=== PATIENT | male | born 1955 | race Caucasian/White ===

== ENCOUNTER 2017-09-12 11:35 | Emergency (ER) | payer MEDICARE ==
[2017-09-12 12:10] LABS: #Eosinphils 1.6 thou/uL (0.0-0.7); #Lymphocytes 2.3 thou/uL (1.20-3.40); #Monocytes 0.8 thou/uL (0.11-0.59); #Neutrophils 5.2 thou/uL (1.40-6.50); %Basophils 0.4 % (0.0-1.0); %Eosinophils 16.4 % (0.0-10.0); %Lymphocytes 22.7 % (21.0-51.0); Mean Platelet Volume 8.9 fL (7.4-10.4); Red Blood Cell (RBC) Count 5.17 mill/uL (4.70-6.10)
[2017-09-12 12:26] LABS: ALT (SGPT) 185 U/L (8-55); AST (SGOT) 249 U/L (5-34); Alkaline Phosphatase 145 U/L (40-150); Anion Gap 12 mmol/L (10-20); BUN (Urea Nitrogen) 14 mg/dL (8.4-25.7); Bilirubin, Total 1.9 mg/dL (0.2-1.2); CK (CPK) 74 U/L (30-200); Calc. Creatinine Clearance 0 mL/min (70-130); Calcium 9.7 mg/dL (7.8-10.44); Carbon Dioxide 24 mmol/L (23-31); Chloride 100 mmol/L (98-107); Estimated GFR-MDRD Greater than 90; Globulin 4.5 g/dL (2.4-3.5)
[2017-09-12 12:37] LABS: Troponin I Less than 0.010 ng/mL (< 0.028)
--- NOTE | 2017-09-12 12:51 | RAD ---
PORTABLE CHEST: 09/12/2017 PROVIDED CLINICAL HISTORY: Loss of balance. FINDINGS: The cardiac and mediastinal silhouette is within normal limits. Vascular calcification involving th e aortic arch. Emphysematous changes are suspected. No focal consolidation, pleural fluid, or pneu mothorax apparent. IMPRESSION: No evidence for an acute cardiopulmonary process. POS: [facility]
--- NOTE | 2017-09-12 13:32 | CT ---
CT BRAIN WITHOUT CONTRAST: Date: 09/12/17 HISTORY: Left-sided ataxia. COMPARISON: None. FINDINGS: There is prominence of the cisterna magna. Mild periventricular white matter disease. No acute hemor rhage or infarct. Old lacunar infarcts bilaterally. Paranasal sinuses and mastoids are clear. IMPRESSION: 1. No acute intracranial abnormality. 2. Moderate microangiopathic changes. POS: [facility]
--- NOTE | 2017-09-21 16:40 | EKG ---
Test Reason : Blood Pressure : / mmHG Vent. Rate : 079 BPM Atrial Rate : 079 BPM P-R Int : 142 ms QRS Dur : 068 ms QT Int : 382 ms P-R-T Axes : 088 016 024 degrees QTc Int : 438 ms Normal sinus rhythm Minimal voltage criteria for LVH, may be normal variant Anterior infarct , age undetermined Abnormal ECG Confirmed by GAEL DAMON, FRANCESCA ([id number]), features editor ZAIDA PALM ([id number]) on 09/21/2017 4:40:28 PM Referred By: Confirmed By:FRANCESCA MAYO MD
== END 2017-09-12 14:39 | disposition home or self-care (01) ==
LOC: ERS 11:35
DX: R27.0 Ataxia, unspecified (principal); I10 Essential (primary) hypertension; F17.210 Nicotine dependence, cigarettes, uncomplicated
CPT/HCPCS: 70450; 71010; 80053; 82550; 82553; 84484; 85025; 93005; 96360

== ENCOUNTER 2017-10-18 09:52 | Day surgery (SDC) | payer MEDICARE ==
[2017-10-10 16:10] VITALS: BMI 19.6
--- NOTE | 2017-10-18 05:52 | HP ---
HISTORY OF PRESENT ILLNESS: Mr. Urban is a pleasant 62-year-old man who presented to our clinic refe rral from Dr. Phoenix for severe cervical spondylosis and myelopathy C3 through C5 and an MRI from [facility] reveals profound central canal and foraminal stenosis. He relates symptoms of bilatera l hand weakness since 07/2017. This is very distressing to him and he would like to have addressed a s soon as possible. PAST MEDICAL HISTORY: Ataxia, dizziness, , and hypertension. CURRENT MEDICATIONS: Lisinopril. ALLERGIES: No known drug allergies. PAST SURGICAL HISTORY: None. PHYSICAL EXAMINATION: NEUROLOGIC: The patient is alert and oriented x3. His gait is severely altered and ataxic using a w alker for balance. His upper extremity motor exam reveals 4/5 weakness and bilateral anesthetic assistant strength a s well as diffusely to the upper extremity motor exam. He has some contractures in the fingers that are chronic. ASSESSMENT: Cervical spondylosis with myelopathy. PLAN: Discussed the case with Dr. Sales, he met with the patient and ultimately advocated for a C3 t hrough C5 ACDF. He explained to the patient the risks, benefits, and alternatives to the procedure. The patient expressed understanding and would like to move forward with the surgery as discussed. I do believe the patient is mentally competent and capable of making medical decisions for himself. Ady baumann will move forward with surgery as planned. Marcos Herrera PA-C dictating for Prateek Sales M.D.
[2017-10-18] MEDS ORDERED: CEFAZOLIN/Water 2 GM/20 ML SYRINGE ONE ×2 (12:10→17:06)
[2017-10-18] MEDS ORDERED: Fentanyl 250 MCG/5 ML VIAL ONE (13:24)
[2017-10-18] MEDS ORDERED: Thrombin 5000 UNITS/5 ML VIAL ONE (13:40)
[2017-10-18] MEDS ORDERED: Tamsulosin HCl 0.4 MG CAP ONE (15:54)
[2017-10-18] MEDS ORDERED: Glycopyrrolate 0.2 MG/ML 5 ML SYRINGE ONE (16:05)
[2017-10-18] MEDS ORDERED: Dexamethasone 20 MG/5 ML VIAL ONE (16:05)
[2017-10-18] MEDS ORDERED: Lidocaine 1% PF 5 ML VIAL ONE (16:05)
[2017-10-18] MEDS ORDERED: Ketorolac Tromethamine 30 MG/ML VIAL ONE (16:05)
[2017-10-18] MEDS ORDERED: Propofol 200 MG/20 ML VIAL ONE (16:05)
[2017-10-18] MEDS ORDERED: Ondansetron HCl/PF 4 MG/2 ML Vial ONE (16:05)
[2017-10-18] MEDS ORDERED: PHENYLEPHRINE-NS 100 MCG/ML 10 ML SYRINGE ONE (16:05)
[2017-10-18] MEDS ORDERED: ePHEDrine/0.9% NaCl/PF SYRINGE 50 mg/10 ml ONE (16:05)
[2017-10-18] MEDS ORDERED: Fentanyl 100 MCG/2 ML VIAL ONE (16:18)
--- NOTE | 2017-10-21 14:12 | OP ---
DATE OF SERVICE: 10/18/2017 SURGEON: Prateek Sales M.D. INDUSTRIAL DESIGN INTERN: Vitaliy Herrera PA-C. INDICATION: Prevent neurologic decline. DIAGNOSIS: Cervical spondylitic myelopathy. PROCEDURE: Anterior cervical discectomy and fusion C3-C5. ANESTHESIA: General. PROCEDURE IN DETAIL: The patient was brought into the operating room and placed under general anesth esia. He was placed on the table in a supine position. A transverse incision was planned over the l ateral aspect of the neck on the right. After prepping and draping and after an appropriate operativ e pause, the incision was created. The underlying platysma muscles identified and incised. A blunt tissue plane anterior to the sternocleidomastoid muscle was used to gain access to the prevertebral s pace. After confirming the appropriate level with C-arm fluoroscopy, annulotomies were performed at C3-C4 and C4-C5 disk spaces. Disk material and anterior and posterior osteophytes were removed until there was decompression of the underlying spinal canal. A PEEK cage packed with allograft and autog raft material was placed within the interbody space. An anterior cervical plate was then fashioned t o the front of the spine and secured with a total of 6 screws. Midline and lateral structures were i nspected and found to be free from significant trauma. The wound was irrigated. Hemostasis was main tained throughout. The wound was then closed in anatomic layers and a pressure dressing was applied. There were no known procedural complications.
== END 2017-10-18 17:45 | disposition home or self-care (01) ==
LOC: SDC 09:52
PROVIDERS: ATTEND Neurological Surgery
PROC: 0RG20A0 Fusion of 2 or more Cervical Vertebral Joints with Interbody Fusion Device, Anterior Approach, Anterior Column, Open Approach (ICD-10-PCS; principal; 2017-10-18)
DX: M47.12 Other spondylosis with myelopathy, cervical region (principal); I10 Essential (primary) hypertension; Z79.899 Other long term (current) drug therapy
CPT/HCPCS: 20930; 20936; 22551; 22552; 22853 ×2; 76001; 96374; C1713; J0131; J1100; J1885; J2001; J2405; J2704; J3010

== ENCOUNTER 2018-06-01 11:09 | Inpatient (IN) | payer MEDICARE ==
[2018-06-01] MEDS ORDERED: Morphine 4 MG/ML VIAL ONE (11:29)
[2018-06-01 11:32] LABS: #Basophils 0.1 thou/uL (0.0-0.2); #Lymphocytes 1.9 thou/uL (1.20-3.40); #Neutrophils 13.1 thou/uL (1.40-6.50); %Basophils 0.5 % (0.0-1.0); %Eosinophils 0.1 % (0.0-10.0); %Lymphocytes 11.9 % (21.0-51.0); %Monocytes 6.5 % (0.0-10.0); %Neutrophils 81.2 % (42.0-75.0); Hemoglobin 15.5 g/dL (14.0-18.0); Mean Corpuscular HGB CONC 35.4 g/dL (32.0-36.0); Mean Corpuscular Hemoglobin 34.8 pg (27.0-31.0); Mean Corpuscular Volume 98.3 fL (78.0-98.0); Mean Platelet Volume 8.1 fL (7.4-10.4); Platelet Count 168 thou/uL (130-400); RBC Distribution Width 11.7 % (11.5-14.5); Red Blood Cell (RBC) Count 4.46 mill/uL (4.70-6.10); White Blood Cell (WBC) Count 16.1 thou/uL (4.8-10.8)
[2018-06-01] MEDS ORDERED: Piperacillin/Tazobactam 4.5 GM VIAL ONE (11:39)
[2018-06-01 11:51] LABS: ALT (SGPT) 127 U/L (8-55); AST (SGOT) 142 U/L (5-34); Albumin 3.4 g/dL (3.4-4.8); Alkaline Phosphatase 114 U/L (40-150); Anion Gap 17 mmol/L (10-20); BUN (Urea Nitrogen) 9 mg/dL (8.4-25.7); Bilirubin, Total 1.2 mg/dL (0.2-1.2); Calc. Creatinine Clearance 0 mL/min (70-130); Calcium 9.3 mg/dL (7.8-10.44); Carbon Dioxide 18 mmol/L (23-31); Chloride 102 mmol/L (98-107); Estimated GFR-MDRD Greater than 90; Globulin 4.2 g/dL (2.4-3.5); Glucose 141 mg/dL (80-115); Potassium 4.8 mmol/L (3.5-5.1); Protein, Total 7.6 g/dL (5.8-8.1); Sodium 132 mmol/L (136-145)
--- NOTE | 2018-06-01 11:53 | CT ---
CT OF HEAD NONCONTRAST: COMPARISON: 09/12/17. INDICATION: Fall with head injury and pain. FINDINGS: There is mild prominence of the ventricular system with mild chronic microvascular ischemic disease. Stable added CSF density of the posterior fossa is present that may relate to vivian cisterna magna. There is multifocal punctate hypoattenuation of the bilateral basal ganglia and thalami indicating la cunar infarctions, some of which are age-indeterminate. No hemorrhage, mass effect, or midline shift present. IMPRESSION: 1. No acute intracranial hemorrhage or mass effect. 2. Multifocal lacunar infarctions of the bilateral basal ganglia and thalami, some of which are age- indeterminate. Recommend clinical correlation and, as necessary, followup with noncontrast brain MRI may prove useful. POS: [facility]
--- NOTE | 2018-06-01 12:00 | CT ---
CT OF THE CERVICAL SPINE WITHOUT CONTRAST: INDICATION: History of fall with neck pain. COMPARISON: None. FINDINGS: There is an ACDF spanning C3 through C5. The instrumentation appears intact. There is moderate mult ilevel spondylosis of the cervical spine. There is diffuse osteopenia. Craniocervical junction is w ithin normal limits. The lung apices are clear. IMPRESSION: 1. No acute fracture or subluxation is evident. 2. Postoperative cervical spine. 3. Moderate spondylosis of the cervical spine. POS: [facility]
[2018-06-01] MEDS ORDERED: Adacel (T-DAP) 0.5 ML VIAL ONE (12:01)
--- NOTE | 2018-06-01 12:07 | RAD ---
AP VIEW OF THE PELVIS: INDICATION: Fall with pelvic pain. IMPRESSION: No acute fracture or subluxation is evident. There is mild degenerative arthrosis of both hips. The re are abnormal linear collections of gas seen along both hemipelvic sidewalls suspicious for extrape ritoneal soft tissue gas. This may reflect gluteal laceration or possible perirectal laceration give n the patient has a history of trauma to the rectal region. A CT of the abdomen and pelvis with IV c ontrast was recommended for additional characterization. POS: [facility]
--- NOTE | 2018-06-01 12:09 | RAD ---
FRONTAL VIEW CHEST: COMPARISON: 09/12/17. INDICATION: Fall with injury. FINDINGS: Lungs are clear. No free air beneath the hemidiaphragms. Cardiac silhouette is normal in size for t he portable technique. There is vascular calcification. Surgical change of the cervical spine is pr esent. There is a chronic posttraumatic deformity of the lateral left clavicle. IMPRESSION: No focal consolidation. POS: [facility]
--- NOTE | 2018-06-01 12:16 | CT ---
CT OF THE ABDOMEN AND PELVIS WITH IV CONTRAST: INDICATION: Penetrating injury from a bar in the ground through the rectum with bleeding from the rectum. COMPARISON: None. FINDINGS: There is bibasilar atelectasis. There is cirrhotic morphology of the liver. The pancreas and adrenal glands are normal appearing. T he kidneys are normal appearing. There are moderate calcifications noted involving the abdominopelvic vasculature. There is extensive extraperitoneal gas seen within the pelvis, left greater than right. There is gas extending along the left obturator externis and down the left sciatic nerve. There is extraperitone al gas extending up the anterior aspect of the lower abdominal wall. There is gas extending along th e psoas musculature of the retroperitoneum. No intraperitoneal free air is evident. There is a penetrating injury demonstrated involving the right gluteal fold, anus, and exiting out th e left aspect of the lower rectum on image 73 of series 3 at the level of the pelvic floor musculatur e. There is a presacral fluid and gas collection seen near the injury site on image 68 of series 3. The bladder is unremarkable appearing. The visualized colon appears within normal limits. The smal l bowel is of normal caliber. Small gallstones are seen within the gallbladder. There is diffuse os teopenia. No definite acute osseous abnormality is evident. IMPRESSION: 1. Penetrating traumatic injury seen involving the right gluteal fold entering into the anus and exi ting out the rectum at the level of the left pelvic floor with extensive presacral fluid and gas svitlana ection. There is scattered gas present within the extraperitoneal space of the pelvis, lower anterio r abdominal wall and along the posterior aspect of the left hip. General surgery consultation is rec ommended. 2. Cirrhotic morphology of the liver. 3. Cholelithiasis. 4. Moderate calcification involving the abdominopelvic vasculature. 5. Findings called to Dr. Ta at 11:45 a.m. on 06/01/18. CODE CR POS: [facility]
--- NOTE | 2018-06-01 12:36 | HP ---
DATE OF ADMISSION: 06/01/2018 HISTORY OF PRESENT ILLNESS: Mr. Urban is a 62-year-old man who was ethanol intoxicated last night. The patient reported accidentally falling on top of an exposed utility copper pipe, which is approximately 12 inches in length. He thinks he might have been impaled about 6 inches. The patient reported large amount of blood loss overnight. He thought the injury would get better overnight. This accident occurred approximately 22:00 hours. The patient presented to the emergency department now over 12 hours from injury complaining of severe anorectal pain. The patient reported having gross hematuria last night, but has not urinated since. He denies any abdominal pain at this time. He denies any nausea or vomiting. Denies any fevers or chills. 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 SURGICAL HISTORY: Pertinent for cervical spine fusion in 12/2017. SOCIAL HISTORY: The patient lives independently. He is a disabled wharf labourer. He smokes 1 pack of cigarette per day and has done so for over 50 years. He drinks 4-5 beers per day. He has smoked marijuana in the past. He denies any other illicit drug abuse. FAMILY HISTORY: Notable for father who from complications of head and neck carcinoma, which she thinks was from tobacco abuse. His mother had old age Parkinson's disease. He denies any family history of essential hypertension , heart disease or cancer. PREHOSPITAL MEDICATIONS: Includes lisinopril 20 mg p.o. daily, Tylenol with Codeine p.r.n. and Flexeril p.o. p.r.n. REVIEW OF SYSTEMS: Ten point review of systems essentially unremarkable except for as stated in past medical history and chief complaint. PHYSICAL EXAMINATION: GENERAL: This reveals a 62-year-old normally developed man who is otherwise coherent and interactive and appears stated age. The patient is alert and oriented x3, appears to be in no acute distress at the time of my evaluation. VITAL SIGNS: Includes blood pressure 152/106, pulse 97, respirations 20, temperature 99.1 degrees Fahrenheit and oxygen saturation 97% on room air. HEENT: Reveals normocephalic and atraumatic. Pupils are equal, round, reactive to light and accommodation. Extraocular muscles are intact bilaterally. No scleral icterus present. Oral mucosa is pink and moist. He is edentulous. HEART: Reveals regular rate with sinus tachycardia. No murmurs or gallops auscultated. LUNGS: Clear to auscultation bilaterally. Breathing is regular and unlabored. ABDOMEN: Soft, nontender and nondistended. EXTREMITIES: Reveals 2+ radial and pedal pulses bilaterally. No ankle edema is present. GENITOURINARY: Examination reveals no blood in the urethral meatus. There is no ecchymosis or hematoma of the scrotum or perineum. RECTAL: Examination could not be performed. The patient is exquisitely painful. On my examination, there is a significant amount of induration and old blood in the anosacral region. There is a 3 x 4 cm complex tissue disruption in the area. No gross purulence is present. NEUROLOGIC: Examination reveals no focal deficits present. LABORATORY DATA AND IMAGING DATA: Pertinent laboratory findings today includes CBC with 16,100 white blood cells, hemoglobin and hematocrit 15.5 and 43.9 respectively. Platelet count is 168,000. Metabolic profile: Sodium 132, potassium is 4.8, chloride is 102, bicarbonate is 18, BUN 9, creatinine 0.84, glucose 141, total bilirubin 1.2, AST and ALT both elevated at 142 and 127 respectively. I have personally reviewed the CT scan of the brain which is unremarkable. CT scan of the abdomen and pelvis reveals soft tissue extraperitoneal injury to the anorectal region extending to the sacrum and perineum. There is gas in the soft tissue. Cervical spine CT scan is unremarkable for any fractures or dislocation. IMPRESSION: 1. Traumatic rectal injury secondary to reportedly a 12-inch copper pipe. 2. History of chronic tobacco and alcoholism. 3. History of essential hypertension. PLAN: 1. Given the history of gross hematuria, we will obtain retrograde urethrogram as I am unable to perform adequate rectal examination to exclude prostatic injury. 2. We will also include cystogram to exclude any extraperitoneal bladder injury. 3. The patient will be taken to the operating room for rectal examination under anesthesia with debridement and washout of the involved injury. We will attempt a primary repair if this is obtainable. Otherwise we will consider diverting loop transverse colostomy which will be temporary for this patient. The above findings and plan have been discussed with the patient who indicates understanding of the information given. I have advised the patient the risks and benefits of the proposed surgery. Risks include, but not limited to bleeding, infection, injury to bowel or surrounding structures. The patient faces additional risk for anal stenosis in a delayed fashion. This information given to the patient in the presence of his nurse. He indicates understanding of information provided. I have answered his questions. The patient has given consent for this admission and surgical intervention. LIEN
--- NOTE | 2018-06-01 12:41 | RAD ---
RETROGRADE URETHROGRAM: INDICATION: Concern for urethral injury. TECHNIQUE: The penile urethral meatus was cannulated with a Adelaide tree device. 30 cc of Omnipaque 300 was a dministered in a retrograde fashion through the patient's urethra. FINDINGS: The penile, bulbous, membranous, and prostatic urethra have a normal appearance. There was retrograd e flow of contrast through the urethra into the bladder. There was contrast from the patient's recen t CT examination within the bladder on the slimer image. IMPRESSION: No evidence of urethral injury. POS: [facility]
[2018-06-01 13:14] LABS: Bilirubin Negative (Negative); Blood, Urine Moderate (Negative); Clarity CLEAR (Clear); Glucose, Urine (Dipstick) Negative (Negative); Leukocyte Negative (Negative); Nitrite Negative (Negative); Protein, Urine (Dipstick) Negative (Neg-Trace); Specific Gravity, Urine 1.043 (1.002-1.036); Urobilinogen 0.2 mg/dL (0.2-1.0)
[2018-06-01 13:17] LABS: Bacteria/HPF None Seen HPF (None Seen); Hyaline Casts/LPF 0-3 HYALINE CAST LPF (0-3 Hyaline); Pathc Cast-AUWi Flag 0.58 (0-2.49); RBC/HPF 0-3 HPF (0-3); Squamous Epithelial 0-3 HPF (0-3); WBC/HPF 0-3 HPF (0-3)
[2018-06-01 13:22] LABS: Renal Epithelial None Seen HPF (0-3); Transitional Epithelial NONE SEEN HPF (0-3)
[2018-06-01 13:23] LABS: Amphetamine Not Detected (NotDetected); Barbiturates Screen Not Detected (NotDetected); Benzodiazepine Screen Not Detected (NotDetected); Cocaine Metabolite Screen Detected (NotDetected); Medtox Control Line Valid? VALID (VALID); Medtox Reader # READER 4; Methadone Not Detected (NotDetected); Methamphetamine Not Detected (NotDetected); Opiate Screen Detected (NotDetected); Oxycodone Screen Not Detected (NotDetected); Phencyclidine (PCP) Not Detected (NotDetected); THC/Cannabinoid Screen Not Detected (NotDetected); Tricyclic Screen Not Detected (NotDetected)
[2018-06-01] MEDS ORDERED: Fentanyl 100 MCG/2 ML VIAL ONE ×3 (13:52→18:44)
[2018-06-01] MEDS ORDERED: Ketamine 50 MG/ML VIAL ONE (13:52)
[2018-06-01] MEDS ORDERED: Albuterol Sulfate HFA (OR ONLY) ONE (13:57)
[2018-06-01] MEDS ORDERED: ISOVUE-370 76%-LOCM 1 ML ONE (14:55)
[2018-06-01] MEDS ORDERED: Iopamidol 300 61% 100 ML VIAL FS ONE (15:00)
[2018-06-01] MEDS ORDERED: PHENYLEPHRINE-NS 100 MCG/ML 10 ML SYRINGE ONE (15:56)
[2018-06-01] MEDS ORDERED: Dexamethasone 20 MG/5 ML VIAL ONE (15:56)
[2018-06-01] MEDS ORDERED: Glycopyrrolate 0.2 MG/ML 5 ML SYRINGE ONE (15:56)
[2018-06-01] MEDS ORDERED: Lidocaine 1% PF 5 ML VIAL ONE (15:56)
[2018-06-01] MEDS ORDERED: PROPOFOL 200 MG/20 ML VIAL ONE (15:56)
[2018-06-01] MEDS ORDERED: Phenylephrine HCL 10 MG/ML VIAL ONE (16:07)
[2018-06-01] MEDS ORDERED: Piperacillin/Tazobactam 3.375 GM VIAL ONE (16:32)
[2018-06-01] MEDS ORDERED: Promethazine HCl 25 MG/ML VIAL IM PRN (18:22)
[2018-06-01] MEDS ORDERED: Ondansetron HCl/PF 4 MG/2 ML Vial IVP PRN ×2 (18:22→19:38)
[2018-06-01] MEDS ORDERED: Ondansetron ODT 4 MG TAB PO PRN ×2 (18:22→19:38)
[2018-06-01] MEDS ORDERED: Dextrose 5% in Water 1,000 ML IV PRN ×2 (18:22→19:38)
[2018-06-01] MEDS ORDERED: Dextrose 50% Abboject 50 ML SYRINGE SLOW IVP PRN ×2 (18:22→19:38)
[2018-06-01] MEDS ORDERED: traMADol HCl 50 MG TAB PO PRN (18:26)
[2018-06-01] MEDS ORDERED: Ketorolac Tromethamine 30 MG/ML VIAL IVP PRN (18:26)
[2018-06-01] MEDS ORDERED: Acetaminophen 500 MG TAB PO SCH (18:30)
[2018-06-01] MEDS ORDERED: Fentanyl 100 MCG/2 ML VIAL SLOW IVP PRN (19:13)
[2018-06-01 19:31] VITALS: BMI 20.2
[2018-06-01] MEDS ORDERED: hydrALAZINE 20 MG/ML VIAL SLOW IVP PRN (19:38)
[2018-06-01] MEDS ORDERED: Oxazepam 10 MG CAP PO SCH ×2 (20:00→21:00)
[2018-06-01] MEDS ORDERED: Famotidine/PF 20 mg/2ml Vial SLOW IVP SCH (21:00)
[2018-06-01] MEDS: Sodium Chloride 0.9% 1,000 ML IV SCH (21:12)
[2018-06-01] MEDS: Acetaminophen 1,000 MG in Premix Bag 1 BAG IVPB SCH (21:26)
[2018-06-01] MEDS: Famotidine 20 MG TAB PO SCH (21:27)
[2018-06-01] MEDS: Enoxaparin Sodium 40 MG/0.4 ML SYRINGE SC SCH (21:27)
[2018-06-01] MEDS: Famotidine/PF 20 mg/2ml Vial SLOW IVP SCH (21:54)
--- NOTE | 2018-06-01 22:53 | OP ---
DATE OF OPERATION: 06/01/2018 PREOPERATIVE DIAGNOSIS: Impalement injury to the anorectal region by a 12-inch copper pipe. POSTOPERATIVE DIAGNOSES: 1. Impalement injury to the anorectal region by a 12-inch copper pipe. 2. 4-cm distal rectal injury proximal and including the external sphincter. 3. Complex soft tissue injury in the anosacral region with extensive amount of soft tissue destructi on. PROCEDURES PERFORMED: 1. Rectal examination under anesthesia. 2. Debridement and washout of anosacral injury. 3. Primary repair of a 4-cm rectal laceration. 4. Proctoscopy. 5. Loop transverse colostomy. ESTIMATED BLOOD LOSS: 20 mL. FLUIDS GIVEN: 1500 mL of crystalloids. COUNTS: Sponge and instrument counts certified as correct x2. COMPLICATIONS: None apparent at the time of operation. INDICATIONS FOR PROCEDURE: This is a 62-year-old man who was impaled in the anorectal region by a 12 -inch copper pipe approximately 13 hours prior to presentation. Examination in the Emergency Departm ent was suboptimal due to severe pain. The patient was brought to the operating room for rectal exam ination under anesthesia. Findings are consistent with extensive destruction of soft tissue in the a nosacral region as well as a 4-cm full-thickness distal rectal laceration including the external sphi ncter. DESCRIPTION OF PROCEDURE: Informed consent obtained from the patient, who was brought to the operati ng room and placed in supine position. Following general anesthesia, the patient was placed in the p lavinia position, jackknife. The anorectal and gluteal region were widely prepped and draped in the usual fashion. Digital rectal examination revealed a rectal injury, which extends into the presacral space. I then introduced a proctoscope visualizing the entire length of the injury and no proximal involveme nt. A portion of the external sphincter has been damaged. Necrotic and nonviable tissues were sharp ly debrided using Metzenbaum scissors. The rectal injury was then repaired using a running stitch of 3-0 Vicryl. I then proceeded to inspec t the anosacral region. This created a large defect. Readily available nonviable tissues were sharp ly debrided again using Metzenbaum scissors. The wound cavity was copiously irrigated with saline an d then packed with 1-inch iodoform gauze. Due to the proximity to the anus and the extent of soft tissue destruction, decision was made therefo re to divert fecal stream. To this end, the patient was replaced in a supine position. Under new set of gown and gloves, the abdomen was sterilely prepped and draped in usual fashion. A s upraumbilical midline incision was made using a 15 scalpel. Incision was carried through subcutaneou s tissues maintaining hemostasis using thermocautery. Fascia was incised in midline exposing the per itoneum beneath, which was grasped x2 with hemostats. Peritoneal cavity was then sharply entered usi ng Metzenbaum scissors. I then put a medium-sized Lockwood retractor to gain exposure. Omentum wa s pulled through and then under the omentum, the transverse colon was identified. The loop of the tr ansverse colon was pulled through the wound using a Perkins forceps. I applied Sarika clamps to hold fascial edges apart. I then placed a colostomy bridge through a defect that I created in the transv erse colon mesentery. The remainder of the omentum was then replaced into the peritoneal cavity. Fascia was approximated i n the midline distal and proximal to the loop of transverse colon. This was achieved using interrupt ed sutures of 0 Vicryl. The skin, superior and inferior apices were approximated using interrupted s utures of 4-0 Monocryl. Dermabond was applied there. We then decided to mature the colostomy. To a chieve this, incision was made along the tenia using cautery and extended using Metzenbaum scissors. A functional Gloria colostomy was perfected using interrupted sutures of 2-0 chromic. Ostomy applia nce was then put in place. The patient tolerated these procedures without any apparent complication and he was returned to the recovery room in satisfactory condition.
[2018-06-01] MEDS: Piperacillin/Tazobactam 3.375 GM in Sodium Chloride 0.9% 100 ML IVPB SCH (23:27)
[2018-06-01] MEDS ORDERED: Piperacillin/Tazobactam 3.375 GM in Sodium Chloride 0.9% 100 ML IVPB SCH (23:59)
[2018-06-02] MEDS: Acetaminophen 1,000 MG in Premix Bag 1 BAG IVPB SCH ×3 (01:47→15:10)
[2018-06-02] MEDS: Sodium Chloride 0.9% 1,000 ML IV SCH ×3 (04:28→21:19)
[2018-06-02] MEDS: Piperacillin/Tazobactam 3.375 GM in Sodium Chloride 0.9% 100 ML IVPB SCH ×4 (05:07→23:08)
[2018-06-02] MEDS: Oxazepam 10 MG CAP PO SCH ×3 (05:07→21:18)
[2018-06-02 06:25] LABS: Band 15 % (5-11); Hemoglobin 12.6 g/dL (14.0-18.0); Lymphocytes 6 % (21-51); MDiff Complete? YES; Mean Corpuscular HGB CONC 35.3 g/dL (32.0-36.0); Mean Corpuscular Volume 99.2 fL (78.0-98.0); Mean Platelet Volume 8.9 fL (7.4-10.4); Monocytes 6 % (0-10); Neutrophil 73 % (42-75); PLT Morphology Comment Appears Decreased; Platelet Count 109 thou/uL (130-400); RBC Distribution Width 11.7 % (11.5-14.5); White Blood Cell (WBC) Count 16.1 thou/uL (4.8-10.8)
[2018-06-02 06:38] LABS: ALT (SGPT) 71 U/L (8-55); AST (SGOT) 65 U/L (5-34); Albumin 2.6 g/dL (3.4-4.8); Alkaline Phosphatase 72 U/L (40-150); Anion Gap 10 mmol/L (10-20); BUN (Urea Nitrogen) 14 mg/dL (8.4-25.7); Bilirubin, Total 1.7 mg/dL (0.2-1.2); Calc. Creatinine Clearance 93 mL/min (70-130); Calcium 7.6 mg/dL (7.8-10.44); Carbon Dioxide 21 mmol/L (23-31); Chloride 107 mmol/L (98-107); Estimated GFR-MDRD Greater than 90; Globulin 3.2 g/dL (2.4-3.5); Glucose 153 mg/dL (80-115); Potassium 4.1 mmol/L (3.5-5.1); Protein, Total 5.8 g/dL (5.8-8.1); Sodium 134 mmol/L (136-145)
[2018-06-02] MEDS ORDERED: Folic Acid 1 MG TAB PO SCH (09:00)
[2018-06-02] MEDS: Famotidine/PF 20 mg/2ml Vial SLOW IVP SCH ×2 (09:05→21:19)
[2018-06-02] MEDS: Folic Acid 1 MG TAB PO SCH (09:10)
[2018-06-02] MEDS: Famotidine 20 MG TAB PO SCH ×2 (09:10→21:18)
[2018-06-02] MEDS: Enoxaparin Sodium 40 MG/0.4 ML SYRINGE SC SCH (21:19)
--- NOTE | 2018-06-03 03:48 | PRG ---
DATE OF SERVICE: 06/02/2018 The patient is currently on the surgical floor. He is postop day #1, status post falling and impalin g himself on a post, which penetrated his rectal area. The patient underwent emergent irrigation, de bridement, and had a colostomy placed. He tolerated his procedures well. Overnight, his pain was co ntrolled. He was tolerating clear liquid diet. PHYSICAL EXAMINATION: VITAL SIGNS: Temperature is 97.9, heart rate 70, blood pressure 126/68, respirations 18, oxygen satu ration 95%. GENERAL: The patient is resting comfortably in bed. He is awake, alert, and oriented x3. HEENT: Unremarkable. LUNGS: Clear to auscultation with good inspiratory and expiratory effort. HEART: Regular rate and rhythm. ABDOMEN: Soft, minimally tender, nondistended. His ostomy bag has small amount of liquid stool and a large volume of gas in it. His postop dressing posteriorly is clean, dry, and intact. EXTREMITIES: Neurovascularly intact. LABORATORY DATA: White blood cell count 16.1, hemoglobin 12.6, hematocrit 35.7, platelets 109. Sodi um 134, potassium 4.1, chloride 107, CO2 21, BUN 14, creatinine 0.76, glucose 153, total bilirubin 1. 7, AST 65, ALT 71, alkaline phosphatase 72. ASSESSMENT AND PLAN: 1. Status post fall with impairment and gluteal region. 2. Status post colostomy placement. PLAN: Plan will be to take the patient to the operating room tomorrow for repeat washout and most li siddharth wound VAC placement. The evaluation and examination were done with Dr. Skinner during rounds this morning.
[2018-06-03] MEDS: Oxazepam 10 MG CAP PO SCH ×3 (05:15→21:20)
[2018-06-03] MEDS: traMADol HCl 50 MG TAB PO PRN ×2 (05:15→21:22)
[2018-06-03] MEDS: Piperacillin/Tazobactam 3.375 GM in Sodium Chloride 0.9% 100 ML IVPB SCH ×4 (05:15→23:54)
[2018-06-03] MEDS: Sodium Chloride 0.9% 1,000 ML IV SCH (05:16)
[2018-06-03 05:22] LABS: #Lymphocytes 2.8 thou/uL (1.20-3.40); #Monocytes 0.6 thou/uL (0.11-0.59); #Neutrophils 6.9 thou/uL (1.40-6.50); %Basophils 0.4 % (0.0-1.0); %Eosinophils 0.4 % (0.0-10.0); %Lymphocytes 27.2 % (21.0-51.0); %Monocytes 5.3 % (0.0-10.0); %Neutrophils 66.7 % (42.0-75.0); Hemoglobin 11.4 g/dL (14.0-18.0); Mean Corpuscular HGB CONC 33.9 g/dL (32.0-36.0); Mean Corpuscular Hemoglobin 34.2 pg (27.0-31.0); Platelet Count 93 thou/uL (130-400); RBC Distribution Width 11.8 % (11.5-14.5); Red Blood Cell (RBC) Count 3.32 mill/uL (4.70-6.10); White Blood Cell (WBC) Count 10.4 thou/uL (4.8-10.8)
[2018-06-03 05:41] LABS: Anion Gap 9 mmol/L (10-20); BUN (Urea Nitrogen) 14 mg/dL (8.4-25.7); Calc. Creatinine Clearance 99 mL/min (70-130); Calcium 7.5 mg/dL (7.8-10.44); Carbon Dioxide 20 mmol/L (23-31); Chloride 110 mmol/L (98-107); Estimated GFR-MDRD Greater than 90; Glucose 114 mg/dL (80-115); Magnesium 1.7 mg/dL (1.6-2.6); Potassium 3.5 mmol/L (3.5-5.1); Sodium 135 mmol/L (136-145)
[2018-06-03 05:44] LABS: Phosphorus 1.5 mg/dL (2.3-4.7)
[2018-06-03] MEDS ORDERED: Potassium Phosphate 30 MMOL in Sodium Chloride 0.9% 500 ML IVPB SCH (06:15)
[2018-06-03] MEDS: Famotidine/PF 20 mg/2ml Vial SLOW IVP SCH (08:46)
[2018-06-03] MEDS: Famotidine 20 MG TAB PO SCH ×2 (08:47→21:21)
[2018-06-03] MEDS: Folic Acid 1 MG TAB PO SCH (08:48)
[2018-06-03] MEDS ORDERED: Fentanyl 100 MCG/2 ML VIAL ONE ×2 (10:16→12:10)
[2018-06-03] MEDS: Acetaminophen 500 MG TAB PO SCH ×3 (12:00→23:54)
[2018-06-03] MEDS ORDERED: Ibuprofen 600 MG TAB PO PRN (12:10)
[2018-06-03] MEDS ORDERED: Ondansetron HCl/PF 4 MG/2 ML Vial IVP PRN (12:10)
[2018-06-03] MEDS ORDERED: Promethazine HCl 25 MG/ML VIAL IM PRN (12:10)
[2018-06-03] MEDS ORDERED: Promethazine HCl 25 MG/ML VIAL SLOW IVP PRN (12:10)
[2018-06-03] MEDS ORDERED: Lidocaine 1% PF 5 ML VIAL ONE (13:30)
[2018-06-03] MEDS ORDERED: Glycopyrrolate 0.2 MG/ML 5 ML SYRINGE ONE (13:30)
[2018-06-03] MEDS ORDERED: PROPOFOL 200 MG/20 ML VIAL ONE (13:30)
[2018-06-03] MEDS ORDERED: PHENYLEPHRINE-NS 100 MCG/ML 10 ML SYRINGE ONE (13:30)
[2018-06-03] MEDS ORDERED: Ondansetron HCl/PF 4 MG/2 ML Vial ONE (13:30)
--- NOTE | 2018-06-03 17:24 | OP ---
DATE OF PROCEDURE: 06/03/2018 PREOPERATIVE DIAGNOSIS: Complex rectal and perirectal injury secondary to impalement with 12-inch co pper pipe. POSTOPERATIVE DIAGNOSIS: Complex rectal and perirectal injury secondary to impalement with 12-inch c opper pipe. OPERATIONS PERFORMED: 1. Washout of perirectal wound. 2. Speculum examination of the rectal wound under anesthesia. 3. Wound application to the perirectal wound following washout. DESCRIPTION OF OPERATION: Informed consent obtained from the patient who was brought to the operatin g room and placed in supine position. Following general anesthesia, the patient was placed in a pron e jackknife position. The previous dressings and packings were removed. The wound was explored and necrotic wound edges were sharply debrided using a scalpel. Hemostasis achieved using cautery. The wound bed was then copiously irrigated with saline solution until it was clear. Speculum examination of the rectum revealed intact rectal repair. We then decided to temporarily close the wound with wo und VAC. To achieve this, white wound VAC foam was inserted into the wound bed and then connected to external oblique foam. The wound VAC dressing was then drawn over the whole wound and connected to vacuum assistive device with good suction. The anal meatus was isolated from the wound using a Colop last. The patient tolerated this operation without any apparent complication and was returned to the recovery room in satisfactory condition.
[2018-06-03] MEDS: Enoxaparin Sodium 40 MG/0.4 ML SYRINGE SC SCH (21:21)
[2018-06-04] MEDS: Oxazepam 10 MG CAP PO SCH ×3 (05:36→22:05)
[2018-06-04] MEDS: Piperacillin/Tazobactam 3.375 GM in Sodium Chloride 0.9% 100 ML IVPB SCH ×3 (05:36→18:24)
[2018-06-04] MEDS: Acetaminophen 500 MG TAB PO SCH ×3 (05:36→18:24)
[2018-06-04] MEDS: Folic Acid 1 MG TAB PO SCH (08:29)
[2018-06-04] MEDS: Famotidine 20 MG TAB PO SCH ×2 (08:29→22:05)
[2018-06-04] MEDS: traMADol HCl 50 MG TAB PO PRN (08:31)
[2018-06-04] MEDS ORDERED: Lisinopril 20 MG TAB PO SCH (13:00)
--- NOTE | 2018-06-04 16:41 | PRG ---
DATE OF SERVICE: 06/04/2018 This is a nurse practitioner student, Lela Burden, dictating progress note for Dr. Nash Skinner. SUBJECTIVE: The patient remains on the surgical floor, he is postop day #3 status post fall and impe lling himself on a post which penetrated his rectal area. The patient underwent emergent irrigation, debridement, and had a colostomy placed at that time. He is also postop day #1 for washout and woun d VAC placement at the rectal injury. His pain was well controlled overnight and he is tolerating a regular diet, although he did not eat much breakfast this morning. The patient is passing gas and has a small amount of stool in his colostomy. PHYSICAL EXAMINATION: VITAL SIGNS: Temperature 98.0, pulse 68, respirations 18, SpO2 91% on room air, blood pressure 152/8 0. GENERAL: The patient is resting comfortably in bed. He is awake, alert, and oriented x3. HEENT: Unremarkable. LUNGS: Clear to auscultation with good inspiratory and expiratory effort. CARDIOVASCULAR: Regular rate and rhythm. ABDOMEN: Soft, minimally tender, nondistended. His ostomy bag has a small amount of liquid stool an d a large volume of gas in it. His postop dressing is clean, dry, and intact. EXTREMITIES: Neurovascularly intact. LABORATORY DATA: There is no laboratory data to review this morning. ASSESSMENT AND PLAN: 1. Status post fall with impairment of gluteal region. 2. Status post colostomy placement. 3. Status post wound application to the perirectal wound following washout. PLAN: Plan will be to continue supportive care. We will restart his blood pressure medications, con tinue a regular diet and continue to monitor his colostomy output.
[2018-06-04] MEDS: Enoxaparin Sodium 40 MG/0.4 ML SYRINGE SC SCH (22:05)
[2018-06-05] MEDS: Acetaminophen 500 MG TAB PO SCH ×4 (00:53→17:49)
[2018-06-05] MEDS: Piperacillin/Tazobactam 3.375 GM in Sodium Chloride 0.9% 100 ML IVPB SCH ×3 (00:53→15:04)
[2018-06-05] MEDS: Oxazepam 10 MG CAP PO SCH ×3 (06:02→21:55)
[2018-06-05] MEDS: Folic Acid 1 MG TAB PO SCH (10:06)
[2018-06-05] MEDS: Lisinopril 20 MG TAB PO SCH (10:06)
[2018-06-05] MEDS: Famotidine 20 MG TAB PO SCH ×2 (10:07→21:55)
[2018-06-05] MEDS ORDERED: Morphine 4 MG/ML VIAL ONE (11:36)
[2018-06-05] MEDS ORDERED: Morphine 4 MG/ML VIAL SLOW IVP SCH (11:45)
[2018-06-05] MEDS ORDERED: Ketorolac Tromethamine 30 MG/ML VIAL ONE (12:16)
[2018-06-05] MEDS ORDERED: Ketorolac Tromethamine 30 MG/ML VIAL IVP SCH (12:30)
--- NOTE | 2018-06-05 17:03 | PRG ---
DATE OF SERVICE: 06/05/2018 SUBJECTIVE: Mr. Urban is a 62-year-old man admitted 4 days ago following a penetrating trauma to his rectum. The patient reports inadequate pain control this morning. He rates his pain at 8/10. Otherwise, he is tolerating diet. He denies any dyspnea or syncope. OBJECTIVE: VITAL SIGNS: This morning includes blood pressure 157/75, pulse 101, respiratory rate is 17, tempera ture 98.8 degrees Fahrenheit, oxygen saturation 94% on room air. HEENT: Reveals normocephalic and atraumatic. HEART: Reveals regular rate with sinus tachycardia. No murmurs or gallops auscultated. CHEST: Clear to auscultation bilaterally. Breathing is regular and unlabored. ABDOMEN: Soft, nontender, nondistended. Transverse colostomy is viable and functional with stool an d gas. EXTREMITIES: With 2+ radial and pedal pulses bilaterally. No ankle edema is present. The anorectal wound is evaluated during wound VAC dressing changes. The wound VAC sponge was removed from the wound bed which is clean, no gross purulence noted. Wound VAC will be replaced. Antibiotic therapy will be discontinued at this time. I will continue with pain management and hopefully discharge the patient home within the few days onc e the perirectal wound is judged to be stable. No active infection at present.
[2018-06-05] MEDS: traMADol HCl 50 MG TAB PO SCH (17:49)
[2018-06-05] MEDS: Enoxaparin Sodium 40 MG/0.4 ML SYRINGE SC SCH (21:54)
[2018-06-06] MEDS: Acetaminophen 500 MG TAB PO SCH ×3 (00:40→12:09)
[2018-06-06] MEDS: traMADol HCl 50 MG TAB PO SCH ×3 (00:41→12:09)
[2018-06-06] MEDS: Oxazepam 10 MG CAP PO SCH ×2 (05:13→14:43)
[2018-06-06 06:21] LABS: Anion Gap 8 mmol/L (10-20); BUN (Urea Nitrogen) 15 mg/dL (8.4-25.7); Band 5 % (5-11); Calc. Creatinine Clearance 98 mL/min (70-130); Calcium 8.3 mg/dL (7.8-10.44); Carbon Dioxide 25 mmol/L (23-31); Chloride 108 mmol/L (98-107); Eosinophils 3 % (0-10); Estimated GFR-MDRD Greater than 90; Glucose 95 mg/dL (80-115); Hemoglobin 11.3 g/dL (14.0-18.0); Lymphocytes 33 % (21-51); MDiff Complete? YES; Magnesium 1.6 mg/dL (1.6-2.6); Mean Corpuscular HGB CONC 34.8 g/dL (32.0-36.0); Mean Corpuscular Hemoglobin 34.9 pg (27.0-31.0); Mean Platelet Volume 7.9 fL (7.4-10.4); Monocytes 12 % (0-10); Neutrophil 47 % (42-75); PLT Morphology Comment Appears Decreased; Phosphorus 3.3 mg/dL (2.3-4.7); Platelet Count 125 thou/uL (130-400); Potassium 3.8 mmol/L (3.5-5.1); RBC Distribution Width 11.8 % (11.5-14.5); Red Blood Cell (RBC) Count 3.24 mill/uL (4.70-6.10); Sodium 137 mmol/L (136-145); White Blood Cell (WBC) Count 6.2 thou/uL (4.8-10.8)
[2018-06-06] MEDS: Famotidine 20 MG TAB PO SCH (08:44)
[2018-06-06] MEDS: Lisinopril 20 MG TAB PO SCH (08:45)
[2018-06-06] MEDS: Folic Acid 1 MG TAB PO SCH (08:45)
[2018-06-06] MEDS ORDERED: Amlodipine 10 MG TAB PO SCH ×2 (11:12→11:30)
[2018-06-06] MEDS ORDERED: cloNIDine 0.1 MG TAB PO SCH (14:30)
--- NOTE | 2018-06-06 14:51 | PRG ---
DATE OF SERVICE: 06/06/2018 SUBJECTIVE: Ms. Urban is a 62-year-old man who was impaled by a copper pipe, sustaining a complex re ctal injury. He is post-injury day #5 today. Wound VAC has been in place, was changed yesterday and noting good wound bed. The patient reports adequate pain control today. OBJECTIVE: VITAL SIGNS: Reveals persistent hypertension. His vital signs included blood pressure 162/85, pulse 78, respiratory rate is 16, temperature 97.6 degrees Fahrenheit, oxygen saturation 93% on room air. HEART: Reveals regular rate and rhythm. No murmurs or gallops auscultated. CHEST: Clear to auscultation bilaterally. Breathing is regular and unlabored. ABDOMEN: Soft, nontender, nondistended. Colostomy is viable and functional with stool and gas. NEUROLOGIC: Reveals no focal deficits present. LABORATORY FINDINGS: Includes CBC with 6200 white blood cells, hemoglobin and hematocrit 11.3 and 32 .5 respectively. Platelet count is 125,000. Metabolic profile, sodium 137, potassium 3.8, chloride is 108, bicarbonate 25, BUN 15, creatinine 0.7 2, glucose is 95, magnesium 1.6, phosphorus 3.3. IMPRESSION: 1. Post-injury day #5, status post complex rectal injury by impaling copper pipe. 2. Acute hypomagnesemia. 3. Acute hyperkalemia. 4. Essential hypertension. PLAN: 1. Correct abnormal electrolytes. 2. Start patient on antihypertensives. 3. Analysis Specialist is working on placement of this patient to a [facility]dc facility where we will co ntinue with his outpatient wound care using wound VAC.
[2018-06-06 15:29] VITALS: BP 190/90; TEMP 97.8
[2018-06-06] MEDS ORDERED: Amoxicillin/Potassium Clav 875 MG TAB PO SCH (21:00)
[2018-06-07] MEDS ORDERED: Amlodipine 10 MG TAB PO SCH (09:00)
--- NOTE | 2018-06-07 11:06 | EKG ---
Test Reason : Blood Pressure : / mmHG Vent. Rate : 088 BPM Atrial Rate : 088 BPM P-R Int : 136 ms QRS Dur : 068 ms QT Int : 348 ms P-R-T Axes : -12 044 057 degrees QTc Int : 421 ms Normal sinus rhythm Minimal voltage criteria for LVH, may be normal variant Anteroseptal infarct , age undetermined Abnormal ECG Confirmed by SUKI LOPEZ M.D. ([id number]), online content editor [employer]STAN ([id number]) on 06/07/2018 11:06:10 AM Referred By: Confirmed By:SUKI LOPEZ M.D.
== END 2018-06-06 17:39 | DRG 331 ==
LOC: ERS 11:09 → SDC 13:38 → SURG B 18:28
PROVIDERS: ADMIT Surgery; ATTEND Surgery
PROC: 0D1L0Z4 Bypass Transverse Colon to Cutaneous, Open Approach (ICD-10-PCS; principal; 2018-06-01)
PROC: 0DQP8ZZ Repair Rectum, Via Natural or Artificial Opening Endoscopic (ICD-10-PCS; 2018-06-01)
PROC: 0DBP7ZZ Excision of Rectum, Via Natural or Artificial Opening (ICD-10-PCS; 2018-06-03)
DX: S36.63XA Laceration of rectum, initial encounter (principal); R31.0 Gross hematuria; I10 Essential (primary) hypertension; E83.42 Hypomagnesemia; E87.5 Hyperkalemia; F10.20 Alcohol dependence, uncomplicated; F17.200 Nicotine dependence, unspecified, uncomplicated; Y90.5 Blood alcohol level of 100-119 mg/100 ml; Z98.1 Arthrodesis status; Z86.19 Personal history of other infectious and parasitic diseases; W22.09XA Striking against other stationary object, initial encounter; W18.39XA Other fall on same level, initial encounter
CPT/HCPCS: 36415; 51610; 70450; 71045; 72125; 72170; 74177; 74450; 80048; 80053; 80306; 80307; 81003; 81015; 83735; 84100; 85007; 85025; 85027; 86850; 86900; 86901; 87040; 87149; 90471; 90715; 90732; 93005; 94640; 96365; 96375; G0009; G0390; G8978-GP-CL; G8979-GP-CJ; J0131; J1100; J1650; J1885; J2001; J2270; J2370; J2405; J2543; J2704; J3010; J7050; J7620

== ENCOUNTER 2019-03-05 08:48 | Outpatient (CLI) | payer MEDICARE ==
[2019-03-05 10:30] LABS: #Basophils 0.1 thou/uL (0.0-0.2); #Eosinphils 0.3 thou/uL (0.0-0.7); #Lymphocytes 2.4 thou/uL (1.20-3.40); #Monocytes 0.8 thou/uL (0.11-0.59); #Neutrophils 5.5 thou/uL (1.40-6.50); %Eosinophils 3.3 % (0.0-10.0); %Lymphocytes 26.4 % (21.0-51.0); %Monocytes 8.6 % (0.0-10.0); %Neutrophils 60.7 % (42.0-75.0); Hemoglobin 13.3 g/dL (14.0-18.0); Mean Corpuscular HGB CONC 34.2 g/dL (32.0-36.0); Mean Corpuscular Hemoglobin 33.1 pg (27.0-31.0); Mean Corpuscular Volume 96.7 fL (78.0-98.0); Mean Platelet Volume 9.3 fL (7.4-10.4); Platelet Count 180 thou/uL (130-400); RBC Distribution Width 12.2 % (11.5-14.5); Red Blood Cell (RBC) Count 4.01 mill/uL (4.70-6.10); White Blood Cell (WBC) Count 9.1 thou/uL (4.8-10.8)
[2019-03-05 10:51] LABS: Anion Gap 13 mmol/L (10-20); BUN (Urea Nitrogen) 27 mg/dL (8.4-25.7); Calc. Creatinine Clearance 0 mL/min (70-130); Calcium 9.2 mg/dL (7.8-10.44); Carbon Dioxide 27 mmol/L (23-31); Chloride 98 mmol/L (98-107); Estimated GFR-MDRD 44; Glucose 131 mg/dL (80-115); Sodium 135 mmol/L (136-145)
[2019-03-05 10:56] LABS: Potassium 2.9 mmol/L (3.5-5.1)
[2019-03-05 11:17] LABS: Hemoglobin A1c 4.7 % (4.0-6.0)
--- NOTE | 2019-03-06 07:21 | EKG ---
Test Reason : Blood Pressure : / mmHG Vent. Rate : 051 BPM Atrial Rate : 051 BPM P-R Int : 198 ms QRS Dur : 068 ms QT Int : 462 ms P-R-T Axes : 000 056 039 degrees QTc Int : 425 ms Poor data quality, interpretation may be adversely affected Sinus bradycardia Voltage criteria for left ventricular hypertrophy Anteroseptal infarct (cited on or before 12-SEP-2017) Abnormal ECG When compared with ECG of 01-JUN-2018 11:55, Vent. rate has decreased BY 37 BPM Non-specific change in ST segment in Inferior leads Confirmed by IRAIS CARO ([id number]) on 03/06/2019 7:20:51 AM Referred By: YAMILA Confirmed By:IRAIS CARO
== END 2019-03-05 08:49 | disposition home or self-care (01) ==
LOC: LABBT 08:48
PROVIDERS: ATTEND Surgery
DX: Z01.818 Encounter for other preprocedural examination (principal); Z87.828 Personal history of other (healed) physical injury and trauma
CPT/HCPCS: 80048; 83036; 85025; 93005; 93010

== ENCOUNTER 2019-03-12 05:59 | Inpatient (IN) | payer MEDICARE ==
[2019-03-05 10:14] VITALS: BMI 19.3
[2019-03-12] MEDS ORDERED: Sodium Chloride 0.9% 100 ML ONE (06:25)
[2019-03-12] MEDS ORDERED: cefOXitin 2 GM VIAL ONE (06:25)
[2019-03-12] MEDS ORDERED: Midazolam HCl 2 mg/2 ml Vial ONE (06:44)
[2019-03-12] MEDS ORDERED: Fentanyl 100 MCG/2 ML VIAL ONE ×5 (06:44→12:57)
[2019-03-12 06:58] LABS: Anion Gap 15 mmol/L (10-20); BUN (Urea Nitrogen) 24 mg/dL (8.4-25.7); Calc. Creatinine Clearance 43 mL/min (70-130); Calcium 9.4 mg/dL (7.8-10.44); Carbon Dioxide 24 mmol/L (23-31); Chloride 101 mmol/L (98-107); Estimated GFR-MDRD 47; Glucose 98 mg/dL (80-115); Potassium 3.5 mmol/L (3.5-5.1); Sodium 136 mmol/L (136-145)
[2019-03-12] MEDS ORDERED: Dexamethasone 4 mg/ml Vial ONE (07:23)
[2019-03-12] MEDS ORDERED: Ketorolac Tromethamine 30 MG/ML VIAL ONE ×2 (07:37→12:57)
[2019-03-12] MEDS ORDERED: Ondansetron HCl/PF 4 MG/2 ML Vial IVP PRN (10:37)
[2019-03-12] MEDS ORDERED: HYDROmorphone 2 MG/ML VIAL SLOW IVP PRN (10:37)
[2019-03-12] MEDS ORDERED: Promethazine HCl 25 MG/ML VIAL SLOW IVP PRN (10:37)
[2019-03-12] MEDS ORDERED: Promethazine HCl 25 MG/ML VIAL IM PRN ×2 (10:37→10:47)
[2019-03-12] MEDS ORDERED: PACU-Morphine 4MG/ML VIAL SLOW IVP PRN (10:37)
[2019-03-12] MEDS ORDERED: Dextrose 50% Abboject 50 ML SYRINGE SLOW IVP PRN (10:47)
[2019-03-12] MEDS ORDERED: Ondansetron PF 4 MG/2 ML Vial IVP PRN (10:47)
[2019-03-12] MEDS ORDERED: Dextrose 5% in Water 1,000 ML IV PRN (10:47)
--- NOTE | 2019-03-12 11:32 | OP ---
DATE OF PROCEDURE: 03/12/2019 PREOPERATIVE DIAGNOSIS: Status post colostomy. POSTOPERATIVE DIAGNOSIS: Status post colostomy. OPERATIONS PERFORMED: 1. Exploratory laparotomy. 2. Colostomy takedown with colocolostomy. ANESTHESIA: General endotracheal. ESTIMATED BLOOD LOSS: 30 mL. FLUIDS GIVEN: 1200 mL crystalloids. COUNTS: Sponge and instrument counts were verified as correct x2. COMPLICATIONS: None apparent to operation. INDICATIONS FOR OPERATION: A 63-year-old man previously sustained a complex rectal injury, which was traumatic. Following rectal repair, a loop transverse colostomy was established. The patient underwent an uneventful colonoscopy yesterday. He was brought to the operating room today for colostomy closure. DESCRIPTION OF PROCEDURE: Informed consent was obtained from the patient, he was brought to the operating room and placed in supine position. Following general anesthesia, the colostomy was temporary closed using 0 silk suture. The abdomen was then sterilely prepped and draped in usual fashion. A midline incision was made using #10 scalpel. The incision was carried through subcutaneous tissues maintaining hemostasis using cautery. The previous colostomy was dissected off the lummi fascia circumferentially. The transverse colon was mobilized off the stomach. I created a rent through the transverse mesocolon proximal and distal through the colostomy. A RANDALL stapler was introduced and bowel was divided in these areas. Mesentery of the colostomy specimen was serially divided between clamps and suture ligated with 2-0 silk. Colostomy was passed off the operative field followed by transmission to pathology. The staple ends of the transverse colon were approximated in a [id number] fashion, antimesenteric border using interrupted sutures of 3-0 silk. Enterotomies were made at both apices, through which free ends of RANDALL stapler was introduced, and functional end-to-end and anatomic [id number] colocolostomy was established. Common enterotomies were closed using a reload of RANDALL stapler. Resultant mesenteric defect was closed using a running stitch of 2-0 Vicryl. Abdominal cavity was irrigated with saline. A sheet of Seprafilm was placed in the deep pelvis prior to returning small bowel to normal anatomic location. A second sheet of Seprafilm was placed over the remainder of the small bowel. Omentum was drawn over the remainder of the viscera. The parastomal hernia sac was excised circumferentially out of lummi fascia down to viable tissues. Fascia was then closed in midline using a running stitch of #1 single stranded PDS. Subcutaneous tissue was irrigated clear with saline, perfected hemostasis using cautery. Nonviable skin edges were sharply excised circumferentially using a fresh scalpel. Hemostasis was achieved using cautery. Skin incision was then closed using lacey. Sterile dressings was applied. The patient tolerated the operation without any apparent complication and was returned to recovery room in satisfactory condition. Job ID: [id number]
--- NOTE | 2019-03-12 11:48 | HP ---
HISTORY: This is a 63-year-old man, who is approximately 1 year status post repair of complex rectal injury following trauma. Loop transverse colostomy was established at that time to divert fecal stream. The patient underwent an uneventful colonoscopy yesterday and presented today for colostomy takedown. PAST MEDICAL HISTORY: Significant for essential hypertension, traumatic rectal injury, chronic liver disease, degenerative arthritic disease. PAST SURGICAL HISTORY: Significant for repair of a complex traumatic rectal injury and a loop transverse colostomy in May of 2018. Other pertinent surgical history includes surgery to the left ring finger following an infection. SOCIAL HISTORY: He is . He has greater than 50 pack-year cigarette smoking history. He drinks 4-5 beers per day. He smokes marijuana occasionally, and denies any other illicit drug abuse. FAMILY HISTORY: Notable for father, who from complications of head and neck carcinoma, mother with Parkinson disease. He denies any family history of diabetes mellitus or essential hypertension. PREHOSPITALIZATION MEDICATIONS: Includes, 1. Amlodipine 10 mg p.o. daily. 2. Aspirin 325 mg p.o. daily. 3. Clonidine 0.1 mg p.o. at bedtime. 4. Pepcid 20 mg p.o. at bedtime. 5. Folic acid 1 mg p.o. daily. 6. Lisinopril 20 mg p.o. daily. 7. Tylenol and ibuprofen p.r.n. pain. ALLERGIES: THE PATIENT DENIES ANY KNOWN DRUG ALLERGIES. REVIEW OF SYSTEMS: Ten-point review of systems essentially unremarkable, except as stated in past medical history and chief complaint. PHYSICAL EXAMINATION: GENERAL: Reveals a 63-year-old cachectic-appearing man, who is otherwise coherent and interactive, appears stated age. The patient in no acute distress at the time of my evaluation. HEART: Reveals regular rate and rhythm. No murmurs or gallops auscultated. LUNGS: Clear to auscultation bilaterally. Breathing, regular and nonlabored. ABDOMEN: Soft and scaphoid. He has no tenderness to palpation. Liver and spleen nonpalpable below costal margin. A viable loop transverse colostomy is in place and functional. EXTREMITIES: Reveal 2+ radial and pedal pulses bilaterally. No ankle edema is present. NEUROLOGIC: Reveals no focal deficits present. LABORATORY DATA: The findings include metabolic profile today, sodium is 136, potassium is 3.5, chloride is 101, bicarb is 24, BUN is 24, creatinine is 1.50, glucose is 98. CBC from 03/05/2019 with 9100 white blood cells, hemoglobin and hematocrit 13.3 and 38.8 respectively. Platelet count 180,000. IMPRESSIONS: Almost 1 year status post repair of complex traumatic rectal injury with a loop transverse colostomy. PLAN: The patient will undergo laparotomy today with takedown of the colostomy with colocolostomy. Postoperatively, we will place him on chemical VTE prophylaxis as well as prophylaxis against DTs given his chronic ethanol abuse history. The above findings and plan discussed with the patient, who indicates understanding of information given. I have answered his questions. Job ID: [id number]
[2019-03-12] MEDS: Ketorolac Tromethamine 30 MG/ML VIAL IVP SCH ×3 (12:59→23:08)
[2019-03-12] MEDS: Acetaminophen 1,000 MG in Premix Bag 1 BAG IVPB SCH ×2 (13:00→18:17)
[2019-03-12] MEDS: Potassium Chloride 20 MEQ in Lactated Ringer's 1,000 ML IV SCH ×2 (13:01→20:25)
[2019-03-12] MEDS ORDERED: Bupivacaine HCl 0.5%/Epinephrine 1:200,000/PF 30 ml Vial ONE (13:59)
[2019-03-12] MEDS ORDERED: Glycopyrrolate 0.2 MG/ML 5 ML SYRINGE ONE (14:52)
[2019-03-12] MEDS ORDERED: Lidocaine 1% PF 5 ML VIAL ONE (14:52)
[2019-03-12] MEDS ORDERED: Dexamethasone 20 MG/5 ML VIAL ONE (14:52)
[2019-03-12] MEDS ORDERED: Rocuronium Bromide 10 MG/ML (10ML VIAL) ONE (14:52)
[2019-03-12] MEDS ORDERED: Ondansetron PF 4 MG/2 ML Vial ONE (14:52)
[2019-03-12] MEDS ORDERED: ePHEDrine 50 MG/ML VIAL ONE (14:52)
[2019-03-12] MEDS ORDERED: PHENYLEPHRINE-NS 100 MCG/ML 10 ML SYRINGE ONE (14:52)
[2019-03-12] MEDS ORDERED: PROPOFOL 200 MG/20 ML VIAL ONE (14:52)
[2019-03-12] MEDS: Oxazepam 10 MG CAP PO SCH ×2 (15:16→20:25)
[2019-03-12] MEDS: Famotidine/PF 20 mg/2ml Vial SLOW IVP SCH (20:25)
[2019-03-12] MEDS ORDERED: Enoxaparin Sodium 40 MG/0.4 ML SYRINGE SC SCH (21:00)
[2019-03-13] MEDS: Acetaminophen 1,000 MG in Premix Bag 1 BAG IVPB SCH (01:48)
[2019-03-13] MEDS: Morphine 4 MG/ML VIAL SLOW IVP PRN ×2 (01:49→19:52)
[2019-03-13] MEDS: Ketorolac Tromethamine 30 MG/ML VIAL IVP SCH (05:32)
[2019-03-13] MEDS: Potassium Chloride 20 MEQ in Lactated Ringer's 1,000 ML IV SCH (05:33)
[2019-03-13 06:18] LABS: Band 10 % (5-11); Hemoglobin 12.7 g/dL (14.0-18.0); Lymphocytes 5 % (21-51); MDiff Complete? YES; Mean Corpuscular HGB CONC 33.9 g/dL (32.0-36.0); Mean Corpuscular Hemoglobin 32.7 pg (27.0-31.0); Mean Corpuscular Volume 96.5 fL (78.0-98.0); Mean Platelet Volume 8.8 fL (7.4-10.4); Monocytes 8 % (0-10); Neutrophil 77 % (42-75); Platelet Count 180 thou/uL (130-400); Platelet Morphology Comment Appears Adequate; RBC Distribution Width 12.3 % (11.5-14.5); Red Blood Cell (RBC) Count 3.89 mill/uL (4.70-6.10)
[2019-03-13 06:28] LABS: Anion Gap 17 mmol/L (10-20); BUN (Urea Nitrogen) 25 mg/dL (8.4-25.7); Calc. Creatinine Clearance 39 mL/min (70-130); Calcium 8.9 mg/dL (7.8-10.44); Carbon Dioxide 22 mmol/L (23-31); Chloride 98 mmol/L (98-107); Estimated GFR-MDRD 42; Glucose 110 mg/dL (80-115); Potassium 3.5 mmol/L (3.5-5.1); Sodium 133 mmol/L (136-145)
[2019-03-13 08:31] LABS: Magnesium 1.4 mg/dL (1.6-2.6); Phosphorus 3.3 mg/dL (2.3-4.7)
[2019-03-13] MEDS: Amlodipine 10 MG TAB PO SCH (08:48)
[2019-03-13] MEDS: Oxazepam 10 MG CAP PO SCH ×3 (08:48→19:45)
[2019-03-13] MEDS: Famotidine/PF 20 mg/2ml Vial SLOW IVP SCH (08:48)
[2019-03-13] MEDS ORDERED: Magnesium Sulfate 4 GM in Sodium Chloride 0.9% 250 ML 250 ML IVPB SCH (09:00)
[2019-03-13] MEDS ORDERED: Potassium Phosphate 15 MMOL in Sodium Chloride 0.9% 250 ML 250 ML IVPB SCH (09:00)
[2019-03-13] MEDS ORDERED: Sodium Bicarbonate 150 MEQ in Dextrose 5% in Water 850 ML IV SCH (09:00)
[2019-03-13] MEDS: Famotidine 20 MG TAB PO SCH (09:02)
[2019-03-13] MEDS: hydrALAZINE 20 MG/ML VIAL SLOW IVP PRN (14:03)
[2019-03-13] MEDS: Acetaminophen 500 MG TAB PO SCH ×2 (14:03→19:44)
--- NOTE | 2019-03-13 14:46 | PRG ---
DATE OF SERVICE: 03/13/2019 SUBJECTIVE: Mr. Urban is a 63-year-old man who is postoperative day #1, status post exploratory laparotomy, takedown of transverse colostomy with primary colocolostomy. He reports adequate pain control. He is tolerating clear liquid diet and having adequate urinary function. OBJECTIVE: VITAL SIGNS: This morning include blood pressure 175/75, pulse 63, respiratory rate is 16, temperature is 98.6 degrees Fahrenheit, oxygen saturation 98% on room air. HEART: Reveals regular rate and rhythm. No murmurs or gallops auscultated. LUNGS: Clear to auscultation bilaterally. Breathing, regular and nonlabored. ABDOMEN: Soft and nondistended. Incision is intact, clean, and dry. He has no peritoneal signs on examination. He has adequate bowel sounds in all 4 quadrants. NEUROLOGIC: Reveals no focal deficits present. LABORATORY DATA: Laboratory findings today reveal a CBC with 21,000 white blood cells, hemoglobin and hematocrit 12.7 and 37.5 respectively. Platelet count is 180,000. Differential counts as follows; 77 segmented neutrophils, 10 bands, 5 lymphocytes, and 8 monocytes. Metabolic profile: Sodium 133, potassium 3.5, chloride is 98, bicarb 22, BUN 25, creatinine is 1.67, glucose 110, magnesium 1.4, phosphorus is 3.3. IMPRESSION: 1. Postoperative day #1 status post exploratory laparotomy with colostomy takedown. 2. Acute hypomagnesemia. 3. Acute on chronic renal insufficiency. Note that the patient's creatinine was 2.53 on 02/06/2019, although in May of 2018, he had a normal kidney function. 4. Uncontrolled hypertension. PLAN: 1. Correct abnormal electrolytes. 2. Continue with fluid resuscitation using urinary output and renal function as endpoint of resuscitation. 3. We will resume oral antihypertensives and monitor the patient for adequate blood pressure control. Above findings and plan discussed with the patient who indicates understanding of information given. I have answered his questions. Job ID: [id number]
[2019-03-13] MEDS: Enoxaparin Sodium 40 MG/0.4 ML SYRINGE SC SCH (19:44)
[2019-03-13] MEDS: cloNIDine 0.1 MG TAB PO SCH (19:44)
[2019-03-13] MEDS: Lactated Ringer's 1,000 ML IV SCH (19:45)
[2019-03-14] MEDS: Acetaminophen 500 MG TAB PO SCH ×3 (04:45→21:51)
[2019-03-14] MEDS: traMADol HCl 50 MG TAB PO PRN ×2 (04:45→20:18)
[2019-03-14] MEDS: Lactated Ringer's 1,000 ML IV SCH (04:45)
[2019-03-14 06:09] LABS: Band 2 % (5-11); Elliptocytes SLIGHT = 2-5 cells (100X) (0-1/hpf); Hemoglobin 11.9 g/dL (14.0-18.0); Lymphocytes 18 % (21-51); MDiff Complete? YES; Mean Corpuscular HGB CONC 35.3 g/dL (32.0-36.0); Mean Corpuscular Hemoglobin 33.9 pg (27.0-31.0); Mean Corpuscular Volume 96.2 fL (78.0-98.0); Monocytes 3 % (0-10); Neutrophil 75 % (42-75); Platelet Count 123 thou/uL (130-400); Platelet Morphology Comment Appears Adequate; RBC Distribution Width 12.3 % (11.5-14.5); Reactive Lymphocytes 1 % (0-10); Red Blood Cell (RBC) Count 3.51 mill/uL (4.70-6.10); White Blood Cell (WBC) Count 13.3 thou/uL (4.8-10.8)
[2019-03-14 06:15] LABS: Anion Gap 12 mmol/L (10-20); BUN (Urea Nitrogen) 21 mg/dL (8.4-25.7); Calc. Creatinine Clearance 49 mL/min (70-130); Calcium 8.5 mg/dL (7.8-10.44); Carbon Dioxide 26 mmol/L (23-31); Chloride 99 mmol/L (98-107); Estimated GFR-MDRD 55; Glucose 104 mg/dL (80-115); Magnesium 1.9 mg/dL (1.6-2.6); Phosphorus 2.9 mg/dL (2.3-4.7); Potassium 3.7 mmol/L (3.5-5.1); Sodium 133 mmol/L (136-145)
[2019-03-14] MEDS ORDERED: Potassium Phosphate 15 MMOL in Sodium Chloride 0.9% 250 ML 250 ML IVPB SCH (08:00)
[2019-03-14] MEDS: Folic Acid 1 MG TAB PO SCH (09:36)
[2019-03-14] MEDS: Escitalopram Oxalate 10 mg Tablet PO SCH (09:36)
[2019-03-14] MEDS: Amlodipine 10 MG TAB PO SCH (09:36)
[2019-03-14] MEDS: Tamsulosin HCl 0.4 MG CAP PO SCH (09:36)
[2019-03-14] MEDS: Oxazepam 10 MG CAP PO SCH ×3 (09:36→20:18)
[2019-03-14] MEDS: Famotidine 20 MG TAB PO SCH (09:36)
--- NOTE | 2019-03-14 15:52 | PRG ---
DATE OF SERVICE: 03/14/2019 SUBJECTIVE: The patient was seen this morning, lying in bed. Reported no acute events overnight; however, he did have hiccuping this morning with some pain near his midline abdominal incision. He has been tolerating his clear liquid diet and ambulating significantly. He is passing gas but has not had a bowel movement yet. He says that he feels more bloated today than previously, but denies nausea, vomiting, or diarrhea. OBJECTIVE: VITAL SIGNS: Temperature 98.6, pulse 75, respirations 16, oxygen saturation 96% on room air, blood pressure 156/88. GENERAL: Frail elderly male, lying in bed with no signs of acute distress. PULMONARY: Equal chest rise and fall. Clear breath sounds bilaterally. No signs of acute respiratory distress. CARDIAC: Regular rate and rhythm. No murmurs, gallops, or rubs. GI: Abdomen is soft, mildly tender to palpation and nondistended. Midline abdominal wound with lacey in place. Wound is clean, dry, and intact with no signs of discharge or purulence or infection. EXTREMITIES: 2+ pulses in all extremities. No significant swelling noted. Gross motor and sensation are intact in all 4 extremities. NEURO: GCS is 15. Pupils are equal, round, reactive to light bilaterally. LABORATORY FINDINGS: White count 13.3, hemoglobin 11.9, hematocrit 33.8, and platelets 123. Sodium 133, potassium 3.7, chloride 99, carbon dioxide 26, BUN 21, creatinine 1.31, glucose 104, phosphorus 2.9, magnesium 1.9. DIAGNOSTIC FINDINGS: There are no new diagnostic findings to report. ASSESSMENT: 1. On postop day #2, status post exploratory laparotomy with colostomy takedown. 2. Hypokalemia and hypophosphatemia. 3. Xttca-jy-yaloqwo renal insufficiency, improving. 4. Uncontrolled hypertension, improving. PLAN: Correct electrolytes today. Continue to monitor kidney function as it is improving now. Continue clear liquid diet, but we will start Ensure Envil today and discontinue Ensure Clear, discontinue LR 100 an hour. The patient encouraged to continue walking as much as possible and sitting up in a chair to precipitate return of bowel function. We will not start any other p.o. antihypertensives at this time due to his decreased kidney function. He is on his home Flomax, Lexapro, clonidine, and Norvasc at this time. He is also on Serax and is not showing any signs of alcohol withdrawal. The patient was discussed with Dr. Skinner, this morning after rounds. Job ID: [id number] [facility]
[2019-03-14] MEDS: cloNIDine 0.1 MG TAB PO SCH (20:18)
[2019-03-14] MEDS: Enoxaparin Sodium 40 MG/0.4 ML SYRINGE SC SCH (20:19)
[2019-03-14] MEDS ORDERED: Metoprolol Tartrate 5 MG/5 ML VIAL IVP PRN (20:48)
[2019-03-14 22:09] LABS: #Basophils 0.1 thou/uL (0.0-0.2); #Lymphocytes 1.8 thou/uL (1.20-3.40); #Monocytes 0.7 thou/uL (0.11-0.59); #Neutrophils 12.6 thou/uL (1.40-6.50); %Basophils 0.4 % (0.0-1.0); %Eosinophils 0.1 % (0.0-10.0); %Monocytes 4.8 % (0.0-10.0); %Neutrophils 82.8 % (42.0-75.0); Hemoglobin 14.3 g/dL (14.0-18.0); Mean Corpuscular HGB CONC 34.1 g/dL (32.0-36.0); Mean Corpuscular Hemoglobin 33.1 pg (27.0-31.0); Mean Corpuscular Volume 97.2 fL (78.0-98.0); Platelet Count 163 thou/uL (130-400); RBC Distribution Width 12.5 % (11.5-14.5); Red Blood Cell (RBC) Count 4.33 mill/uL (4.70-6.10); White Blood Cell (WBC) Count 15.2 thou/uL (4.8-10.8)
[2019-03-14 22:32] LABS: Anion Gap 15 mmol/L (10-20); BUN (Urea Nitrogen) 18 mg/dL (8.4-25.7); Calc. Creatinine Clearance 45 mL/min (70-130); Calcium 9.1 mg/dL (7.8-10.44); Carbon Dioxide 27 mmol/L (23-31); Chloride 99 mmol/L (98-107); Estimated GFR-MDRD 49; Glucose 131 mg/dL (80-115); Magnesium 1.6 mg/dL (1.6-2.6); Phosphorus 3.8 mg/dL (2.3-4.7); Potassium 3.9 mmol/L (3.5-5.1); Sodium 137 mmol/L (136-145)
[2019-03-14 22:37] LABS: Troponin I 0.011 ng/mL (< 0.028)
[2019-03-14] MEDS ORDERED: Magnesium 2 GM/50 ML 2 GM in Premix Bag 1 BAG IVPB SCH (23:30)
[2019-03-15 05:24] LABS: #Basophils 0.1 thou/uL (0.0-0.2); #Eosinphils 0.1 thou/uL (0.0-0.7); #Lymphocytes 2.7 thou/uL (1.20-3.40); #Monocytes 0.9 thou/uL (0.11-0.59); #Neutrophils 10.8 thou/uL (1.40-6.50); %Basophils 0.4 % (0.0-1.0); %Eosinophils 0.5 % (0.0-10.0); %Lymphocytes 18.7 % (21.0-51.0); %Monocytes 6.2 % (0.0-10.0); %Neutrophils 74.3 % (42.0-75.0); Hemoglobin 12.1 g/dL (14.0-18.0); Mean Corpuscular HGB CONC 34.7 g/dL (32.0-36.0); Mean Corpuscular Hemoglobin 33.6 pg (27.0-31.0); Mean Corpuscular Volume 96.8 fL (78.0-98.0); Mean Platelet Volume 8.8 fL (7.4-10.4); Platelet Count 154 thou/uL (130-400); RBC Distribution Width 12.5 % (11.5-14.5); Red Blood Cell (RBC) Count 3.61 mill/uL (4.70-6.10); White Blood Cell (WBC) Count 14.6 thou/uL (4.8-10.8)
[2019-03-15] MEDS: Acetaminophen 500 MG TAB PO SCH ×3 (05:26→20:27)
[2019-03-15 05:36] LABS: Anion Gap 9 mmol/L (10-20); BUN (Urea Nitrogen) 20 mg/dL (8.4-25.7); Calc. Creatinine Clearance 44 mL/min (70-130); Calcium 8.5 mg/dL (7.8-10.44); Carbon Dioxide 29 mmol/L (23-31); Chloride 100 mmol/L (98-107); Estimated GFR-MDRD 48; Glucose 111 mg/dL (80-115); Magnesium 2.1 mg/dL (1.6-2.6); Phosphorus 3.8 mg/dL (2.3-4.7); Potassium 3.6 mmol/L (3.5-5.1); Sodium 134 mmol/L (136-145)
[2019-03-15] MEDS: Escitalopram Oxalate 10 mg Tablet PO SCH (09:34)
[2019-03-15] MEDS: Amlodipine 10 MG TAB PO SCH (09:34)
[2019-03-15] MEDS: Tamsulosin HCl 0.4 MG CAP PO SCH (09:34)
[2019-03-15] MEDS: Famotidine 20 MG TAB PO SCH (09:34)
[2019-03-15] MEDS: Folic Acid 1 MG TAB PO SCH (09:34)
[2019-03-15] MEDS: Oxazepam 10 MG CAP PO SCH ×3 (09:35→20:27)
[2019-03-15] MEDS ORDERED: Potassium Chloride 20 MEQ TAB PO SCH (12:00)
[2019-03-15] MEDS ORDERED: Potassium Phosphate 15 MMOL in Sodium Chloride 0.9% 100 ML IVPB SCH (12:30)
--- NOTE | 2019-03-15 13:17 | PRG ---
DATE OF SERVICE: 03/15/2019 This is Kirstie Reagan PA-C dictating a report for Nash Skinner DO. SUBJECTIVE: The patient developed acute AFib with RVR overnight at a rate of 135. I was contacted by the nighttime nurse. AFib was confirmed with an EKG. He was given 5 mg of IV metoprolol x1 and transferred to the telemetry unit. Since that time, the patient has been in AFib and has been rate controlled. Occasionally, rate goes into the 110s; however, he has been consistently in the 70s and 80s. At that time, the patient's nurse also reported that the patient had developed some hematuria during the day yesterday. On my evaluation this morning, the patient reports that he does not have a history of AFib and he is not symptomatic, denying chest pain, palpitations, shortness of breath, and fatigue. He does state that occasionally when he exerts himself he does have a sensation of his heartbeat in his chest and his head, but that resolves on its own. He has not been seen by physician for those sensations. The patient also reports that hematuria has been off and on for the past couple of months and his primary care physician has referred him to a urologist or quality control tester. The patient is not sure which type of doctor, but he should be seeing him within the next month. He does report that hematuria is intermittent and resolves on its own. It is not painful and he does not have difficulty voiding. This morning, the patient reports continued flatus, but no bowel movement. He has been ambulating regularly. Denies nausea, vomiting, or diarrhea. Reports some tenderness to his abdomen whenever he twists his body when the lacey in his midline incision pull a little bit. Otherwise, he does not have any other significant pain. OBJECTIVE: VITAL SIGNS: Temperature 97.3, pulse 60, respirations 18, oxygen saturation 95% on room air, blood pressure 124/80. GENERAL: Frail, elderly male, lying in bed, with no signs of acute distress. PULMONARY: Equal chest rise and fall. Clear breath sounds bilaterally. No signs of acute respiratory distress. CARDIAC: Irregularly irregular rhythm with normal rate. No murmurs, gallops, or rubs. GI: Abdomen is soft, mildly tender to palpation, and nondistended. Midline abdominal wound with lacey in place. Wound is clean, dry, and intact with no signs of discharge or purulence or infection. EXTREMITIES: 2+ pulses in all extremities. No significant swelling noted. Gross motor and sensation are intact in all 4 extremities. NEUROLOGIC: GCS is 15. Pupils equal, round, and reactive to light bilaterally. LABORATORY FINDINGS: White count 14.6, hemoglobin 12.1, hematocrit 34.9, and platelets 154. Sodium 134, potassium 3.6, chloride 100, carbon dioxide 29, BUN 20, creatinine 1.48, glucose 111. Phos 3.8 and magnesium 2.1. Troponin 0.011. BNP 653.3. DIAGNOSTIC FINDINGS: There are no new diagnostic findings to report. ASSESSMENT: 1. Postoperative day #3 status post exploratory laparotomy with colostomy takedown. 2. Hypokalemia and hypophosphatemia. 3. Xcpvf-[id number] renal insufficiency, stable. 4. Uncontrolled hypertension, improved. 5. Acute onset of atrial fibrillation, now rate controlled. Likely due to acute congestive heart failure exacerbation. PLAN: The patient will be started on metoprolol tartrate 25 mg b.i.d. We will continue 5 mg IV metoprolol p.r.n. as well. Echo is pending, has been completed, and we will follow up the final results. We will give the patient's Lasix 20 mg IV b.i.d. x1 day and follow up urinary output. We will replace potassium and phosphorus today. Continue to encourage the patient to ambulate as much as possible and waiting for return of bowel function. Discontinue clear liquid diet and we will start a soft diet with stool softener, such as Colace, today. This patient was discussed with Dr. Skinner this morning after rounds. Job ID: [id number]
[2019-03-15] MEDS: Docusate 100 MG CAP PO SCH (20:26)
[2019-03-15] MEDS: cloNIDine 0.1 MG TAB PO SCH (20:26)
[2019-03-15] MEDS: Metoprolol Tartrate 25 MG TAB PO SCH (20:27)
[2019-03-15] MEDS: Enoxaparin Sodium 40 MG/0.4 ML SYRINGE SC SCH (20:27)
[2019-03-15] MEDS ORDERED: Furosemide 20 MG/2 ML VIAL SLOW IVP SCH (21:00)
[2019-03-16] MEDS: Acetaminophen 500 MG TAB PO SCH ×3 (05:20→21:23)
[2019-03-16 07:17] LABS: Hemoglobin 12.1 g/dL (14.0-18.0); Mean Corpuscular HGB CONC 34.4 g/dL (32.0-36.0); Mean Corpuscular Hemoglobin 33.3 pg (27.0-31.0); Mean Platelet Volume 8.6 fL (7.4-10.4); Platelet Count 168 thou/uL (130-400); RBC Distribution Width 12.2 % (11.5-14.5); Red Blood Cell (RBC) Count 3.62 mill/uL (4.70-6.10); White Blood Cell (WBC) Count 12.9 thou/uL (4.8-10.8)
[2019-03-16 07:23] LABS: Anion Gap 13 mmol/L (10-20); BUN (Urea Nitrogen) 26 mg/dL (8.4-25.7); Calc. Creatinine Clearance 28 mL/min (70-130); Calcium 8.8 mg/dL (7.8-10.44); Carbon Dioxide 24 mmol/L (23-31); Chloride 100 mmol/L (98-107); Estimated GFR-MDRD 31; Glucose 126 mg/dL (80-115); Magnesium 1.7 mg/dL (1.6-2.6); Phosphorus 4.2 mg/dL (2.3-4.7); Potassium 3.7 mmol/L (3.5-5.1); Sodium 133 mmol/L (136-145)
[2019-03-16] MEDS ORDERED: Furosemide 20 MG/2 ML VIAL SLOW IVP SCH (07:30)
[2019-03-16] MEDS ORDERED: Magnesium 2 GM/50 ML 2 GM in Premix Bag 1 BAG IVPB SCH (07:30)
[2019-03-16] MEDS ORDERED: Potassium Chloride 40 MEQ in Sodium Chloride 0.9% 250 ML 250 ML IVPB SCH (08:00)
[2019-03-16 08:24] LABS: Band 3 % (5-11); Eosinophils 3 % (0-10); Lymphocytes 13 % (21-51); MDiff Complete? YES; Monocytes 5 % (0-10); Neutrophil 76 % (42-75); RBC Morphology Normal
[2019-03-16] MEDS: Escitalopram Oxalate 10 mg Tablet PO SCH (08:47)
[2019-03-16] MEDS: Famotidine 20 MG TAB PO SCH (08:48)
[2019-03-16] MEDS: Tamsulosin HCl 0.4 MG CAP PO SCH (08:48)
[2019-03-16] MEDS: Folic Acid 1 MG TAB PO SCH (08:48)
[2019-03-16] MEDS: Amlodipine 10 MG TAB PO SCH (08:48)
[2019-03-16] MEDS: Docusate 100 MG CAP PO SCH ×2 (08:48→21:22)
[2019-03-16] MEDS: Metoprolol Tartrate 25 MG TAB PO SCH ×2 (08:48→21:23)
[2019-03-16] MEDS: Oxazepam 10 MG CAP PO SCH ×3 (11:12→21:23)
--- NOTE | 2019-03-16 11:22 | PRG ---
DATE OF SERVICE: 03/16/2019 SUBJECTIVE: Mr. Urban is a 63-year-old man postop day #4 status post exploratory laparotomy, colostomy takedown with colocolostomy. He is passing flatus. He reports adequate pain control. The patient developed acute onset atrial fibrillation over the weekend requiring transfer to the telemetry. He was treated for acute congestive heart failure. He has been in normal sinus rhythm since yesterday. This morning, he denies any chest pain, syncope, or abdominal pain. He has had no bowel movements. He is tolerating soft diet. OBJECTIVE: VITAL SIGNS: This morning includes blood pressure 142/78, pulse 81 and regular, respiratory rate is 20, temperature 98.6 degrees Fahrenheit, and oxygen saturations 94% on room air. HEART: Reveals regular rate and rhythm. No murmurs or gallops auscultated. LUNGS: Clear to auscultation bilaterally. Breathing, regular and nonlabored. ABDOMEN: Soft and nondistended. Incision is intact, clean, and dry. Bowel sounds in all 4 quadrants are normoactive. EXTREMITIES: Reveal 2+ radial and pedal pulses bilaterally. No ankle edema is present. NEUROLOGIC: Reveals no focal deficits present. LABORATORY FINDINGS: Today includes a CBC with 12,900 white blood cells and hemoglobin and hematocrit 12.1 and 35.1 respectively. Platelet count is 168,000. Differential count as follows 76% segmented neutrophils, 3 bands, 13 lymphocytes, and 5 monocytes. Metabolic profile; sodium 133, potassium 3.7, chloride is 100, bicarb 24, BUN 26, creatinine is 2.16, glucose is 126, magnesium 1.7, and phosphorus is 4.2. BNP is improved at 232. This is in contrast to 653 yesterday. IMPRESSION: 1. Postop day #4 status post exploratory laparotomy with colostomy takedown. 2. Resolved acute congestive heart failure. 3. Resolved acute onset of atrial fibrillation. 4. Acute hypokalemia. 5. Acute hypomagnesemia. PLAN: 1. Correct abnormal electrolytes. 2. The patient is hemodynamically stable for transfer to general surgical floor. We will increase activity as tolerated. 3. We will anticipate discharge within next 24 to 48 hours once bowel movement has been recorded. Job ID: [id number]
--- NOTE | 2019-03-16 12:35 | PQF ---
CLINICAL DOCUMENTATION IMPROVEMENT CLARIFICATION FORM: ICD-10 Updated PLEASE DO AN ADDENDUM TO THE PROGRESS NOTE WITH ANY DOCUMENTATION UPDATES OR ADDITIONS AND CARRY THROUGH TO DC SUMMARY. THANK YOU. DATE: 03/16/2019 ATTN: Dr. Skinner Please exercise your independent, professional judgment in responding to the clarification form. Clinical indicators are provided on the bottom of this form for your review Please check appropriate box(s): [ ] Acute Renal Failure (ARF) / Acute Kidney Injury (BARBARA) [ x ] Acute on Chronic Renal Failure please specify Stage of CKD (see below) [ ] CKD without ARF/BARBARA please specify Stage of CKD [ ] Other diagnosis [ ] Unable to determine In addition, please specify: Present on Admission (POA): [x ] Yes [ ] No [ ] Unable to determine For continuity of documentation, please document condition throughout progress notes and discharge summary. Thank You. CLINICAL INDICATORS - SIGNS / SYMPTOMS / LABS 03/12 03/13 03/14 03/15 03/16 LABS: Creatinine 1.50 1.67 1.31 1.48 2.16 Estimated GFR 47 42 55 48 31 PN 03/13: Acute on chronic renal insufficiency. Note that the patient's creatinine was 2.53 on 02/06/2019, although in May of 2018 he had a normal kidney function. RISKS: PN 03/13: POD #1 s/p exploratory laparotomy with colostomy takedown. Acute on Chronic renal insufficiency. Uncontrolled hypertension. TREATMENT: MAR: 03/12-03/13 Lactated Ringer's 1.000 ml Potassium Chloride 20 mEq IV 100mls/hr PN 03/13: Continue with fluid resuscitation using urinary output and renal function as endpoint of resuscitation. National Kidney [employer] Guidelines for CKD Staging Stage I Kidney damage with normal or increased GFR GFR > 90 Stage II Kidney damage with mildly decreased GFR GFR 60-89 Stage III Kidney damage with moderately decreased GFR GFR 30-59 Stage IV Kidney damage with severely decreased GFR GFR 16-29 Stage V Kidney failure GFR<15 ESRD End Stage Renal Disease On dialysis Acute Renal Failure/Acute Kidney Failure defined as: Increases in SCr by (>) 0.3 mg/dl within 48 hours OR- Increases in SCr by (>) 1.5 times baseline, known or presumed to have occurred within the prior 7 days OR- Urine volume < 0.5 ml/kg/hour for 6 hours (KDIGO supplement 2012 for RIFLE/MIKA criteria) Thank you, Cristy (This form is maintained as a part of the permanent medical record) 2014 [employer] All Rights Reserved Cristy Teixeira RN, BSN [email or web address] Office: [phone] [facility]
[2019-03-16] MEDS: cloNIDine 0.1 MG TAB PO SCH (21:22)
[2019-03-16] MEDS ORDERED: Enoxaparin Sodium 30 MG/0.3 ML SYRINGE SC SCH (21:45)
[2019-03-16] MEDS: Enoxaparin Sodium 40 MG/0.4 ML SYRINGE SC SCH (22:08)
[2019-03-17] MEDS: Acetaminophen 500 MG TAB PO SCH ×3 (05:35→20:50)
[2019-03-17 06:20] LABS: Anion Gap 13 mmol/L (10-20); BUN (Urea Nitrogen) 30 mg/dL (8.4-25.7); Calc. Creatinine Clearance 27 mL/min (70-130); Calcium 8.7 mg/dL (7.8-10.44); Carbon Dioxide 25 mmol/L (23-31); Chloride 101 mmol/L (98-107); Estimated GFR-MDRD 30; Glucose 100 mg/dL (80-115); Magnesium 1.8 mg/dL (1.6-2.6); Phosphorus 4.3 mg/dL (2.3-4.7); Potassium 3.7 mmol/L (3.5-5.1); Sodium 135 mmol/L (136-145)
[2019-03-17] MEDS: Tamsulosin HCl 0.4 MG CAP PO SCH (08:54)
[2019-03-17] MEDS: Famotidine 20 MG TAB PO SCH (08:54)
[2019-03-17] MEDS: Escitalopram Oxalate 10 mg Tablet PO SCH (08:55)
[2019-03-17] MEDS: Docusate 100 MG CAP PO SCH ×2 (08:55→20:50)
[2019-03-17] MEDS: Enoxaparin Sodium 30 MG/0.3 ML SYRINGE SC SCH (08:56)
[2019-03-17] MEDS: Metoprolol Tartrate 25 MG TAB PO SCH (08:56)
[2019-03-17] MEDS: Folic Acid 1 MG TAB PO SCH (08:56)
[2019-03-17] MEDS: Polyethylene Glycol 3350 17 GM Packet PO SCH (08:57)
[2019-03-17] MEDS: Oxazepam 10 MG CAP PO SCH ×3 (08:57→20:49)
[2019-03-17] MEDS ORDERED: Polyethylene Glycol 3350 17 GM Packet PO SCH (09:00)
[2019-03-17 09:36] LABS: INR-International Normal Ratio 1.1; Prothrombin Time 14.3 SEC (12.0-14.7)
[2019-03-17] MEDS: Metoprolol Tartrate 50 MG TAB PO SCH ×2 (09:40→20:49)
--- NOTE | 2019-03-17 09:50 | RAD ---
UPRIGHT AND SUPINE FRONTAL IMAGING OF THE ABDOMEN AND PELVIS: Date: 03-17-19 Comparison: None. History: Evaluate abdomen following surgery. FINDINGS: Small volume free intraperitoneal air noted in the right upper and left upper quadrant, consistent wi th the provided history of recent abdominal surgery. Cutaneous lacey are also noted anteriorly. The re is a suture line involving the bowel within the left upper quadrant. There is gas within large and small bowel within the abdomen/pelvis. No convincing evidence for small bowel obstruction is seen. IMPRESSION: Small volume free intraperitoneal air, consistent with history of recent surgery. Gas within nondilat ed large and small bowel with no convincing evidence for bowel obstruction. POS: TPC
[2019-03-17] MEDS: Lactated Ringer's 500 ML IV SCH ×3 (09:57→17:11)
--- NOTE | 2019-03-17 10:24 | ULT ---
Bilateral renal ultrasound CLINICAL INDICATION: Renal Insufficiency COMPARISON: None FINDINGS: Right kidney: No solid mass, or hydronephrosis. Left kidney: No solid mass, or hydronephrosis. Urinary bladder: Normal IMPRESSION: Unremarkable exam.
[2019-03-17] MEDS: Lactated Ringer's 1,000 ML IV SCH (14:10)
[2019-03-17 14:32] LABS: Creatinine, Urine 62.67 mg/dL (63-166)
[2019-03-17] MEDS ORDERED: Lactated Ringer's 500 ML IV SCH (15:45)
--- NOTE | 2019-03-17 16:12 | PRG ---
DATE OF SERVICE: 03/17/2019 SUBJECTIVE: The patient is postop day 5 status post exploratory laparotomy with colostomy takedown with colocolostomy. The patient has had a bowel movement. He continues to pass flatus and he is tolerating a diet. OBJECTIVE: VITAL SIGNS: Temperature 98.4, heart rate 71, blood pressure 152/75, respirations 14, oxygen saturation 93% on room air. GENERAL: The patient is resting comfortably in bed. He is awake, alert, oriented, and appropriate. HEENT: Unremarkable. LUNGS: Clear to auscultation with good inspiratory and expiratory effort. HEART: Regular rate and rhythm. ABDOMEN: Soft, flat, nontender with active bowel sounds. Postop dressing is clean, dry, and intact. EXTREMITIES: Neurovascularly intact x4. LABORATORY FINDINGS: Sodium 135, potassium 3.7, chloride 101, CO2 of 25, BUN 30, creatinine is 2.24, glucose 100, magnesium 1.8, phosphorus 4.3. ASSESSMENT: 1. Postop day 5, status post exploratory laparotomy with colostomy takedown. 2. Resolved acute congestive heart failure. 3. Resolved acute onset of atrial fibrillation. 4. Acute kidney injury. PLAN: Plan will be to do gentle hydration with lactated Ringer's. Recheck his labs in the morning. Continue to encourage physical and occupational therapy, diet, and likely be able to be discharged home once his renal function is corrected. The evaluation was done this morning with Dr. Skinner during rounds. Job ID: [id number]
[2019-03-17] MEDS: cloNIDine 0.1 MG TAB PO SCH (20:49)
[2019-03-18] MEDS: Lactated Ringer's 1,000 ML IV SCH ×3 (00:35→21:56)
[2019-03-18 05:32] LABS: ALT (SGPT) 13 U/L (8-55); AST (SGOT) 22 U/L (5-34); Albumin 2.6 g/dL (3.4-4.8); Alkaline Phosphatase 139 U/L (40-150); Anion Gap 13 mmol/L (10-20); BUN (Urea Nitrogen) 35 mg/dL (8.4-25.7); Bilirubin, Total 0.6 mg/dL (0.2-1.2); Calc. Creatinine Clearance 31 mL/min (70-130); Calcium 8.8 mg/dL (7.8-10.44); Carbon Dioxide 25 mmol/L (23-31); Chloride 102 mmol/L (98-107); Estimated GFR-MDRD 35; Globulin 3.9 g/dL (2.4-3.5); Glucose 113 mg/dL (80-115); Potassium 3.6 mmol/L (3.5-5.1); Protein, Total 6.5 g/dL (5.8-8.1); Sodium 136 mmol/L (136-145)
[2019-03-18] MEDS: Acetaminophen 500 MG TAB PO SCH ×3 (06:24→21:55)
[2019-03-18] MEDS: Escitalopram Oxalate 10 mg Tablet PO SCH (08:51)
[2019-03-18] MEDS: Docusate 100 MG CAP PO SCH ×2 (08:52→21:55)
[2019-03-18] MEDS: Famotidine 20 MG TAB PO SCH (08:52)
[2019-03-18] MEDS: Polyethylene Glycol 3350 17 GM Packet PO SCH (08:52)
[2019-03-18] MEDS: Oxazepam 10 MG CAP PO SCH ×3 (08:52→22:00)
[2019-03-18] MEDS: Folic Acid 1 MG TAB PO SCH (08:52)
[2019-03-18] MEDS: Metoprolol Tartrate 50 MG TAB PO SCH ×2 (08:52→21:55)
[2019-03-18] MEDS: Tamsulosin HCl 0.4 MG CAP PO SCH (08:53)
[2019-03-18] MEDS: Enoxaparin Sodium 30 MG/0.3 ML SYRINGE SC SCH (08:53)
[2019-03-18] MEDS ORDERED: Magnesium Citrate 300 ML BOT PO SCH (10:15)
--- NOTE | 2019-03-18 14:40 | PQF ---
CLINICAL DOCUMENTATION IMPROVEMENT CLARIFICATION FORM: ICD-10 Updated PLEASE DO AN ADDENDUM TO THE PROGRESS NOTE WITH ANY DOCUMENTATION UPDATES OR ADDITIONS AND CARRY THROUGH TO DC SUMMARY. THANK YOU. DATE: 03/18/2019; 03/19/2019 ATTN: Dr. Skinner Please exercise your independent, professional judgment in responding to the clarification form. Clinical indicators are provided on the bottom of this form for your review Please check appropriate box(s): HEART FAILURE: A. TYPE: [ x ] Systolic / HFrEF [ ] Diastolic / HFpEF [ ] Combined Systolic / Diastolic [ ] Other diagnosis [ ] Unable to determine In addition, please specify: Present on Admission (POA): [x ] Yes [ ] No [ ] Unable to determine For continuity of documentation, please document condition throughout progress notes and discharge summary. Thank You. CLINICAL INDICATORS - SIGNS / SYMPTOMS / LABS PN 03/15: BNP 653.3 Acute onset of atrial fibrillation, now rate controlled. Likely due to acute congestive heart failure exacerbation. PN 03/16: Resolved acute congestive heart failure. RISKS: H&P 03/12: PMH significant for essential hypertension, chronic liver disease. TREATMENT: Transfer to Telemetry 03/14 PN 03/15: Echo pending, has been completed. We will give the pt Lasix 20 mg IV bid x 1 day and follow up urinary output. Thank you, Cristy (This form is maintained as a part of the permanent medical record) 2014 [employer]. All Rights Reserved Cristy Teixeira RN, BSN [email or web address] Office: [phone] [facility]
[2019-03-18] MEDS: hydrALAZINE 20 MG/ML VIAL SLOW IVP PRN (16:22)
--- NOTE | 2019-03-18 20:02 | PRG ---
DATE OF SERVICE: 03/18/2019 SUBJECTIVE: The patient is postop day 6, status post exploratory laparotomy with colostomy takedown and colocolostomy. The patient reportedly had a bowel movement the day before yesterday, but has not had one since. He is passing gas and tolerating a diet. His pain is controlled. OBJECTIVE: VITAL SIGNS: Temperature is 98.4, heart rate 71, blood pressure 167/81, respirations 18, oxygen saturation 94% on room air. GENERAL: The patient is resting comfortably in bed. He is awake, alert, and appropriate. HEENT: Unremarkable. LUNGS: Clear to auscultation with good inspiratory and expiratory effort. HEART: Regular rate and rhythm. ABDOMEN: Soft, flat, nontender with active bowel sounds. EXTREMITIES: Neurovascularly intact x4. LABORATORY FINDINGS: Sodium 136, potassium 3.6, chloride 102, CO2 of 25, BUN 35, creatinine 1.94, glucose 113. LFTs are unremarkable. There are no radiographs reviewed this morning. ASSESSMENT AND PLAN: 1. Status post exploratory laparotomy with colostomy takedown and colocolostomy. 2. Resolved acute congestive heart failure. 3. Resolved acute onset of atrial fibrillation. 4. Acute kidney injury, improved. PLAN: Plan will be to continue his gentle IV hydration with Ringer lactate. We will recheck his labs in the morning. Encourage ambulation. The patient will also be given a bottle of magnesium citrate today. The evaluation and examination were done with Dr. Skinner, this morning during rounds. Job ID: [id number]
[2019-03-18] MEDS: cloNIDine 0.1 MG TAB PO SCH (21:55)
[2019-03-19 05:43] LABS: Anion Gap 12 mmol/L (10-20); BUN (Urea Nitrogen) 33 mg/dL (8.4-25.7); Calc. Creatinine Clearance 30 mL/min (70-130); Calcium 8.8 mg/dL (7.8-10.44); Carbon Dioxide 28 mmol/L (23-31); Chloride 99 mmol/L (98-107); Estimated GFR-MDRD 33; Glucose 135 mg/dL (80-115); Potassium 3.9 mmol/L (3.5-5.1); Sodium 135 mmol/L (136-145)
[2019-03-19] MEDS: Acetaminophen 500 MG TAB PO SCH ×2 (06:14→16:17)
[2019-03-19] MEDS: Famotidine 20 MG TAB PO SCH (09:15)
[2019-03-19] MEDS: Folic Acid 1 MG TAB PO SCH (09:15)
[2019-03-19] MEDS: Enoxaparin Sodium 30 MG/0.3 ML SYRINGE SC SCH (09:15)
[2019-03-19] MEDS: Docusate 100 MG CAP PO SCH (09:15)
[2019-03-19] MEDS: Escitalopram Oxalate 10 mg Tablet PO SCH (09:16)
[2019-03-19] MEDS: Metoprolol Tartrate 50 MG TAB PO SCH (09:16)
[2019-03-19] MEDS: Polyethylene Glycol 3350 17 GM Packet PO SCH (09:18)
[2019-03-19] MEDS: Tamsulosin HCl 0.4 MG CAP PO SCH (09:18)
[2019-03-19] MEDS: Oxazepam 10 MG CAP PO SCH ×2 (09:22→16:17)
[2019-03-19] MEDS: Lactated Ringer's 1,000 ML IV SCH (09:25)
[2019-03-19 15:53] VITALS: BP 158/73; TEMP 99
--- NOTE | 2019-03-20 04:45 | DIS ---
DATE OF ADMISSION: 03/12/2019 DATE OF DISCHARGE: 03/19/2019 ADMISSION DIAGNOSIS: One year status post complex traumatic rectal injury with loop transverse colostomy. CONSULTATIONS: None. PROCEDURES: Colostomy takedown with colocolostomy. SUMMARY: The patient is a 63-year-old man who is approximately one year status post a fall, in which he landed in the pelvic area, sustaining a complex rectal injury requiring a loop transverse colostomy. The patient has returned for reversal in which he underwent the above procedure. He tolerated this procedure well. The patient at the time of discharge was ambulatory. He was tolerating a diet. His bowel function had returned. His bowel function had returned. The patient will follow up with Dr. Skinner in 7 to 10 days or sooner as needed. The patient was also instructed to follow up with his primary care provider regarding his renal function and blood pressure medicines. The patient was also given strict return precautions regarding his abdominal surgery. Job ID: [id number]
== END 2019-03-19 16:53 | disposition home or self-care (01) | DRG 329 ==
LOC: SURG A 05:59 → 2NO 03-14 22:26 → SJJU 03-16 14:29
PROVIDERS: ADMIT Surgery; ATTEND Surgery
PROC: 0DBL0ZZ Excision of Transverse Colon, Open Approach (ICD-10-PCS; principal; 2019-03-12)
DX: Z43.3 Encounter for attention to colostomy (principal); I50.23 Acute on chronic systolic (congestive) heart failure; N17.9 Acute kidney failure, unspecified; I13.0 Hypertensive heart and chronic kidney disease with heart failure and stage 1 through stage 4 chronic kidney disease, or unspecified chronic kidney disease; M19.90 Unspecified osteoarthritis, unspecified site; K76.9 Liver disease, unspecified; E83.42 Hypomagnesemia; N18.9 Chronic kidney disease, unspecified; R31.9 Hematuria, unspecified; E87.6 Hypokalemia; I48.91 Unspecified atrial fibrillation; Z87.19 Personal history of other diseases of the digestive system; Z87.891 Personal history of nicotine dependence; Z79.82 Long term (current) use of aspirin; Z79.899 Other long term (current) drug therapy; K43.5 Parastomal hernia without obstruction or gangrene
CPT/HCPCS: 36415; 36416; 74019; 76770; 80048; 80053; 82570; 83735; 83880; 84100; 84300; 84484; 85007; 85025; 85027; 85610; 85730; 88304; 93005; 93010; 93306; 94640; J0131; J0360; J0670; J0694; J1100; J1650; J1885; J1940; J2001; J2250; J2270; J2405; J2704; J3010; J3475; J3480; J3490; J7050; J7070; J7120; J7620; S0028

== ENCOUNTER 2019-03-24 15:18 | Inpatient (IN) | payer MEDICARE ==
[2019-03-24 17:56] LABS: #Basophils 0.1 thou/uL (0.0-0.2); #Eosinphils 0.1 thou/uL (0.0-0.7); #Monocytes 1.2 thou/uL (0.11-0.59); #Neutrophils 12.4 thou/uL (1.40-6.50); %Basophils 0.5 % (0.0-1.0); %Eosinophils 0.8 % (0.0-10.0); %Lymphocytes 12.9 % (21.0-51.0); %Monocytes 7.6 % (0.0-10.0); %Neutrophils 78.3 % (42.0-75.0); Hemoglobin 13.4 g/dL (14.0-18.0); Mean Corpuscular HGB CONC 33.8 g/dL (32.0-36.0); Mean Corpuscular Volume 97.5 fL (78.0-98.0); Mean Platelet Volume 6.9 fL (7.4-10.4); Platelet Count 360 thou/uL (130-400); RBC Distribution Width 12.1 % (11.5-14.5); Red Blood Cell (RBC) Count 4.07 mill/uL (4.70-6.10); White Blood Cell (WBC) Count 15.9 thou/uL (4.8-10.8)
[2019-03-24 18:19] LABS: ALT (SGPT) 30 U/L (8-55); AST (SGOT) 46 U/L (5-34); Albumin 3.2 g/dL (3.4-4.8); Alkaline Phosphatase 165 U/L (40-150); Anion Gap 14 mmol/L (10-20); BUN (Urea Nitrogen) 31 mg/dL (8.4-25.7); Bilirubin, Total 0.7 mg/dL (0.2-1.2); Calc. Creatinine Clearance 0 mL/min (70-130); Calcium 9.3 mg/dL (7.8-10.44); Carbon Dioxide 27 mmol/L (23-31); Chloride 98 mmol/L (98-107); Estimated GFR-MDRD 24; Globulin 4.9 g/dL (2.4-3.5); Glucose 128 mg/dL (80-115); Potassium 3.4 mmol/L (3.5-5.1); Protein, Total 8.1 g/dL (5.8-8.1); Sodium 136 mmol/L (136-145)
--- NOTE | 2019-03-24 20:35 | CT ---
CT of abdomen and pelvis: 03/24/2019 COMPARISON: 06/01/2018 HISTORY: Abdominal pain, history of colon surgery 03/12/2019 TECHNIQUE: Axial CT imaging at 5 mm intervals from lung bases through pubic symphysis without contras t. Coronal reformatted imaging obtained. FINDINGS: Lack of contrast media limits assessment of the viscera, bowel, vascular structures, and fo r lymphadenopathy. Mild linear density in the right middle lobe suggests scarring and/or volume loss. Visualized lung ba ses grossly unremarkable otherwise. No free intraperitoneal air noted. Ventral midline cutaneous lacey are noted within the upper abdomen. There is new small volume free fluid adjacent to the right lobe of the liver anteriorly. Limited asse ssment of the liver demonstrates peripheral contour irregularity consistent with cirrhosis. Stable mild distention of the gallbladder area mobile calcified gallstone measuring 8 mm noted on image 31. The spleen, pancreas, and adrenal glands demonstrate no acute findings. Neither kidney appears obstructed. There is mild stranding of the presacral fat, improved when compared to the prior exam. There is new small volume free fluid within the pelvis. Small volume new free fluid noted in the right paracolic gutter. There is diverticulosis of the sigmoid colon with no evidence for diverticulitis. There is a colonic suture line in the anterior aspect of the mid left abdomen. There is mesenteric fa t stranding in this region. On image 35 of the axial images there are foci of gas lateral to the suture line which are not definitely confined by colonic wall and are thus suspicious for extralumina l gas. There is focal stranding of the mesenteric fat in this region and just inferior to this. No evidence for bowel obstruction is seen. There is extensive atherosclerotic calcification of the abdominal aorta and its branches, not well ch aracterized on this exam. Within the subcutaneous adipose tissue anteriorly, deep to the cutaneous lacey there is a lobulated nonspecific fluid collection, in total measuring approximately 7.8 cm in craniocaudal dimension, 5.6 cm in transverse dimension, and 1.8 cm in AP dimension. This could represent abscess, hematoma, o r seroma formation. Review of the osseous structures demonstrates no worrisome lytic or blastic bone lesion. There is deg enerative change involving the lumbar spine with multilevel disc space narrowing, vacuum disc formation, and facet hypertrophic change. IMPRESSION: Focal clustered foci of gas lateral to the colonic suture line within the mid left abdome n suspicious for extraluminal gas on the basis of anastomotic breakdown. Clinical correlation with postsurgical anatomy and timing of recent surgery required. Recommend surgical consultation. There is adjacent fat stranding within the mesentery. There is small volume free fluid within the abdomen/pelvis, which could be related to cirrhotic change of the liver and/or abnormality at the philly stomosis as detailed above. Lobulated fluid collection deep to the cutaneous lacey within the ventral subcutaneous adipose mandie hale Results called to Dr. Robins 8:30 PM 03/24/2019
[2019-03-24] MEDS ORDERED: Piperacillin/Tazobactam 3.375 GM VIAL ONE (21:08)
[2019-03-24] MEDS ORDERED: Ondansetron ODT 4 MG TAB PO PRN (22:18)
[2019-03-24] MEDS ORDERED: Ondansetron PF 4 MG/2 ML Vial IVP PRN (22:18)
[2019-03-24 23:11] VITALS: BMI 17.6
[2019-03-24] MEDS: Sodium Chloride 0.9% 1,000 ML IV SCH (23:28)
[2019-03-24] MEDS: Vancomycin HCl 500 MG in Sodium Chloride 0.9% 100 ML IVPB SCH (23:29)
--- NOTE | 2019-03-25 00:03 | HP ---
PRIMARY CARE PHYSICIAN: Dr. Ibarra. CODE STATUS: Full code. TIME OF EVALUATION: 9:30 p.m. CHIEF COMPLAINT: Drainage from surgical site. HISTORY OF PRESENT ILLNESS: A 63-year-old male patient with past medical history of hep C, hypertension, status post colostomy and colostomy reversal on March 12. The patient came to the hospital after having some redness surrounding the surgical skin especially in the upper part and also having some purulent drainage. The symptoms started over the past few days. No clear triggers. No alleviating factors. Dr. Skinner was called and he has recommended to place the patient on antibiotics and he will see the patient. Symptoms were reported as [id number]. REVIEW OF SYSTEMS: CONSTITUTIONAL: No fever, chills, or generalized weakness. RESPIRATORY: No cough, sputum production, or shortness of breath. CARDIOVASCULAR: No chest pain or palpitation. GASTROINTESTINAL: No nausea. No vomiting. No diarrhea. Some abdominal tenderness surrounding the surgical wound with some redness and some purulent drainage. MIXER OPERATOR RAW SALT: No dizziness, headache, or feeling lightheaded. GENITOURINARY: No burning on urination. EXTREMITIES: No leg swelling. All other systems were reviewed and negative except for the findings mentioned above. PAST MEDICAL HISTORY: As mentioned in the HPI. FAMILY HISTORY:Reviewed and non contributory to current presentation. PAST SURGICAL HISTORY: Colostomy, colostomy reversal. PSYCHIATRIC HISTORY: No previous psych history. SOCIAL HISTORY: The patient drinks socially. The patient uses marijuana, tobacco. Smokes cigarettes one-third packs per day since age 15. Lives with ex-. KNOWN ALLERGIES: No known drug allergies. REPORTED MEDICATIONS: Amlodipine. PHYSICAL EXAMINATION: VITAL SIGNS: On presentation; blood pressure 152/82 with heart rate 77, respiratory rate was 18, temperature 97.9, pain 6/10, oxygen saturation was 98% on room air. GENERAL APPEARANCE: The patient is alert, oriented, not in acute distress. HEENT: Eyes, normal conjunctivae. Moist oral mucosa. Anicteric. No JVD. RESPIRATORY: Bilateral air entry. No rales. No wheezes. Symmetric expansion. CARDIOVASCULAR: Normal rate, regular rhythm. No murmurs. No gallop. No edema. ABDOMEN: Soft. Normal bowel sounds. MUSCULOSKELETAL: Baseline range of motion and strength. No tenderness. SKIN: Warm, intact. No pallor. No rash. No redness except for the surrounding area of the surgical wound has some redness and has gotten worse over the past few days and some drainage discharged with some mild tenderness. Peripheral pulses are present. Capillary refill seems to be intact. NEURO: No evidence of any new focal weakness. Baseline speech. Cranial nerves seems to be intact. PSYCH: The patient is in good mood. No anxiety. Optimal judgment. IMAGING STUDIES: Abdomen and pelvis CT was done. The patient has focal cluster foci of gas lateral to the colonic sutured line within the mid left abdomen suspicious for extraluminal gas on the basis of anastomotic breakdown. Clinical correlation with postsurgical anatomy and timing of recent surgery required. Recommend Surgical consultation. There is adjacent fat stranding within the mesentery. There is small volume of free fluid within the abdomen and pelvis, which could be related to cirrhotic change of the liver and abnormality of the anastomosis as detailed above. Lobulated fluid collection deep to the cutaneous lacey with the ventral subcutaneous adipose layer. LABORATORY DATA: Labs were reviewed. The patient has a white count 15.9, hemoglobin 13.4, MCV 97.5, platelet count 360. Chemistry: Sodium 136; potassium 3.4; chloride 98; carbon dioxide 27; anion gap 14; BUN 31 with creatinine 2.7, previous creatinine was 2.0 and 1.9, so this is a chronic problem; GFR 24; glucose 128; calcium 9.3. Total bilirubin 0.7, AST 46, ALT 30, alkaline phosphatase 165. ASSESSMENT AND PLAN: The patient will be placed in the hospital with the following medical problems. 1. Leukocytosis 15.9, likely secondary to possible abscess surrounding the recent surgery. The patient will be started on antibiotics. Surgery is being consulted to follow recommendation of Dr. Skinner. As of now, the patient is stable. 2. Possible abscess in surgical wound. Treatment as above. 3. Hypokalemia, potassium 3.4, this is mild. We will replace as needed. 4. Chronic kidney disease stage 4. The patient has GFR of 24. We will hydrate and we will monitor kidney function. If not improving or getting worse, might need Nephrology evaluation for assistance with outpatient. 5. Hyperglycemia. No history of diabetes. This might be secondary to underlying infection. We will monitor. No need for any acute intervention at this point. 6. Deep venous thrombosis prophylaxis. 7. Uncontrolled hypertension, reconcile home medications. Blood pressure on presentation 157 systolic over 91 diastolic. We will not treat aggressively since the patient has high risk for sepsis. Job ID: [id number] LIEN
[2019-03-25] MEDS: Piperacillin/Tazobactam 2.25 GM in Sodium Chloride 0.9% 100 ML IVPB SCH ×5 (02:50→21:05)
[2019-03-25] MEDS ORDERED: hydrALAZINE 20 MG/ML VIAL SLOW IVP PRN (03:50)
[2019-03-25 06:13] LABS: #Basophils 0.1 thou/uL (0.0-0.2); #Eosinphils 0.2 thou/uL (0.0-0.7); #Lymphocytes 2.3 thou/uL (1.20-3.40); #Monocytes 1.1 thou/uL (0.11-0.59); #Neutrophils 9.4 thou/uL (1.40-6.50); %Basophils 0.7 % (0.0-1.0); %Eosinophils 1.8 % (0.0-10.0); %Lymphocytes 17.6 % (21.0-51.0); %Monocytes 8.5 % (0.0-10.0); %Neutrophils 71.3 % (42.0-75.0); Hemoglobin 11.5 g/dL (14.0-18.0); Mean Corpuscular HGB CONC 34.1 g/dL (32.0-36.0); Mean Corpuscular Volume 96.7 fL (78.0-98.0); Mean Platelet Volume 7.2 fL (7.4-10.4); Platelet Count 322 thou/uL (130-400); RBC Distribution Width 11.9 % (11.5-14.5); Red Blood Cell (RBC) Count 3.48 mill/uL (4.70-6.10); White Blood Cell (WBC) Count 13.1 thou/uL (4.8-10.8)
[2019-03-25 06:32] LABS: Anion Gap 12 mmol/L (10-20); BUN (Urea Nitrogen) 30 mg/dL (8.4-25.7); Calc. Creatinine Clearance 24 mL/min (70-130); Calcium 8.5 mg/dL (7.8-10.44); Carbon Dioxide 25 mmol/L (23-31); Estimated GFR-MDRD 27; Glucose 102 mg/dL (80-115)
[2019-03-25 06:43] LABS: Chloride 103 mmol/L (98-107); Sodium 137 mmol/L (136-145)
[2019-03-25 07:11] LABS: Magnesium 1.7 mg/dL (1.6-2.6); Phosphorus 4.3 mg/dL (2.3-4.7)
--- NOTE | 2019-03-25 07:32 | CON ---
DATE OF CONSULTATION: 03/25/2019 SURGEON: Nsah Skinner DO HISTORY OF PRESENT ILLNESS: The patient is a 63-year-old male, who presented to the emergency department yesterday evening complaining of abdominal pain and leaking from his midline abdominal wound. He had an ex-lap and colostomy takedown on March [address] Skinner. During that hospitalization, the patient was having bowel movements, tolerating a diet and pain was controlled at that time. However, the patient reported 2 days ago, he has noticed some leakage from his midline abdominal wound, which significantly increased yesterday. He denies fever or chills. Also reports decrease in appetite and nausea and vomiting yesterday. He continues to have bowel movements, however, he reports they are very small, painful, and difficult to pass. Did report hard dark stools. He continues to void without difficulty. REVIEW OF SYSTEMS: All additional review of systems negative except as indicated above. PAST MEDICAL HISTORY: Hepatitis C, hypertension, and paroxysmal atrial fibrillation. PAST SURGICAL HISTORY: Colostomy placement and colostomy takedown. SOCIAL HISTORY: The patient reports occasional alcohol use, tobacco use, and denies drug abuse. MEDICATIONS: 1. Tylenol. 2. Amlodipine. 3. Aspirin. 4. Clonidine. 5. Colace. 6. Lexapro. 7. Pepcid. 8. Folic acid. 9. Motrin. 10. DuoNeb. 11. Lisinopril. 12. Ranitidine. 13. Flomax. 14. Tramadol. ALLERGIES: NO KNOWN DRUG ALLERGIES. PHYSICAL EXAMINATION: VITAL SIGNS: Temperature 98.7, pulse 76, respirations 20, oxygen saturation 97% on room air, and blood pressure 174/85. GENERAL: A well-appearing thin older male, lying in bed with no signs of acute distress. CARDIAC: Regular rate and rhythm. No murmurs, gallops, or rubs. PULMONARY: Equal chest rise and fall. Clear breath sounds bilaterally. No signs of significant respiratory distress. GI: Abdomen is soft, mildly tender to palpation and nondistended. Midline abdominal surgical wound with lacey in place. Mildly erythematous border. There is some purulent discharge from the most inferior portion of the abdominal wound. No loculations or areas of induration noted on exam. EXTREMITIES: 2+ pulses in all extremities. No significant swelling noted. Gross motor and sensation intact in all extremities. NEURO: GCS is 15. Gross motor and sensation intact. Pupils are equal, round, and reactive to light bilaterally. LABORATORY FINDINGS: White count 13.1, hemoglobin 11.5, hematocrit 33.6, and platelets 322. Sodium 136, potassium 3.0, chloride 98, carbon dioxide 25, BUN 30, creatinine 2.46, and glucose 102. DIAGNOSTIC FINDINGS: CT of the abdomen and pelvis completed yesterday demonstrates focal clustered foci of gas lateral to the colonic suture line within the mid left abdominal suspicious for extraluminal gas on the basis of anastomosis breakdown. Clinical correlation with postsurgical anatomy and timing of recent surgery required, recommend surgical consultation. There is adjacent fat stranding within the mesentery. There is small volume of free fluid within the abdominal pelvis, which could be related to cirrhotic change of the liver and/or abnormality at the anastomosis as detailed above. Lobulated fluid collection deep to the cutaneous lacey within the ventral superficial adipose layer. ASSESSMENT: 1. Status post colostomy takedown on March 12. 2. Midline surgical site infection. 3. Concern for anastomotic breakdown of previous colostomy takedown. 4. Leukocytosis, improving. 5. Hypokalemia. PLAN: The patient is to remain n.p.o. and on IV fluids. We will continue vancomycin and Zosyn as well. We will discuss the patient with Dr. Skinner this morning for possible operative intervention. We will also replace potassium this morning. We will add on magnesium and phosphorus as well and replace those as indicated. The patient's pain is currently well controlled. The patient will be discussed with Dr. Skinner after this dictation. Job ID: [id number]
[2019-03-25] MEDS ORDERED: Magnesium 2 GM/50 ML 2 GM in Premix Bag 1 BAG IVPB SCH (07:45)
[2019-03-25] MEDS ORDERED: Bisacodyl 10 MG SUPP PR PRN (08:21)
[2019-03-25] MEDS: Potassium Chloride 20 MEQ/100 ML PREMIX BAG IVPB SCH ×2 (08:47→10:03)
[2019-03-25] MEDS: Enoxaparin Sodium 30 MG/0.3 ML SYRINGE SC SCH (08:52)
[2019-03-25] MEDS ORDERED: Vancomycin HCl 1 GM in Premix Bag 1 BAG IVPB SCH (09:00)
[2019-03-25] MEDS ORDERED: Enoxaparin Sodium 40 MG/0.4 ML SYRINGE SC SCH (09:00)
[2019-03-25] MEDS: Sodium Chloride 0.9% 1,000 ML IV SCH ×2 (10:02→23:29)
[2019-03-25] MEDS: Senokot S 8.6-50 MG TAB PO SCH ×2 (10:02→21:04)
[2019-03-25] MEDS: Polyethylene Glycol 3350 17 GM Packet PO SCH (10:02)
--- NOTE | 2019-03-25 12:41 | PRG ---
DATE OF SERVICE: 03/25/2019 SUBJECTIVE: Mr. Urban is a 63-year-old man, who is approximately 2 weeks status post exploratory laparotomy and colostomy takedown. The patient presented with purulent drainage from the incisional wound. CT scan of the abdomen and pelvis revealed subcutaneous fluid collection consistent with abscess. The patient has no fever or chills. This morning, he denies any abdominal pain. He is passing flatus. He did have a bowel movement. OBJECTIVE: VITAL SIGNS: Include blood pressure 174/85, pulse 79, respiratory rate is 20, temperature is 98.7 degrees Fahrenheit, oxygen saturations 97% on room air. HEART: Reveals regular rate and rhythm. LUNGS: Clear to auscultation bilaterally. Breathing, regular and nonlabored. ABDOMEN: Soft with incision which is intact for the most part except for purulent drainage around the umbilicus. Isidro removed and the wound was opened, draining copious amount of purulent fluid. Culture was taken. Wet-to-dry sterile gauze was applied. The patient tolerated the procedure without any apparent complication. We will continue with local wound care and IV antibiotics. There is no further surgical indication at this time. Job ID: [id number] [facility]
[2019-03-25] MEDS: Acetaminophen 325 MG TAB PO PRN (15:06)
[2019-03-25] MEDS: Sulfameth/Trimethoprim DS 800-160mg TAB PO SCH (21:04)
--- NOTE | 2019-03-25 22:04 | PDOC.PN ---
- Subjective Encounter Start Date: 03/25/19 Encounter Start Time: 14:15 Patient seen and examined for Sepsis. No fever/chills/N/V. Feels better. No new complaints. No overnight events - Objective Resuscitation Status - Order Detail: 03/24/19 22:18 Resuscitation Status Routine Resuscitation Status: FULL: Full Resuscitation MAR Reviewed: Yes Vital Signs & Weight: Vital Signs (12 hours) Temp Pulse Resp BP Pulse Ox 03/25/19 20:00 98.6 F 99 18 162/86 H 95 03/25/19 15:11 98.5 F 85 14 154/85 H 96 03/25/19 11:23 98.5 F 80 14 147/75 H 97 Weight Admit Weight 123 lb 6.4 oz Weight 123 lb 6.4 oz I&O: 03/24/19 03/25/19 03/26/19 06:59 06:59 06:59 Intake Total 2640 Output Total 500 600 Balance -500 2040 Result Diagrams: 03/26/19 07:22 03/26/19 07:22 Phys Exam - Physical Examination Constitutional: NAD Respiratory: no wheezing, no rhonchi Cardiovascular: RRR, no rub Gastrointestinal: soft, positive bowel sounds abd dressing + Musculoskeletal: no edema Neurological: non-focal, moves all 4 limbs Dx/Plan - Plan DVT proph w/SCDs IMPRESSION: Sepsis due to abd wall abscess BARBARA/CKD 3 Hypokalemia/Hypomagnesemia Moderate PEM Chronic Hep C HTN PLAN: Cont Atbx Gen surg input appreciated AM labs Avoid Nephrotoxic meds Replace electrolytes Review of Systems - Review of Systems Respiratory: negative: Cough, Dry, Shortness of Breath, Hemoptysis, SOB with Excertion, Pleuritic Pain, Sputum, Wheezing Cardiovascular: negative: chest pain, palpitations, orthopnea, paroxysmal nocturnal dyspnea, edema, light headedness, other - Medications/Allergies Allergies/Adverse Reactions: Allergies Allergy/AdvReac Type Severity Reaction Status Date / Time No Known Allergies Allergy Verified 03/24/19 23:48 Medications: Current Medications Acetaminophen (Tylenol) 650 mg PO Q4H PRN PRN Reason: Headache/Fever/Mild Pain (1-3) Last Admin: 03/25/19 15:06 Dose: 650 mg Bisacodyl (Dulcolax) 10 mg ND DAILYPRN PRN PRN Reason: Constipation Enoxaparin Sodium (Lovenox) 30 mg SC 0900 [facility] Last Admin: 03/25/19 08:52 Dose: 30 mg Hydralazine HCl (Apresoline) 10 mg SLOW IVP Q4H PRN PRN Reason: SBP > 160, DBP > 100 Last Admin: 03/25/19 03:59 Dose: 10 mg Sodium Chloride (Normal Saline 0.9%) 1,000 mls @ 100 mls/hr IV .Q10H [facility] Last Admin: 03/25/19 10:02 Dose: 1,000 mls Vancomycin HCl 500 mg/ Sodium (Chloride) 100 mls @ 100 mls/hr IVPB 2359 [facility] Last Admin: 03/24/19 23:29 Dose: 100 mls Piperacillin Sod/Tazobactam (Sod 2.25 gm/ Sodium Chloride) 100 mls @ 200 mls/ hr IVPB 0300,0900,1500,2100 [facility] Last Admin: 03/25/19 21:05 Dose: 100 mls Miscellaneous Medication (Pharmacy To Dose) 1 each IVPB ONE [facility] Stop: 04/23/19 23:31 Ondansetron HCl (Zofran Odt) 4 mg PO Q6H PRN PRN Reason: Nausea/Vomiting Ondansetron HCl (Zofran) 4 mg IVP Q6H PRN PRN Reason: Nausea/Vomiting Polyethylene Glycol (Miralax) 17 gm PO DAILY [facility] Last Admin: 03/25/19 10:02 Dose: 17 gm Senna/Docusate Sodium (Senokot S) 2 tab PO BID [facility] Last Admin: 03/25/19 21:04 Dose: Not Given Sodium Chloride (Flush - Normal Saline) 10 ml IVF Q12HR [facility] Last Admin: 03/25/19 21:05 Dose: Not Given Sodium Chloride (Flush - Normal Saline) 10 ml IVF PRN PRN PRN Reason: Saline Flush Trimethoprim/Sulfamethoxazole (Bactrim Ds) 1 tab PO BID [facility] Last Admin: 03/25/19 21:04 Dose: 1 tab
[2019-03-25] MEDS: Vancomycin HCl 500 MG in Sodium Chloride 0.9% 100 ML IVPB SCH (23:29)
[2019-03-26] MEDS: Piperacillin/Tazobactam 2.25 GM in Sodium Chloride 0.9% 100 ML IVPB SCH (02:34)
[2019-03-26] MEDS: Sodium Chloride 0.9% 1,000 ML IV SCH (03:30)
[2019-03-26] MEDS ORDERED: Potassium Chloride 40 MEQ in Premix Bag 1 BAG IVPB SCH (07:45)
[2019-03-26 08:18] LABS: #Basophils 0.1 thou/uL (0.0-0.2); #Eosinphils 0.2 thou/uL (0.0-0.7); #Lymphocytes 1.8 thou/uL (1.20-3.40); #Monocytes 0.9 thou/uL (0.11-0.59); #Neutrophils 8.2 thou/uL (1.40-6.50); %Basophils 0.7 % (0.0-1.0); %Eosinophils 1.7 % (0.0-10.0); %Monocytes 8.2 % (0.0-10.0); %Neutrophils 73.4 % (42.0-75.0); Hemoglobin 11.4 g/dL (14.0-18.0); Mean Corpuscular HGB CONC 34.6 g/dL (32.0-36.0); Mean Corpuscular Hemoglobin 33.4 pg (27.0-31.0); Mean Corpuscular Volume 96.5 fL (78.0-98.0); Platelet Count 319 thou/uL (130-400); Red Blood Cell (RBC) Count 3.42 mill/uL (4.70-6.10); White Blood Cell (WBC) Count 11.2 thou/uL (4.8-10.8)
[2019-03-26] MEDS: Escitalopram Oxalate 10 mg Tablet PO SCH (08:34)
[2019-03-26] MEDS: Tamsulosin HCl 0.4 MG CAP PO SCH (08:34)
[2019-03-26] MEDS: Enoxaparin Sodium 30 MG/0.3 ML SYRINGE SC SCH (08:34)
[2019-03-26] MEDS: Amlodipine 10 MG TAB PO SCH (08:34)
[2019-03-26] MEDS: Potassium Chloride 20 MEQ in Premix Bag 1 BAG IVPB SCH ×2 (08:34→10:55)
[2019-03-26] MEDS: Polyethylene Glycol 3350 17 GM Packet PO SCH (08:35)
[2019-03-26] MEDS: Senokot S 8.6-50 MG TAB PO SCH ×2 (08:35→21:04)
[2019-03-26] MEDS: Lisinopril 20 MG TAB PO SCH (08:35)
[2019-03-26] MEDS: Sulfameth/Trimethoprim DS 800-160mg TAB PO SCH ×2 (08:35→21:04)
[2019-03-26] MEDS: Folic Acid 1 MG TAB PO SCH (08:35)
[2019-03-26 08:38] LABS: Anion Gap 12 mmol/L (10-20); BUN (Urea Nitrogen) 25 mg/dL (8.4-25.7); Calc. Creatinine Clearance 23 mL/min (70-130); Calcium 8.1 mg/dL (7.8-10.44); Carbon Dioxide 23 mmol/L (23-31); Chloride 106 mmol/L (98-107); Estimated GFR-MDRD 25; Glucose 107 mg/dL (80-115); Magnesium 1.9 mg/dL (1.6-2.6); Potassium 3.3 mmol/L (3.5-5.1); Sodium 138 mmol/L (136-145)
[2019-03-26] MEDS ORDERED: Non-Formulary Item 1 EACH (Escitalopram Oxalate [Lexapro] 5 MG) PO SCH (09:00)
[2019-03-26 09:02] LABS: Phosphorus 3.8 mg/dL (2.3-4.7)
--- NOTE | 2019-03-26 10:06 | PDOC.EVN ---
Event Note - Event Note Event Note: Spoke to Dr Skinner. Dr Skinner will be primary attending. Will sign off.
[2019-03-26] MEDS ORDERED: Potassium Chloride 20 MEQ TAB PO SCH (11:15)
--- NOTE | 2019-03-26 12:37 | PRG ---
DATE OF SERVICE: 03/26/2019 SUBJECTIVE: Mr. Urban is a 63-year-old man who is postoperative day #14, status post exploratory laparotomy and colostomy takedown. He was readmitted 2 days previously with purulent drainage from the incisional wound. Wound infection was identified. The wound was opened and drained and cultures were positive for gram-positive cocci in pairs and clusters. The patient has had 2 bowel movements in the last 24 hours. PHYSICAL EXAMINATION: VITAL SIGNS: Currently includes blood pressure 171/84, pulse is 80, respiratory rate is 16, temperature is 98.2 degrees Fahrenheit, oxygen saturation 95% on room air. Urinary output has been adequate. HEART: Reveals regular rate and rhythm. No murmurs or gallops auscultated. LUNGS: Clear to auscultation bilaterally. Breathing regular and nonlabored. ABDOMEN: Soft, nontender, nondistended. The wound is clean. No active purulence present. Dressing was reapplied. NEUROLOGIC: Reveals no focal deficits present. LABORATORY FINDINGS: Today include a CBC with 11,200 white blood cells. Hemoglobin and hematocrit 11.4 and 33.0 respectively. The platelet count is 319,000. Metabolic profile: Sodium 138, potassium 3.3, chloride is 106, bicarb is 23, BUN 25, creatinine is elevated at 2.57, although this is slightly improved from 2.71 on 03/24/2019. Magnesium is 1.9, and phosphorus is 3.8. IMPRESSIONS: 1. Postoperative day number 14, status post exploratory laparotomy with colostomy takedown. 2. Recent abdominal wound infection controlled. 3. Cnhvq-ru-gmriagsy kidney injury. PLAN: 1. Continue with local wound care and oral antibiotic therapy. 2. We will ask Nephrology to evaluate the patient for this acute kidney injury as the patient was noted with elevated creatinine even prior to the recent abdominal operation. We will resume oral antihypertensives. Job ID: [id number]
[2019-03-26] MEDS ORDERED: Sodium Chloride 0.9% 1,000 ML IV SCH (16:30)
--- NOTE | 2019-03-26 16:40 | PQF ---
SHAMAR MENCHACA JOSY DAY [id number] [facility] A- 3333 [id number] CLINICAL DOCUMENTATION IMPROVEMENT CLARIFICATION FORM: ICD-10 Updated PLEASE DO AN ADDENDUM TO THE PROGRESS NOTE WITH ANY DOCUMENTATION UPDATES OR ADDITIONS AND CARRY THROUGH TO DC SUMMARY. THANK YOU. DATE: 03/26/2019 ATTN:DR. Fabi DRISCOLL Please exercise your independent, professional judgment in responding to the clarification form. Clinical indicators are provided on the bottom of this form for your review. Please check appropriate box(s): Conflicting documentation was noted in the Medical Record, please clarify if patient is being treated/monitored for: [ x ] CKD 3 (diagnosis #1) [ ] CKD 4 (diagnosis #2) [ ] Other diagnosis [ ] Unable to determine In addition, please specify: Present on Admission (POA): [ x] Yes [ ] No [ ] Unable to determine For continuity of documentation, please document condition throughout progress notes and discharge summary. Thank You. CLINICAL INDICATORS - SIGNS / SYMPTOMS/ LABS 03/24 H & P (LORI) ASSESSMENT AND PLAN: 4). CHRONIC KIDNEY DISEASE STAGE 4. THE PATIENT HAS A GFR OF 24. WE WILL HYDRATE AND MONITOR KIDNEY FUNCTION. IF NOT IMPROVING OR GETTING WORSE, MIGHT NEED NEPHROLOGY EVALUATION FOR ASSISTANCE WITH OUTPATIENT. 03/25 PN (LAMAR) DX/ PLAN: BARBARA/CKD 3 CREATININE (03/24) 2.71 (03/25) 2.46 (03/26) 2.57 RISK: HX OF HTN TREATMENTS SERIAL LABS IV FLUIDS (03/24- PRESENT) THANK YOU! PEREZ (This form is maintained as a part of the permanent medical record) 2014 [employer]. All Rights Reserved [email or web address] [phone] MTDD
--- NOTE | 2019-03-26 16:58 | PQF ---
SHAMAR MENCHACA JOSY DAY [id number] [facility] A- 3333 [id number] CLINICAL DOCUMENTATION IMPROVEMENT CLARIFICATION FORM: ICD-10 Updated PLEASE DO AN ADDENDUM TO THE PROGRESS NOTE WITH ANY DOCUMENTATION UPDATES OR ADDITIONS AND CARRY THROUGH TO DC SUMMARY. THANK YOU. DATE: 03/26/19 ATTN: DR. Fabi DRISCOLL Please exercise your independent, professional judgment in responding to the clarification form. Clinical indicators are provided on the bottom of this form for your review. Please check appropriate box(es): [ ] Sepsis due to: (Pna, UTI, gangrenous gall bladder, etc.) [ x ] Localized infection without sepsis [ ] Other diagnosis [ ] Unable to determine In addition, please specify: Present on Admission (POA): [x ] Yes [ ] No [ ] Unable to determine For continuity of documentation, please document condition throughout progress notes and discharge summary. Thank You. CLINICAL INDICATORS - SIGNS / SYMPTOMS / LABS 03/24 H & P (GUALBERTO) ASSESSMENT AND PLAN: 2). POSSIBLE ABSCESS IN SURGICAL WOUND 03/24 WBC 15.9 13.1 11.2 03/25 CONSULT (LEXI) ASSESSMENT: 2). MIDLINE SURGICAL SITE INFECTION. 03/25 PN (ALMAR) DX/PLAN: SEPSIS DUE TO ABD WALL ABSCESS 03/26 PN (YAMILA) IMPRESSION: 2) RECENT ABDOMINAL WOUND INFECTION. RISK: RECENT COLOSTOMY REVERSAL/ ABD SX ( 03/12/2019) CURRENT TOBACCO ABUSE TREATMENTS VANC IV ( 03/24-PRESENT) ZOSYN IV (03/25 - PRESENT) THANK YOU! PEREZ (This form is maintained as a part of the permanent medical record) 2014 [employer] All Rights Reserved [email or web address] [phone] LIEN
--- NOTE | 2019-03-26 17:12 | PQF ---
SHAMAR MENCHACAE GAGEJulianoDILSHADJOSY [id number] SURG A- 3333 [id number] CLINICAL DOCUMENTATION IMPROVEMENT CLARIFICATION FORM: ICD-10 Updated PLEASE DO AN ADDENDUM TO THE PROGRESS NOTE WITH ANY DOCUMENTATION UPDATES OR ADDITIONS AND CARRY THROUGH TO DC SUMMARY. THANK YOU. Date: 03/26/19 ATTN: DR. Fabi DRISCOLL Please exercise your independent, professional judgment in responding to the clarification form. Clinical indicators are provided on the bottom of this form for your review. Please check appropriate box(s): [ x ] Protein Calorie Malnutrition: [ ] Mild [ x ] Moderate [ ] Severe [ ] Cachexia [ ] Other diagnosis [ ] Unable to determine In addition, please specify: Present on Admission (POA): [x ] Yes [ ] No [ ] Unable to determine CLINICAL INDICATORS - SIGNS / SYMPTOMS / LABS BMI 17.6- PER DIETARY CONSULT 03/25/19 DIETARY CONSULT: MALNUTRITION W/ 17.7% DECREASE IN WEIGHT IN ONE MONTH PER PT REPORT. VISIBLE MUSCLE WASTING OF THE TEMPORAL REGION, VISIBLE FAT AND MUSCLE WASTING OF ARMS AND CLAVICLE REGION. RISK: RECENT ABDOMINAL SX (03/12/19) TOBACCO/ DRUG USE TREATMENT: DIETARY CONSULT RECOMMEND ENSURE ENLIVE TID Moderate Malnutrition (in acute illness) Energy Intake: <75% of estimated energy requirement for > 7 days Weight Loss: 1-2%/1 week; 5%/ 1 month; 7.5%/3 months Other: mild body fat loss; mild muscle mass loss; mild fluid accumulation; Severe Malnutrition (in acute illness) Energy Intake: < 50% of estimated energy requirement for > 5 days Weight Loss: >1-2%/1 week; >5%/1 month; >7.5%/3 months Other: moderate body fat loss; moderate muscle mass loss; moderate- severe fluid accumulation; measurably reduced mower operator strength Moderate Malnutrition (in chronic illness) Energy Intake: <75% of estimated energy requirement for >1 month Weight Loss: 5%/1 month; 7.5%/3 months; 10%/6 months; 20%/1 year Other: mild body fat loss; mild muscle mass loss; mild fluid accumulation Severe Malnutrition (in chronic illness) Energy Intake: <75% of estimated energy requirement for >1 month Weight Loss: >5%/1 month; >7.5%/3 months; >10%/6 months; >20%/1 year Other: severe body fat loss; severe muscle mass loss; severe fluid accumulation ; measurably reduced mower operator strength THANK YOU ! PEREZ (This form is maintained as a part of the permanent medical record) 2014 [employer]. All Rights Reserved [email or web address] [phone] MTDD
[2019-03-26] MEDS ORDERED: Famotidine 20 MG TAB PO SCH (21:00)
[2019-03-26] MEDS ORDERED: Non-Formulary Item 1 EACH (Ranitidine Hcl [Ranitidine Hcl] 150 MG) PO SCH (21:00)
[2019-03-26] MEDS: Famotidine 20 MG TAB PO SCH (21:03)
[2019-03-26] MEDS: cloNIDine 0.1 MG TAB PO SCH (21:03)
--- NOTE | 2019-03-26 22:04 | CON ---
DATE OF CONSULTATION: CONSULTING PHYSICIAN: Palma Pineda MD REASON FOR CONSULTATION: Acute on chronic kidney disease. IMPRESSION: Acute on chronic kidney disease. This is likely cytokine mediated injury compounded by hemodynamics in the context of poor p.o. intake. PLAN: 1. Gentle rehydration. 2. Renal supportive measures. 3. Renally dose all medications. 4. Avoid potentially nephrotoxic agents. 5. Further management to be dependent on the clinical course. HISTORY: History is that of 63-year-old gentleman presented here with abdominal pain and leaking from his midline abdominal wound. The patient recently had exploratory laparotomy and colostomy in the beginning of this month. The patient on presentation was noted with a creatinine of up to 2.7, which has stayed around that range thus the need for renal consultation. The patient does have a baseline creatinine of about 1.6-1.7. The patient denies any use of any known potential nephrotoxic agents. MEDICATIONS: Reviewed as documented on [employer]. PAST MEDICAL HISTORY: Significant for hepatitis C, hypertension, paroxysmal atrial fibrillation, and status post colostomy. SOCIAL HISTORY: No illicit drug use and no alcohol or tobacco. REVIEW OF SYSTEMS: As documented in the body of history. All other systems were not to be significantly related to present illness. PHYSICAL EXAMINATION: GENERAL: The patient was found to be cachectic. VITAL SIGNS: Noted with the following vital signs; afebrile, temperature 99, pulse 82, respiratory rate of 14, O2 saturation 97% with blood pressure of 163/78. HEENT: Unremarkable. Moist oral mucosa. NECK: Supple. No conjunctival injection or icterus. CARDIOVASCULAR SYSTEM: First and second heart sounds were heard. RESPIRATORY SYSTEM: Clear to auscultation. DIGESTIVE: Revealed a benign abdomen with positive bowel sounds. EXTREMITIES: No peripheral edema. SKIN: No new gross rash. LYMPHATICS: No peripheral lymphadenopathy. In summary, this is a 63-year-old gentleman who presented with leakage around the wound site and with poor p.o. intake, presents due to worsening kidney function above his baseline creatinine level. Thank you for this consultation. We will follow with you. Job ID: [id number] MTDD
[2019-03-27 06:37] LABS: Anion Gap 10 mmol/L (10-20); BUN (Urea Nitrogen) 23 mg/dL (8.4-25.7); Calc. Creatinine Clearance 22 mL/min (70-130); Carbon Dioxide 21 mmol/L (23-31); Chloride 108 mmol/L (98-107); Estimated GFR-MDRD 24; Glucose 96 mg/dL (80-115); Magnesium 1.6 mg/dL (1.6-2.6); Phosphorus 3.8 mg/dL (2.3-4.7); Potassium 3.1 mmol/L (3.5-5.1); Sodium 136 mmol/L (136-145)
[2019-03-27 06:45] LABS: Hemoglobin 10.8 g/dL (14.0-18.0); Mean Corpuscular HGB CONC 34.4 g/dL (32.0-36.0); Mean Corpuscular Hemoglobin 33.3 pg (27.0-31.0); Mean Corpuscular Volume 96.7 fL (78.0-98.0); Platelet Count 297 thou/uL (130-400); Red Blood Cell (RBC) Count 3.24 mill/uL (4.70-6.10); White Blood Cell (WBC) Count 9.9 thou/uL (4.8-10.8)
[2019-03-27] MEDS ORDERED: Potassium Chloride 20 MEQ TAB PO SCH (08:45)
[2019-03-27 08:53] LABS: Band 1 % (5-11); Eosinophils 2 % (0-10); Lymphocytes 22 % (21-51); MDiff Complete? YES; Monocytes 7 % (0-10); Myelocyte 1 % (0-0); Neutrophil 64 % (42-75); Platelet Morphology Comment Appears Adequate; Polychromasia SLIGHT = 2-3 cells (100X) (0-2/hpf)
[2019-03-27] MEDS: Folic Acid 1 MG TAB PO SCH (09:12)
[2019-03-27] MEDS: Tamsulosin HCl 0.4 MG CAP PO SCH (09:12)
[2019-03-27] MEDS: Amlodipine 10 MG TAB PO SCH (09:12)
[2019-03-27] MEDS: Clindamycin 150 MG CAP PO SCH ×2 (09:12→17:02)
[2019-03-27] MEDS: Senokot S 8.6-50 MG TAB PO SCH ×2 (09:12→20:15)
[2019-03-27] MEDS: Polyethylene Glycol 3350 17 GM Packet PO SCH (09:12)
[2019-03-27] MEDS: Enoxaparin Sodium 30 MG/0.3 ML SYRINGE SC SCH (09:12)
[2019-03-27] MEDS: Escitalopram Oxalate 10 mg Tablet PO SCH (09:13)
[2019-03-27] MEDS: Lisinopril 20 MG TAB PO SCH (09:13)
--- NOTE | 2019-03-27 10:31 | PRG ---
DATE OF SERVICE: 03/27/2019 SUBJECTIVE: The patient is seen and examined with no new complaint noted with the following vital signs. OBJECTIVE: VITAL SIGNS: Afebrile. Temperature 98.8, pulse 63, respiratory rate of 16, O2 saturation 97% with blood pressure 150/80. HEENT: Unremarkable. Moist oral mucosa. NECK: Supple. No conjunctival injection or icterus. CARDIOVASCULAR: First and second heart sounds were heard. RESPIRATORY: Clear to auscultation. DIGESTIVE: Revealed a benign abdomen with positive bowel sounds. EXTREMITIES: No peripheral edema. SKIN: No new gross rash. LYMPHATICS: No peripheral lymphadenopathy. DIAGNOSTIC DATA: Laboratory investigation showed a potassium of 3.1, creatinine 2.66. IMPRESSION: 1. Acute kidney injury. 2. Hypokalemia. 3. Metabolic acidosis. PLAN: 1. Discontinue IV fluids after current bag. 2. Replete potassium. 3. Discontinue Bactrim as this will also be elevating the creatinine, especially in this patient that the organism is actually resistant to Bactrim. In place of Bactrim, start this patient on clindamycin. 4. If the creatinine does not improve, we will consider changing lisinopril with different class of antihypertensive medications. 5. Further management will be dependent on the clinical course. Job ID: [id number]
--- NOTE | 2019-03-27 18:53 | PRG ---
DATE OF SERVICE: 03/27/2019 SUBJECTIVE: This is a 63-year-old gentleman, who is postop day #15 status post exploratory laparotomy and colostomy takedown. The patient was readmitted 3 days ago with purulent drainage from his incisional wound. Wound infection was identified, and the wound was opened and drained, and cultures were obtained and positive for gram, positive cocci in pairs and clusters. The patient had no overnight events and reports that his pain is well controlled at this time. The patient is receiving Ensure 3 times a day and the patient is tolerating his diet. The patient ate 100% of his breakfast and lunch today. Dr. Skinner did evaluate the patient today and visualized his abdominal wound. OBJECTIVE: VITAL SIGNS: Temperature 98.8, pulse 63, SpO2 of 97% on room air, respirations 16, and blood pressure 150/80. GENERAL: The patient is awake and alert, in no distress. HEART: Regular rate and rhythm. No pedal edema. No murmurs. LUNGS: Clear bilateral, breathing is regular and nonlabored. ABDOMEN: Soft, slightly tender, and nondistended. The patient's dressing clean, dry, and intact without any drainage noted through the dressing. NEUROLOGIC: No focal deficits. LABORATORY DATA: WBC 9.9, RBC 3.24, hemoglobin 10.8. Potassium 3.1, chloride 108, CO2 of 21, BUN 23, creatinine 2.66, estimated GFR 24, glucose 96, calcium 8.0, phosphorus 3.8, and magnesium 1.6. ASSESSMENT: 1. Postop day #15, status post exploratory laparotomy with colostomy takedown. 2. Recent abdominal wound infection. 3. Acute on subacute kidney infection. 4. Continue wound care twice a day and antibiotic treatment. The patient was evaluated by Nephrology, who recommends continuing IV fluids through current bag, and then discontinuing IV fluids, replace potassium, discontinue Bactrim as this may be elevating the patient's creatinine. We will start the patient on clindamycin IV. Also, the creatinine does not improve. We will consider changing lisinopril with a different class of antihypertensive medication. We will continue comfort measures. The patient has a correction screen placed as the patient has no one to help him with his twice a day wound changes and also states that he is unable to do it himself due to inability to use his hands and fingers. Job ID: [id number]
[2019-03-27] MEDS: Famotidine 20 MG TAB PO SCH (20:14)
[2019-03-27] MEDS: cloNIDine 0.1 MG TAB PO SCH (20:14)
[2019-03-28] MEDS: Clindamycin 150 MG CAP PO SCH ×4 (00:45→23:50)
[2019-03-28] MEDS: Acetaminophen 325 MG TAB PO PRN ×2 (08:02→23:53)
[2019-03-28] MEDS: Escitalopram Oxalate 10 mg Tablet PO SCH (08:02)
[2019-03-28] MEDS: Enoxaparin Sodium 30 MG/0.3 ML SYRINGE SC SCH (08:02)
[2019-03-28] MEDS: Tamsulosin HCl 0.4 MG CAP PO SCH (08:03)
[2019-03-28] MEDS: Polyethylene Glycol 3350 17 GM Packet PO SCH (08:03)
[2019-03-28] MEDS: Folic Acid 1 MG TAB PO SCH (08:03)
[2019-03-28] MEDS: Amlodipine 10 MG TAB PO SCH (08:03)
[2019-03-28] MEDS: Lisinopril 20 MG TAB PO SCH (08:03)
[2019-03-28] MEDS: Senokot S 8.6-50 MG TAB PO SCH ×2 (08:04→20:43)
[2019-03-28 10:21] LABS: Anion Gap 10 mmol/L (10-20); BUN (Urea Nitrogen) 23 mg/dL (8.4-25.7); Calc. Creatinine Clearance 21 mL/min (70-130); Calcium 8.5 mg/dL (7.8-10.44); Carbon Dioxide 24 mmol/L (23-31); Chloride 107 mmol/L (98-107); Estimated GFR-MDRD 23; Glucose 117 mg/dL (80-115); Magnesium 1.3 mg/dL (1.6-2.6); Phosphorus 4.5 mg/dL (2.3-4.7); Potassium 3.5 mmol/L (3.5-5.1); Sodium 137 mmol/L (136-145)
[2019-03-28] MEDS ORDERED: Iopamidol 370 76% 50 ML VIAL FS ONE (11:10)
[2019-03-28] MEDS ORDERED: Potassium Chloride 20 MEQ in Premix Bag 1 BAG IVPB SCH ×2 (12:00→12:15)
--- NOTE | 2019-03-28 12:10 | CT ---
CT ABDOMEN AND PELVIS WITHOUT IV CONTRAST: Multiple axial tomograms obtained through the abdomen and pelvis without IV enhancement. Rectal cont rast was administered. INDICATION: The patient is status post end-to-end anastomosis of the transverse colon with takedown of colostomy. CT from 03/24/2019 questioned confined anastomotic leak in the left mid abdomen with tiny gas pocket s which appeared to be extraluminal. COMPARISON: Comparison is made to the exam of 03/24/2019. FINDINGS: Lung bases appear clear with tiny right effusion. Images through the abdomen and pelvis show low-volume ascites. Fluid is seen around the liver and sp josue with fluid down the colonic gutters and into the lower abdomen and pelvis. Liver, spleen, and pancreas otherwise unremarkable. Kidneys unremarkable with no hydronephrosis. Small bowel loops normal caliber. There is colonic opacification from the rectal contrast. At the anastomotic site in the left mid abdomen, there is a diverticulum arising from the colon along its anterior border which measures up to 2 cm. Contrast is seen within this diverticulum and there are tiny gas pockets within this apparent diverticulum. Considerations include an existing diverticu lum and a confined anastomotic leak which has walled off. There has been no significant change in th e appearance of this outpocketing from the colonic wall when compared to 03/24/2019. There is no extr avasation into the peritoneal cavity. There is some surrounding inflammatory haziness; however, this collection of fluid, gas, and contrast does appear confined and walled off. In the mesenteric fat just inferior to this diverticulum is an area of density which measures 2.0 cm. This does not appear to represent fluid or abscess. It is unchanged in appearance from 03/24/2019. This may represent some inflammatory change within the mesentery. No other significant finding or interval change. IMPRESSION: 1. There is a walled off collection of fluid, gas, and contrast along the colonic wall in the left m id abdomen at the anastomotic site which is unchanged in appearance from the 03/24/2019 exam. An appa rent diverticulum is present either result of a confined anastomotic leak or a previously exiting div erticulum which has enlarged. Findings were discussed Dr. Skinner. 2. The fluid collection in the subcutaneous tissues in the mid abdomen on the prior exam is no longe r present and there is a midline open incision now noted. 3. Low volume ascites is seen throughout the abdomen as described. CODE CR POS: OFF
[2019-03-28] MEDS ORDERED: Magnesium 2 GM/50 ML 2 GM in Premix Bag 1 BAG IVPB SCH (12:15)
[2019-03-28] MEDS ORDERED: Potassium Chloride 20 MEQ TAB PO SCH (13:30)
--- NOTE | 2019-03-28 14:11 | PRG ---
DATE OF SERVICE: 03/28/2019 SUBJECTIVE: The patient is seen and examined with no new complaints. He came to my understanding today. The patient does have intermittent hematuria, which has been going on for the past couple of months. Otherwise, noted with the following vital signs. OBJECTIVE: VITAL SIGNS: Afebrile, temperature 98.1, pulse 62, respiratory rate of 16, O2 saturations are 99% with a blood pressure 124/66. HEENT: Unremarkable. CARDIOVASCULAR SYSTEM: First and second heart sounds were heard. RESPIRATORY SYSTEM: Clear to auscultation. DIGESTIVE SYSTEM: Revealed a benign abdomen. EXTREMITIES: No peripheral edema. SKIN: No new gross rash. LYMPHATICS: No peripheral lymphadenopathy. LABORATORY INVESTIGATION: Showed a creatinine of 2.81 with BUN of 23, potassium 3.5, and magnesium 1.3. IMPRESSION: 1. Acute on chronic kidney disease with creatinine rising today, query cause. 2. Mild hypomagnesemia. 3. Intermittent hematuria, query cause. PLAN: 1. Replete magnesium and potassium. 2. Renal ultrasound to evaluate the structural integrity of the kidneys. 3. Hold lisinopril and monitor the hemodynamics. If the blood pressure increases, we will start this patient on a different class of antihypertensive medications. 4. Renally dose all medications for low GFR and avoid potentially nephrotoxic agents. 5. Further management will be dependent on the clinical course. Job ID: [id number]
--- NOTE | 2019-03-28 15:10 | ULT ---
RENAL ULTRASOUND: HISTORY: Acute kidney insufficiency. FINDINGS: Both kidneys measure approximately 12 cm in length. There is increased cortical echogenicity seen bi laterally consistent with chronic medical renal disease. No hydronephrosis. The urinary bladder is mildly distended and unremarkable. There is evidence of free ascites. IMPRESSION: Increased cortical echogenicity consistent with chronic medical renal disease. POS: OFF
--- NOTE | 2019-03-28 18:25 | PRG ---
DATE OF SERVICE: 03/28/2019 SUBJECTIVE: This is a 63-year-old gentleman, who is postop day #16 status post exploratory laparotomy and colostomy takedown. The patient was re-admitted for wound infection. The patient had no overnight event and reports that his pain continues to be well controlled at this time. The patient reports that he has a good appetite. The patient has been up walking without any difficulty. The patient reports he had a bowel movement today and denies any complaints at this time. No fevers reported. OBJECTIVE: VITAL SIGNS: Temperature 98.1, pulse 62, respirations 16, SpO2 of 99% on room air, and blood pressure 124/66. GENERAL: The patient is awake, alert, in no distress. HEART: Regular rate and rhythm. No pedal edema, no murmurs. LUNGS: Breathing is regular and nonlabored, equal bilateral. No wheezing, rales, or rhonchi. ABDOMEN: Soft, slightly tender, nondistended. The patient's dressing is clean, dry, and intact. NEUROLOGIC: No focal deficits. LABORATORY DATA: Sodium 137, potassium 3.5, chloride 107, BUN 23, creatinine 2.81, estimated GFR 23, glucose 117, calcium 8.5, phosphorus 4.1, and magnesium 1.3. DIAGNOSTICS: CT abdomen and pelvis, there was a lot of collection of fluid, gas, and contrast along the colonic wall and the left mid abdomen at the anastomotic site, which is unchanged in appearance from 03/24/2019 exam. Low-volume ascites is seen throughout the abdomen. Renal ultrasound, impression, increased cortical echogenicity consistent with chronic medical renal disease. IMPRESSION: 1. Postop day #16 status post exploratory laparotomy with colostomy takedown. 2. Recent abdominal wound infection. 3. Acute kidney injury. PLAN: We will continue wound care twice a day and IV antibiotic treatment. We will have Nephrology continue to follow the patient. We will replace the patient's electrolytes. We will repeat labs tomorrow. We will continue comfort measures. The patient is pending senior living rehab. The plan was discussed with the attending physician, who agrees. Job ID: [id number]
[2019-03-28 18:50] LABS: Bilirubin Negative (Negative); Blood, Urine Large (Negative); Clarity CLEAR (Clear); Glucose, Urine (Dipstick) Negative (Negative); Leukocyte Negative (Negative); Nitrite Negative (Negative); Protein, Urine (Dipstick) 100 mg/dL (Neg-Trace); Urobilinogen 0.2 mg/dL (0.2-1.0); pH, Urine 5.5 (5.0-9.0)
[2019-03-28 18:51] LABS: Bacteria/HPF None Seen HPF (None Seen); Hyaline Casts/LPF 0-3 HYALINE CAST LPF (0-3 Hyaline); RBC/HPF GREATER THAN 50-TNTC HPF (0-3); Squamous Epithelial None Seen HPF (0-3)
[2019-03-28] MEDS: Famotidine 20 MG TAB PO SCH (20:43)
[2019-03-28] MEDS: cloNIDine 0.1 MG TAB PO SCH (20:43)
[2019-03-29 05:13] LABS: Phosphorus 4.3 mg/dL (2.3-4.7)
[2019-03-29 05:17] LABS: Anion Gap 12 mmol/L (10-20); BUN (Urea Nitrogen) 28 mg/dL (8.4-25.7); Calc. Creatinine Clearance 21 mL/min (70-130); Calcium 8.5 mg/dL (7.8-10.44); Carbon Dioxide 21 mmol/L (23-31); Chloride 108 mmol/L (98-107); Estimated GFR-MDRD 23; Glucose 98 mg/dL (80-115); Magnesium 1.8 mg/dL (1.6-2.6); Potassium 4.1 mmol/L (3.5-5.1); Sodium 137 mmol/L (136-145)
[2019-03-29] MEDS ORDERED: Magnesium 2 GM/50 ML 2 GM in Premix Bag 1 BAG IVPB SCH (08:30)
[2019-03-29] MEDS: Enoxaparin Sodium 30 MG/0.3 ML SYRINGE SC SCH (08:58)
[2019-03-29] MEDS: Tamsulosin HCl 0.4 MG CAP PO SCH (08:59)
[2019-03-29] MEDS: Folic Acid 1 MG TAB PO SCH (08:59)
[2019-03-29] MEDS: Escitalopram Oxalate 10 mg Tablet PO SCH (08:59)
[2019-03-29] MEDS: Clindamycin 150 MG CAP PO SCH ×3 (08:59→23:45)
[2019-03-29] MEDS: Amlodipine 10 MG TAB PO SCH (08:59)
[2019-03-29] MEDS: Polyethylene Glycol 3350 17 GM Packet PO SCH (09:00)
[2019-03-29] MEDS: Senokot S 8.6-50 MG TAB PO SCH ×2 (09:00→20:06)
--- NOTE | 2019-03-29 14:31 | PRG ---
DATE OF SERVICE: 03/29/2019 SUBJECTIVE: The patient was seen this morning, lying in bed with no signs of acute distress. Reports walking around earlier in the morning without any difficulty. He is tolerating a regular diet. Pain is well controlled. Currently, tolerating antibiotics. Denies nausea, vomiting, or diarrhea. Denies fever or chills as well. OBJECTIVE: VITAL SIGNS: Temperature 98.1, pulse 62, respirations 16, oxygen saturation 98% on room air, blood pressure 168/78. GENERAL: A frail male, lying in bed, with no signs of acute distress. PULMONARY: Equal chest rise and fall. Clear breath sounds bilateral. No signs of acute respiratory distress. CARDIAC: Regular rate and rhythm. No murmurs, gallops, or rubs. GI: Abdomen is soft, nontender, nondistended. Midline abdominal dressing is clean, dry, and intact with b.i.d. dressing changes. NEUROLOGIC: GCS is 15. Gross motor and sensation are intact. EXTREMITIES: 2+ pulses in all extremities. LABORATORY FINDINGS: Sodium 137, potassium 4.1, chloride 108, carbon dioxide 21, BUN 28, creatinine 2.82, glucose 98, phosphorous 4.3, magnesium 1.8. DIAGNOSTIC FINDINGS: Renal ultrasound completed yesterday demonstrates increased cortical echogenicity consistent with chronic medical renal disease. ASSESSMENT: 1. Status post exploratory laparotomy with colostomy takedown, now postop day #17. 2. Midline surgical site infection, improving. 3. Clxbl-gh-dhvjmet kidney injury. 4. History of hepatitis C and hypertension. PLAN: We will continue with current b.i.d. dressing changes. Continue medications. We will hold lisinopril as recommended by Nephrology. Nephrology continues to work up the patient's kidney injury. We will also continue normal saline at 75 an hour per the recommendations of Nephrology. Continue Ensure b.i.d. as the patient has very poor nutrition. The patient is pending placement at a [facility] facility for assistance with wound care. The patient was seen and evaluated by myself and discussed with Dr. Skinner this morning after rounds. Job ID: [id number]
--- NOTE | 2019-03-29 18:12 | PRG ---
DATE OF SERVICE: 03/29/2019 SUBJECTIVE: The patient is seen and examined with no new complaints. Noted with the following vital signs. OBJECTIVE: VITAL SIGNS: Afebrile, temperature 98.9, pulse 81, respiratory rate of 16, O2 saturations are 99% with blood pressure 145/75. HEENT: Unremarkable. Moist oral mucosa. NECK: Supple. No conjunctival injection or icterus. CARDIOVASCULAR SYSTEM: First and second heart sounds were heard. RESPIRATORY SYSTEM: Clear to auscultation. DIGESTIVE SYSTEM: Revealed a benign abdomen. Positive bowel sounds. EXTREMITIES: No peripheral edema. SKIN: No new gross rash. LYMPHATICS: No peripheral lymphadenopathy. Renal ultrasound showed evidence of cortical echogenicity consistent with chronic kidney disease. LABORATORY INVESTIGATION: Showed creatinine still at 2.82 with bicarb of 21. IMPRESSION: 1. Chronic kidney disease stage 3. 2. Hypertension. 3. Recurrent hematuria, query cause. PLAN: 1. Given the chronicity of this renal problem, we will go ahead and get autoimmune panel. 2. Discontinue IV fluid. 3. Renally dose all medications. 4. Further management will be dependent on the clinical course. Job ID: [id number]
[2019-03-29] MEDS: cloNIDine 0.1 MG TAB PO SCH (20:04)
[2019-03-29] MEDS: Famotidine 20 MG TAB PO SCH (20:06)
[2019-03-30 06:20] LABS: Anion Gap 11 mmol/L (10-20); BUN (Urea Nitrogen) 30 mg/dL (8.4-25.7); Calc. Creatinine Clearance 23 mL/min (70-130); Calcium 8.6 mg/dL (7.8-10.44); Carbon Dioxide 22 mmol/L (23-31); Chloride 108 mmol/L (98-107); Estimated GFR-MDRD 26; Glucose 99 mg/dL (80-115); Magnesium 1.7 mg/dL (1.6-2.6); Phosphorus 4.8 mg/dL (2.3-4.7); Potassium 4.3 mmol/L (3.5-5.1); Sodium 137 mmol/L (136-145)
[2019-03-30] MEDS ORDERED: Magnesium 2 GM/50 ML 2 GM in Premix Bag 1 BAG IVPB SCH (07:45)
[2019-03-30] MEDS: Enoxaparin Sodium 30 MG/0.3 ML SYRINGE SC SCH (08:54)
[2019-03-30] MEDS: Tamsulosin HCl 0.4 MG CAP PO SCH (08:54)
[2019-03-30] MEDS: Clindamycin 150 MG CAP PO SCH ×3 (08:54→23:52)
[2019-03-30] MEDS: Amlodipine 10 MG TAB PO SCH (08:54)
[2019-03-30] MEDS: Folic Acid 1 MG TAB PO SCH (08:55)
[2019-03-30] MEDS: Escitalopram Oxalate 10 mg Tablet PO SCH (08:55)
[2019-03-30] MEDS: Acetaminophen 325 MG TAB PO PRN (08:55)
[2019-03-30] MEDS: Senokot S 8.6-50 MG TAB PO SCH ×2 (08:56→19:58)
[2019-03-30] MEDS: Polyethylene Glycol 3350 17 GM Packet PO SCH (08:56)
[2019-03-30] MEDS: hydrALAZINE 25 MG TAB PO SCH ×2 (09:58→19:57)
[2019-03-30] MEDS: Saccharomyces boulardii 250 MG CAP PO SCH (09:58)
--- NOTE | 2019-03-30 14:12 | PRG ---
DATE OF SERVICE: 03/30/2019 SUBJECTIVE: The patient was seen this morning lying in bed. He has been able to get up and go to the bathroom by himself. He reports he is still having some pain around the incision site, but otherwise is feeling well. The patient is tolerating his diet. Voiding and stooling well. OBJECTIVE: VITAL SIGNS: Temperature 98.2, pulse 70, blood pressure 167/87, respirations 16, O2 97% on room air. GENERAL: This is a cachectic-appearing male in no acute distress. PULMONARY: Bilaterally clear breath sounds to auscultation. No sign of acute respiratory distress. Equal chest rise and fall. CARDIAC: Regular rate and rhythm. No murmurs, rubs, or gallops. GI: Abdomen is soft, nontender, and nondistended. Midline abdominal dressing is clean, dry and intact. Minimal amount of fluid seen draining from the wound. NEUROLOGIC: GCS 15. Gross motor is intact. EXTREMITIES: 2+ pulses in all extremities. Cap refill less than 2 seconds. LABORATORY FINDINGS: White blood cells 9.9, hemoglobin 10.8, hematocrit 31.3, platelets 297. Chemistry: Sodium 137, potassium 4.3, chloride 108, carbon dioxide 22, BUN is 30, creatinine is 2.54, magnesium is 1.7, phosphorus is 4.8. DIAGNOSTIC FINDINGS: There are no new diagnostic findings to report. ASSESSMENT AND PLAN: 1. Status post exploratory laparotomy with colostomy takedown postop day 18. 2. Midline surgical site infection due to methicillin-resistant Staphylococcus aureus, improving. 3. Jwzwi-to-[id number] kidney injury. 4. History of hepatitis C. 5. Hypertension. 6. Chronic kidney disease stage 3. 7. Recurrent hematuria, query cause. PLAN: The patient will continue with b.i.d. dressing changes on his abdominal wound. We will continue to hold the patient's lisinopril, discontinue IV fluids and an autoimmune panel is pending per Nephrology's recommendations. The patient will continue Ensure b.i.d. as he has poor nutrition status. The patient is pending placement in a half-way facility for assistance with wound care. The patient was placed on p.o. hydralazine for his hypertension. He will need to have 3 more days of clindamycin. The patient was seen and evaluated by Dr. Skinner during morning rounds. Job ID: [id number]
[2019-03-30] MEDS: Famotidine 20 MG TAB PO SCH (19:58)
[2019-03-30] MEDS: cloNIDine 0.1 MG TAB PO SCH (19:58)
--- NOTE | 2019-03-30 21:30 | PRG ---
DATE OF SERVICE: 03/30/2019 SUBJECTIVE: The patient is seen and examined with no new complaint. Hemodynamically stable. OBJECTIVE: VITAL SIGNS: Blood pressure of 160/87, pulse 70, respiratory rate of 16, O2 saturations are 97%. HEENT: Unremarkable. CARDIOVASCULAR: First and second heart sounds were heard. RESPIRATORY: Clear to auscultation. DIGESTIVE: Revealed a benign abdomen. EXTREMITIES: No peripheral edema. SKIN: No new gross rash. LABORATORY INVESTIGATION: Showed a creatinine of 2.54, BUN of 30. IMPRESSION: 1. Chronic kidney disease, advanced, stage 3/4. 2. Hematuria, varicose. PLAN: 1. We will continue with current renal supportive measures. 2. We will follow up on the autoimmune panel given the chronic hematuria and chronic kidney disease in this patient. 3. Further management will be dependent on the clinical course. Job ID: [id number]
[2019-03-31 06:37] LABS: Anion Gap 11 mmol/L (10-20); BUN (Urea Nitrogen) 35 mg/dL (8.4-25.7); Calc. Creatinine Clearance 25 mL/min (70-130); Calcium 8.7 mg/dL (7.8-10.44); Carbon Dioxide 20 mmol/L (23-31); Chloride 108 mmol/L (98-107); Estimated GFR-MDRD 28; Glucose 97 mg/dL (80-115); Magnesium 1.8 mg/dL (1.6-2.6); Phosphorus 5.1 mg/dL (2.3-4.7); Potassium 4.3 mmol/L (3.5-5.1); Sodium 135 mmol/L (136-145)
[2019-03-31] MEDS: Escitalopram Oxalate 10 mg Tablet PO SCH (08:17)
[2019-03-31] MEDS: Clindamycin 150 MG CAP PO SCH ×3 (08:17→23:47)
[2019-03-31] MEDS: Folic Acid 1 MG TAB PO SCH (08:17)
[2019-03-31] MEDS: Tamsulosin HCl 0.4 MG CAP PO SCH (08:17)
[2019-03-31] MEDS: Enoxaparin Sodium 30 MG/0.3 ML SYRINGE SC SCH (08:17)
[2019-03-31] MEDS: Amlodipine 10 MG TAB PO SCH (08:17)
[2019-03-31] MEDS: Saccharomyces boulardii 250 MG CAP PO SCH (08:17)
[2019-03-31] MEDS: hydrALAZINE 25 MG TAB PO SCH ×2 (08:18→20:23)
[2019-03-31] MEDS: Senokot S 8.6-50 MG TAB PO SCH ×2 (08:28→20:24)
[2019-03-31] MEDS: Polyethylene Glycol 3350 17 GM Packet PO SCH (08:28)
[2019-03-31 11:14] LABS: Antinuclear AB Negative (Negative); Complement-C3 (Sendout) 119 mg/dL (82-167); Complement-C4 (Sendout) 26 mg/dL (14-44); DSDNA Autoabs (FARR) Sendout 9 IU/mL (0-9); Smooth Muscle Total Antibodies <0.2 AI (0.0-0.9); Thyroid Peroxidase Ab-Sendout 12 IU/mL (0-34); U1 RNP/snRNP IgG Autoabs <0.2 AI (0.0-0.9)
--- NOTE | 2019-03-31 13:49 | PRG ---
DATE OF SERVICE: 03/31/2019 SUBJECTIVE: The patient was seen this morning, sitting up in bed. He states his pain is well controlled. He was able to help with dressing changes this morning. The patient is tolerating his diet. He is voiding and stooling well. He is able to ambulate to the bathroom by himself. OBJECTIVE: VITAL SIGNS: Temperature 98.2, pulse 72, blood pressure 150/84, respirations 18, 100% oxygen on room air. GENERAL: This is a cachectic-appearing male, in no acute distress. PULMONARY: Bilaterally clear breath sounds to auscultation. No signs of acute respiratory distress. Equal chest rise and fall. CARDIAC: Regular rate and rhythm. No murmurs, rubs, or gallops. GI: Abdomen is soft, nontender, and nondistended. Midline abdominal dressing is clean and intact. Granulation tissue is seen at the base of his wound. A wet dressing is applied directly over the wound, covered by a dry dressing. There were no erythema around the margins of the wound. NEUROLOGIC: GCS 15. Gross motor and sensory are intact. EXTREMITIES: 2+ pulses in all extremities. Cap refill less than 2 seconds. No gross edema. LABORATORY FINDINGS: Sodium 135, chloride 108, carbon dioxide 20, BUN 35, creatinine 2.39, phosphorus 5.1, magnesium 1.8. Rheumatoid factor less than 10. JARED negative. SSA IgG antibody less than 0.2. SSB/La IgG antibody less than 0.2. Anti-PM/scleroderma antibody less than 0.2. Double-stranded DNA antibody is 9 or equivocal. Anti-U1 [facility]/sn [facility] IgG less than 0.2, smooth muscle antibody less than 0.2. Thyroid peroxidase antibody 12, complement C3 of 119, complement C4 of 26. DIAGNOSTIC FINDINGS: There are no new diagnostic findings to report. ASSESSMENT: 1. Status post exploratory laparotomy with colostomy takedown postop day 19. 2. Midline surgical site infection due to methicillin-resistant Staphylococcus aureus, improving. 3. Acute on chronic kidney injury. 4. Chronic kidney disease, stage 3. 5. History of hepatitis C. 6. Hypertension. 7. Recurrent hematuria. PLAN: The patient will continue with b.i.d. dressing changes on his abdominal wound. We will have the patient to do his own dressing changes evening to see if he will be able to do by himself at home. We will continue to hold the patient's lisinopril. The patient will continue Ensure b.i.d. for his poor nutrition status. We will plan to send the patient home if he is able to manage his own wound care. We will assess the patient's ability tonight and possibly discharge him tomorrow. We will continue the patient on p.o. hydralazine for his hypertension. He will need 2 more days of clindamycin. The patient was seen and evaluated by Dr. Skinner during morning rounds. Discussed the plan with the patient and family who are in agreement. Job ID: [id number]
[2019-03-31] MEDS: cloNIDine 0.1 MG TAB PO SCH (20:23)
[2019-03-31] MEDS: Famotidine 20 MG TAB PO SCH (20:23)
--- NOTE | 2019-03-31 20:40 | PRG ---
DATE OF SERVICE: 03/31/2019 SUBJECTIVE: The patient is seen and examined with no new complaint noted. OBJECTIVE: VITAL SIGNS: Afebrile, temperature 98.7 respiratory rate 16, O2 saturation of 97%, and blood pressure 140/77. HEENT: Unremarkable. CARDIOVASCULAR: First and second heart sounds were heard. RESPIRATORY: Clear to auscultation. DIGESTIVE: Benign abdomen. EXTREMITIES: No peripheral edema. SKIN: No new gross rash. LYMPHATICS: No peripheral lymphadenopathy. IMPRESSION: 1. Acute on chronic kidney disease, which seems to have pretty much resolved, back to baseline. 2. Chronic kidney disease stage 3/4. PLAN: 1. Outpatient nephrology followup strongly recommended. 2. Further management will be dependent on the clinical course. Job ID: [id number]
[2019-04-01] MEDS: Clindamycin 150 MG CAP PO SCH (08:15)
[2019-04-01] MEDS: Saccharomyces boulardii 250 MG CAP PO SCH (08:15)
[2019-04-01] MEDS: Folic Acid 1 MG TAB PO SCH (08:15)
[2019-04-01] MEDS: Amlodipine 10 MG TAB PO SCH (08:15)
[2019-04-01] MEDS: Tamsulosin HCl 0.4 MG CAP PO SCH (08:16)
[2019-04-01] MEDS: Escitalopram Oxalate 10 mg Tablet PO SCH (08:16)
[2019-04-01] MEDS: hydrALAZINE 25 MG TAB PO SCH (08:16)
[2019-04-01] MEDS: Enoxaparin Sodium 30 MG/0.3 ML SYRINGE SC SCH (08:17)
[2019-04-01] MEDS: Polyethylene Glycol 3350 17 GM Packet PO SCH (09:38)
[2019-04-01] MEDS: Senokot S 8.6-50 MG TAB PO SCH (09:38)
[2019-04-01 11:38] VITALS: BP 168/78; TEMP 98.4
--- NOTE | 2019-04-02 03:45 | DIS ---
DATE OF ADMISSION: 03/24/2019 DATE OF DISCHARGE: 04/01/2019 RESIDENT: Mayda Mane MD. ADMITTING ATTENDING: Nash Skinner DO. DISCHARGE ATTENDING: Nash Skinner DO CONSULT: 1. General Surgery, Dr. Skinner. 2. Nephrology, Dr. Waldrop, 03/26/2019. PROCEDURES: 1. Abdomen and pelvis CT, 03/24/2019, impression; focal clustered foci of gas lateral to the colonic suture line within the mid left abdomen suspicious for extraluminal gas on the basis of anastomotic breakdown. There is adjacent fat stranding within the mesentery. There is a small volume of free fluid within the abdomen and pelvis which could be related to cirrhotic change of liver and/or abnormality at the anastomosis as detailed above. Lobulated fluid collection deep to the cutaneous lacey within the ventral subcutaneous adipose layer. 2. Abdomen and pelvis CT, 03/28/2019, impression; there is a walled-off collection of fluid, gas, and contrast along the colonic wall in the left mid abdomen which is unchanged in appearance in the 03/24/2019 exam. The fluid collection in the subcutaneous tissues in the mid abdomen on the prior exam is no longer present and there is midline open incision now noted. Low volume ascites is seen throughout the abdomen. 3. Renal ultrasound on 03/28/2019, impression; increased cortical echogenicity consistent with chronic medical renal disease. PRIMARY DIAGNOSES: 1. Midline surgical site infection due to MRSA, improving. 2. Status post exploratory laparotomy with colostomy takedown. 3. Acute kidney injury on chronic kidney disease 3. 4. Chronic kidney disease 3-4. SECONDARY DIAGNOSES: 1. History of hep C. 2. Hypertension. 3. Recurrent hematuria. DISCHARGE MEDICATIONS: 1. Amlodipine 10 mg p.o. daily. 2. Clonidine 0.1 mg p.o. at bedtime. 3. Lexapro 5 mg p.o. daily. 4. Folvite 1 mg p.o. daily. 5. DuoNeb 3 mL neb t.i.d. p.r.n. 6. Tamsulosin 0.4 mg p.o. daily. 7. Tylenol 650 mg p.o. q.4 hours p.r.n. for pain or fever. 8. Alpha lipoic acid 200 mg p.o. daily. 9. Aspirin 325 mg p.o. p.r.n. for pain. 10. Clindamycin 300 mg p.o. q.8 hours for 1 day. 11. Docusate 100 mg p.o. b.i.d. 12. Famotidine 20 mg p.o. at bedtime. 13. Hydralazine 25 mg p.o. b.i.d. 14. Tramadol 100 mg p.o. q.6 hours. DISCONTINUED MEDICATIONS: 1. Lisinopril. 2. Ibuprofen. HISTORY OF PRESENT ILLNESS/HOSPITAL COURSE: This is a 63-year-old white male, who presented to the ER complaining of abdominal pain and leaking from his midline abdominal wound. He had an ex lap and colostomy takedown on 03/12, by Dr. Skinner. During that hospitalization, the patient is having bowel movements. Tolerating a diet and pain was controlled. However, the patient reported 2 days prior to admission, he had noted some leakage from his midline abdominal wound which had significantly increased the day prior to admission. He denied fever or chills. He also reported a decrease in appetite as well as nausea and vomiting. He continued to have bowel movements, however, he reported they were very small and painful and difficult to pass. He does report hard dark stools. He continued to void without difficulty. The patient was admitted. He was found to have an abscess in the soft tissue of his abdomen. The wound was opened at bedside and cultured and grew back MRSA. The patient was started on clindamycin and the incision was allowed to heal by secondary intention. The patient has been getting twice daily dressing changes. The patient's pain was well controlled and the wound looked to be improving during his stay. The patient is tolerating diet as well as voiding and stooling well. The patient was confident and capable to do his own dressing changes at home. The patient was found to have BARBARA on CKD 3. Nephrology was consulted, which came and saw the patient. The patient also is having hematuria. An autoimmune panel was drawn. The patient will follow up with Nephrology outpatient. DISPOSITION: Stable. DISCHARGE INSTRUCTIONS: 1. Location: Home. 2. Diet: Regular diet with Ensure b.i.d. 3. Activity: As tolerated. 4. Follow up with Dr. Skinner on 04/07 at 2:10 pm. 5. Follow up with primary care provider, Dr. Ibarra within 1 week. Follow up with Dr. Waldrop in 4-6 weeks. Please call him to make and confirm an appointment. Job ID: [id number] [id number]
== END 2019-04-01 12:27 | disposition home or self-care (01) | DRG 863 ==
LOC: ERS 15:18 → SURG A 21:05
PROVIDERS: ADMIT Surgery; ATTEND Surgery
DX: T81.49XA Infection following a procedure, other surgical site, initial encounter (principal); E44.0 Moderate protein-calorie malnutrition; E87.2 Acidosis; Z68.1 Body mass index [BMI] 19.9 or less, adult; N17.9 Acute kidney failure, unspecified; E87.6 Hypokalemia; B19.20 Unspecified viral hepatitis C without hepatic coma; I48.0 Paroxysmal atrial fibrillation; I12.9 Hypertensive chronic kidney disease with stage 1 through stage 4 chronic kidney disease, or unspecified chronic kidney disease; N18.3 Chronic kidney disease, stage 3 (moderate); Z93.3 Colostomy status; E83.42 Hypomagnesemia; R31.9 Hematuria, unspecified; B95.62 Methicillin resistant Staphylococcus aureus infection as the cause of diseases classified elsewhere; R73.9 Hyperglycemia, unspecified; F17.210 Nicotine dependence, cigarettes, uncomplicated
CPT/HCPCS: 36415; 36416; 74176; 76770; 80048; 80053; 81001; 83735; 84100; 85007; 85025; 85027; 86160; 86225; 86235; 86376; 87070; 87077; 87186; 87205; 94640; 96365; J0360; J1650; J2543; J3370; J3475; J3480; J3490; J7620; Q9967

== ENCOUNTER 2019-04-14 13:41 | Outpatient (CLI) | payer MEDICARE ==
--- NOTE | 2019-04-14 15:16 | CT ---
CT pulmonary lung scan without IV contrast INDICATION: Lung cancer screening protocol; 40+ pack years of smoking; current smokernicotine depende nce COMPARISON: None FINDINGS: LUNGS: Nodules\mass: No suspicious nodule demonstrated. Emphysema: [id number] Additional findings: There are moderate calcifications involving the thoracic aorta and coronary rahul godwin. Mediastinum: No lymphadenopathy. Upper abdomen: There is a gallstone within the gallbladder. Adrenal glands are normal appearing. Osseous structures: There is scattered degenerative and osteoarthritic change present. No acute fract ure or subluxation demonstrated.. IMPRESSION: Lung-RADS Category 1: Negative- Continue annual screening with LDCT in 12 months. Category S: Moderate atherosclerotic calcification of the thoracic aorta and coronary arteries. Mili lithiasis. Category C: Not applicable.
== END 2019-04-14 13:42 | disposition home or self-care (01) ==
LOC: CT 13:41
PROVIDERS: ATTEND Family Medicine
DX: F17.210 Nicotine dependence, cigarettes, uncomplicated (principal); I25.10 Atherosclerotic heart disease of native coronary artery without angina pectoris; I70.0 Atherosclerosis of aorta; K80.20 Calculus of gallbladder without cholecystitis without obstruction
CPT/HCPCS: G0297

== ENCOUNTER 2022-05-18 21:19 | Inpatient (IN) | payer MEDICARE, OTHER ==
[2022-05-18 21:45] LABS: #Lymphocytes 0.6 thou/uL (1.20-3.40); #Monocytes 0.7 thou/uL (0.11-0.59); #Neutrophils 4.3 thou/uL (1.40-6.50); %Basophils 0.2 % (0.0-1.0); %Eosinophils 0.1 % (0.0-10.0); %Lymphocytes 11.3 % (21.0-51.0); %Monocytes 11.6 % (0.0-10.0); %Neutrophils 76.8 % (42.0-75.0); Hemoglobin 15.9 g/dL (14.0-18.0); Mean Corpuscular HGB CONC 34.1 g/dL (32.0-36.0); Mean Corpuscular Hemoglobin 33.2 pg (27.0-31.0); Mean Corpuscular Volume 97.4 fL (78.0-98.0); Platelet Count 102 thou/uL (130-400); RBC Distribution Width 11.5 % (11.5-14.5); White Blood Cell (WBC) Count 5.6 thou/uL (4.8-10.8)
[2022-05-18 21:54] LABS: ALT (SGPT) 44 U/L (8-55); AST (SGOT) 67 U/L (5-34); Albumin 3.7 g/dL (3.4-4.8); Alkaline Phosphatase 68 U/L (40-110); Anion Gap 13 mmol/L (10-20); BUN (Urea Nitrogen) 14 mg/dL (8.4-25.7); Bilirubin, Total 0.6 mg/dL (0.2-1.2); Calc. Creatinine Clearance 0 mL/min (70-130); Calcium 9.2 mg/dL (7.8-10.44); Carbon Dioxide 23 mmol/L (23-31); Chloride 104 mmol/L (98-107); Estimated GFR 79; Globulin 3.6 g/dL (2.4-3.5); Glucose 142 mg/dL (80-115); Potassium 3.8 mmol/L (3.5-5.1); Protein, Total 7.3 g/dL (5.8-8.1); Sodium 136 mmol/L (136-145)
[2022-05-18 22:05] LABS: Platelet Morphology Comment Appears Decreased; RBC Morphology Normal
[2022-05-18] MEDS ORDERED: cefTRIAXone\\ROCEPHIN 2 GM VIAL ONE (22:23)
[2022-05-18 22:29] LABS: Bacteria/HPF None Seen HPF (None Seen); Bilirubin Negative (Negative); Blood, Urine 3+ (Negative); Clarity Clear (Clear); Glucose, Urine (Dipstick) Normal (Negative); Ketone, Urine Negative (Negative); Leukocyte Negative Leu/uL (Negative); Nitrite Negative (Negative); Protein, Urine (Dipstick) 50 mg/dL (Neg-Trace); RBC/HPF Greater than 50 HPF (0-3); Specific Gravity, Urine 1.018 (1.002-1.036); Squamous Epithelial None Seen HPF (0-3); Urobilinogen Normal mg/dL (Less than 2); WBC/HPF 0-3 HPF (0-3); pH, Urine 5.5 (5.0-9.0)
[2022-05-18 22:35] LABS: Yeast-Budding 2+ HPF (None Seen)
[2022-05-18] MEDS ORDERED: Acetaminophen 325 MG TAB ONE (22:35)
[2022-05-18] MEDS ORDERED: Labetalol HCl 100 MG/20 ML VIAL ONE (22:35)
[2022-05-19 00:45] LABS: SARS-CoV-2 NAA Rapid Test DETECTED (NotDetected)
[2022-05-19] MEDS ORDERED: Ondansetron ODT 4 MG TAB SL PRN (01:45)
[2022-05-19] MEDS ORDERED: Ondansetron PF 4 MG/2 ML Vial IVP PRN (01:45)
[2022-05-19] MEDS: Sodium Chloride 0.9% 1,000 ML IV SCH ×2 (02:00→11:19)
[2022-05-19] MEDS ORDERED: Acetaminophen 650 MG Suppository PR PRN ×2 (05:59→06:49)
[2022-05-19] MEDS ORDERED: Acetaminophen 325 MG TAB PO PRN ×2 (05:59→06:49)
[2022-05-19] MEDS ORDERED: Enoxaparin Sodium 40 MG/0.4 ML SYRINGE SC SCH (06:00)
[2022-05-19] MEDS ORDERED: Albuterol 200 PUFF (6.7GM INHALER) INH PRN (06:49)
[2022-05-19] MEDS ORDERED: Albuterol Sulfate 2.5 mg/3 ml Neb NEB PRN (06:53)
[2022-05-19 07:01] LABS: Hemoglobin 14.6 g/dL (14.0-18.0); Lymphocytes 40 % (21-51); MDiff Complete? YES; Macrocytosis SLIGHT = 6-15 cells (100X) (0-5/hpf); Mean Corpuscular HGB CONC 33.9 g/dL (32.0-36.0); Mean Corpuscular Hemoglobin 33.3 pg (27.0-31.0); Mean Corpuscular Volume 98.2 fL (78.0-98.0); Mean Platelet Volume 9.4 fL (7.4-10.4); Monocytes 12 % (0-10); Neutrophil 48 % (42-75); Ovalocytes SLIGHT = 2-5 cells (100X) (0-1/hpf); Platelet Count 92 thou/uL (130-400); Platelet Morphology Comment Appears Decreased; RBC Distribution Width 11.6 % (11.5-14.5); Red Blood Cell (RBC) Count 4.38 mill/uL (4.70-6.10); White Blood Cell (WBC) Count 6.6 thou/uL (4.8-10.8)
[2022-05-19 07:07] LABS: Anion Gap 14 mmol/L (10-20); BUN (Urea Nitrogen) 12 mg/dL (8.4-25.7); Calc. Creatinine Clearance 68 mL/min (70-130); Calcium 8.2 mg/dL (7.8-10.44); Carbon Dioxide 19 mmol/L (23-31); Chloride 108 mmol/L (98-107); Estimated GFR 96; Glucose 107 mg/dL (80-115); Potassium 3.7 mmol/L (3.5-5.1); Sodium 137 mmol/L (136-145)
[2022-05-19] MEDS: Ascorbic Acid 500 mg Chewable Tablet PO SCH (10:00)
[2022-05-19] MEDS: Zinc Sulfate 220 MG CAP PO SCH (10:01)
[2022-05-19] MEDS: Cholecalciferol (Vitamin D3) 400 UNITS TAB PO SCH (10:02)
[2022-05-19] MEDS: hydrALAZINE 20 MG/ML VIAL SLOW IVP PRN ×2 (14:47→21:38)
[2022-05-19] MEDS: Benzonatate 100 MG CAP PO PRN (21:38)
[2022-05-20 04:35] LABS: #Eosinphils 0.1 thou/uL (0.0-0.7); #Lymphocytes 1.8 thou/uL (1.20-3.40); #Monocytes 0.7 thou/uL (0.11-0.59); #Neutrophils 3.1 thou/uL (1.40-6.50); %Basophils 0.3 % (0.0-1.0); %Lymphocytes 31.5 % (21.0-51.0); %Monocytes 12.1 % (0.0-10.0); %Neutrophils 55.1 % (42.0-75.0); Mean Corpuscular Hemoglobin 33.2 pg (27.0-31.0); Mean Corpuscular Volume 97.8 fL (78.0-98.0); Platelet Count 88 thou/uL (130-400); RBC Distribution Width 11.6 % (11.5-14.5); Red Blood Cell (RBC) Count 4.52 mill/uL (4.70-6.10); White Blood Cell (WBC) Count 5.7 thou/uL (4.8-10.8)
[2022-05-20 04:59] LABS: ALT (SGPT) 34 U/L (8-55); AST (SGOT) 67 U/L (5-34); Albumin 3.2 g/dL (3.4-4.8); Alkaline Phosphatase 56 U/L (40-110); Anion Gap 11 mmol/L (10-20); BUN (Urea Nitrogen) 9 mg/dL (8.4-25.7); Bilirubin, Total 0.5 mg/dL (0.2-1.2); Calc. Creatinine Clearance 78 mL/min (70-130); Calcium 8.5 mg/dL (7.8-10.44); Carbon Dioxide 23 mmol/L (23-31); Chloride 104 mmol/L (98-107); Estimated GFR 100; Globulin 3.1 g/dL (2.4-3.5); Glucose 91 mg/dL (80-115); Potassium 3.1 mmol/L (3.5-5.1); Protein, Total 6.3 g/dL (5.8-8.1); Sodium 135 mmol/L (136-145)
[2022-05-20] MEDS ORDERED: Metoprolol Tartrate 5 MG/5 ML VIAL IVP SCH (05:00)
[2022-05-20 05:15] LABS: HBCM Index 0.11 S/CO (0-0.79); HBSAg Index 0.25 S/CO (0-0.99); Hep A IgM AB Non-Reactive (NonReactive); Hep A IgM S/CO 0.32 S/CO (0-0.79); Hep B Surf Ag Non-Reactive S/CO (NonReactive); Hepatitis B Core IgM Abs Non-Reactive (NonReactive); Magnesium 1.9 mg/dL (1.6-2.6)
[2022-05-20 05:16] LABS: Hep C IgG Ab Reflex HepC Qnt (NonReactive); Hep C Index 14.73 S/CO (0-0.79)
[2022-05-20] MEDS ORDERED: Potassium Chloride 20 MEQ TAB PO SCH (06:15)
[2022-05-20] MEDS: Lisinopril 10 MG TAB PO SCH (10:27)
[2022-05-20] MEDS: Fluconazole 100 MG TAB PO SCH (10:28)
[2022-05-20] MEDS: Cholecalciferol (Vitamin D3) 400 UNITS TAB PO SCH (10:28)
[2022-05-20] MEDS: Zinc Sulfate 220 MG CAP PO SCH (10:28)
[2022-05-20] MEDS: Ascorbic Acid 500 mg Chewable Tablet PO SCH (10:28)
[2022-05-20] MEDS ORDERED: Diltiazem 125 MG in Sodium Chloride 0.9% 100 ML IVPB SCH (13:15)
[2022-05-20] MEDS: Benzonatate 100 MG CAP PO PRN (21:51)
[2022-05-20] MEDS: Enoxaparin Sodium 60 MG/0.6 ML SYRINGE SC SCH (22:29)
[2022-05-20 22:43] LABS: Amphetamine Not Detected (NotDetected); Barbiturates Screen Not Detected (NotDetected); Benzodiazepine Screen Not Detected (NotDetected); Cocaine Metabolite Screen Detected (NotDetected); Methadone Not Detected (NotDetected); Methamphetamine Not Detected (NotDetected); Opiate Screen Not Detected (NotDetected); Oxycodone Screen Not Detected (NotDetected); Phencyclidine (PCP) Not Detected (NotDetected); THC/Cannabinoid Screen Not Detected (NotDetected); Tricyclic Screen Not Detected (NotDetected)
[2022-05-21] MEDS: Lisinopril 10 MG TAB PO SCH (09:15)
[2022-05-21] MEDS: Fluconazole 100 MG TAB PO SCH (09:16)
[2022-05-21] MEDS: Ascorbic Acid 500 mg Chewable Tablet PO SCH (09:16)
[2022-05-21] MEDS: Zinc Sulfate 220 MG CAP PO SCH (09:17)
[2022-05-21] MEDS: Enoxaparin Sodium 60 MG/0.6 ML SYRINGE SC SCH ×2 (09:17→19:53)
[2022-05-21] MEDS: Cholecalciferol (Vitamin D3) 400 UNITS TAB PO SCH (09:17)
[2022-05-21] MEDS ORDERED: Amlodipine 5 MG TAB PO SCH (09:45)
[2022-05-21 11:28] LABS: Anion Gap 10 mmol/L (10-20); BUN (Urea Nitrogen) 12 mg/dL (8.4-25.7); Calc. Creatinine Clearance 75 mL/min (70-130); Calcium 8.6 mg/dL (7.8-10.44); Carbon Dioxide 25 mmol/L (23-31); Chloride 105 mmol/L (98-107); Estimated GFR 99; Glucose 144 mg/dL (80-115); Potassium 3.5 mmol/L (3.5-5.1); Sodium 136 mmol/L (136-145)
[2022-05-21] MEDS ORDERED: Multivitamin W/ Minerals 1 TAB PO SCH (15:00)
[2022-05-22 04:22] LABS: Anion Gap 13 mmol/L (10-20); BUN (Urea Nitrogen) 15 mg/dL (8.4-25.7); Calc. Creatinine Clearance 75 mL/min (70-130); Calcium 8.6 mg/dL (7.8-10.44); Carbon Dioxide 24 mmol/L (23-31); Chloride 103 mmol/L (98-107); Estimated GFR 99; Glucose 94 mg/dL (80-115); Potassium 3.5 mmol/L (3.5-5.1); Sodium 136 mmol/L (136-145)
[2022-05-22 04:35] LABS: Eosinophils 3 % (0-10); Hemoglobin 15.5 g/dL (14.0-18.0); Lymphocytes 38 % (21-51); MDiff Complete? YES; Mean Corpuscular HGB CONC 33.8 g/dL (32.0-36.0); Mean Corpuscular Hemoglobin 32.9 pg (27.0-31.0); Mean Corpuscular Volume 97.2 fL (78.0-98.0); Mean Platelet Volume 9.4 fL (7.4-10.4); Monocytes 6 % (0-10); Neutrophil 37 % (42-75); Platelet Count 101 thou/uL (130-400); Platelet Morphology Comment Appears Decreased; Promyelocytes 2 % (0-0); RBC Distribution Width 11.8 % (11.5-14.5); RBC Morphology Normal; Reactive Lymphocytes 14 % (0-10); White Blood Cell (WBC) Count 4.6 thou/uL (4.8-10.8)
[2022-05-22] MEDS: Lisinopril 10 MG TAB PO SCH (09:33)
[2022-05-22] MEDS: Fluconazole 100 MG TAB PO SCH (09:33)
[2022-05-22] MEDS: Enoxaparin Sodium 60 MG/0.6 ML SYRINGE SC SCH (09:33)
[2022-05-22] MEDS: Zinc Sulfate 220 MG CAP PO SCH (09:33)
[2022-05-22] MEDS: Cholecalciferol (Vitamin D3) 400 UNITS TAB PO SCH (09:33)
[2022-05-22] MEDS: Multivitamin W/ Minerals 1 TAB PO SCH (09:33)
[2022-05-22] MEDS: Amlodipine 5 MG TAB PO SCH (09:33)
[2022-05-22] MEDS: Ascorbic Acid 500 mg Chewable Tablet PO SCH (09:33)
[2022-05-22] MEDS: Apixaban 5 MG TAB PO SCH (21:17)
[2022-05-22] MEDS: Benzonatate 100 MG CAP PO PRN (21:18)
[2022-05-23] MEDS: Amlodipine 5 MG TAB PO SCH (10:50)
[2022-05-23] MEDS: Apixaban 5 MG TAB PO SCH ×2 (10:52→20:05)
[2022-05-23] MEDS: Ascorbic Acid 500 mg Chewable Tablet PO SCH (10:53)
[2022-05-23] MEDS: Fluconazole 100 MG TAB PO SCH (10:55)
[2022-05-23] MEDS: Cholecalciferol (Vitamin D3) 400 UNITS TAB PO SCH (10:55)
[2022-05-23] MEDS: Lisinopril 10 MG TAB PO SCH (10:56)
[2022-05-23] MEDS: Multivitamin W/ Minerals 1 TAB PO SCH (10:56)
[2022-05-23] MEDS: Zinc Sulfate 220 MG CAP PO SCH (10:57)
[2022-05-24 04:48] LABS: #Eosinphils 0.2 thou/uL (0.0-0.7); #Monocytes 0.6 thou/uL (0.11-0.59); #Neutrophils 3.5 thou/uL (1.40-6.50); %Basophils 0.7 % (0.0-1.0); %Eosinophils 2.8 % (0.0-10.0); %Monocytes 9.8 % (0.0-10.0); %Neutrophils 54.8 % (42.0-75.0); Hemoglobin 16.3 g/dL (14.0-18.0); Mean Corpuscular HGB CONC 33.1 g/dL (32.0-36.0); Mean Corpuscular Hemoglobin 32.2 pg (27.0-31.0); Mean Corpuscular Volume 97.5 fL (78.0-98.0); Mean Platelet Volume 9.4 fL (7.4-10.4); Platelet Count 119 thou/uL (130-400); RBC Distribution Width 11.8 % (11.5-14.5); Red Blood Cell (RBC) Count 5.06 mill/uL (4.70-6.10); White Blood Cell (WBC) Count 6.4 thou/uL (4.8-10.8)
[2022-05-24 05:22] LABS: Anion Gap 16 mmol/L (10-20); BUN (Urea Nitrogen) 14 mg/dL (8.4-25.7); Calc. Creatinine Clearance 87 mL/min (70-130); Carbon Dioxide 22 mmol/L (23-31); Chloride 103 mmol/L (98-107); Estimated GFR 102; Glucose 98 mg/dL (80-115); Potassium 3.6 mmol/L (3.5-5.1); Sodium 137 mmol/L (136-145)
[2022-05-24 09:14] LABS: HCV RNA, log10 5.338 (.); Hep C PCR-Quant 218000 IU/mL (.)
[2022-05-24] MEDS: Ascorbic Acid 500 mg Chewable Tablet PO SCH (09:44)
[2022-05-24] MEDS: Fluconazole 100 MG TAB PO SCH (09:45)
[2022-05-24] MEDS: Lisinopril 10 MG TAB PO SCH (09:45)
[2022-05-24] MEDS: Amlodipine 5 MG TAB PO SCH (09:45)
[2022-05-24] MEDS: Cholecalciferol (Vitamin D3) 400 UNITS TAB PO SCH (09:45)
[2022-05-24] MEDS: Apixaban 5 MG TAB PO SCH ×2 (09:45→20:34)
[2022-05-24] MEDS: Multivitamin W/ Minerals 1 TAB PO SCH (09:46)
[2022-05-24] MEDS: Zinc Sulfate 220 MG CAP PO SCH (09:46)
[2022-05-24 10:38] VITALS: BMI 17.8
[2022-05-24] MEDS: hydrALAZINE 20 MG/ML VIAL SLOW IVP PRN (20:34)
[2022-05-25 04:08] LABS: #Eosinphils 0.2 thou/uL (0.0-0.7); #Lymphocytes 2.1 thou/uL (1.20-3.40); #Monocytes 0.9 thou/uL (0.11-0.59); #Neutrophils 6.1 thou/uL (1.40-6.50); %Basophils 0.2 % (0.0-1.0); %Lymphocytes 22.9 % (21.0-51.0); %Monocytes 9.8 % (0.0-10.0); %Neutrophils 65.2 % (42.0-75.0); Hemoglobin 15.2 g/dL (14.0-18.0); Mean Corpuscular HGB CONC 34.9 g/dL (32.0-36.0); Mean Corpuscular Hemoglobin 33.9 pg (27.0-31.0); Mean Corpuscular Volume 97.1 fL (78.0-98.0); Mean Platelet Volume 9.4 fL (7.4-10.4); Platelet Count 132 thou/uL (130-400); Red Blood Cell (RBC) Count 4.49 mill/uL (4.70-6.10); White Blood Cell (WBC) Count 9.3 thou/uL (4.8-10.8)
[2022-05-25 04:33] LABS: Anion Gap 12 mmol/L (10-20); BUN (Urea Nitrogen) 23 mg/dL (8.4-25.7); Calc. Creatinine Clearance 77 mL/min (70-130); Calcium 9.3 mg/dL (7.8-10.44); Carbon Dioxide 25 mmol/L (23-31); Chloride 103 mmol/L (98-107); Estimated GFR 99; Glucose 107 mg/dL (80-115); Potassium 3.9 mmol/L (3.5-5.1); Sodium 136 mmol/L (136-145)
[2022-05-25] MEDS: Multivitamin W/ Minerals 1 TAB PO SCH (08:37)
[2022-05-25] MEDS: Zinc Sulfate 220 MG CAP PO SCH (08:37)
[2022-05-25] MEDS: Amlodipine 5 MG TAB PO SCH (08:37)
[2022-05-25] MEDS: Ascorbic Acid 500 mg Chewable Tablet PO SCH (08:39)
[2022-05-25] MEDS: Fluconazole 100 MG TAB PO SCH (08:39)
[2022-05-25] MEDS: Apixaban 5 MG TAB PO SCH ×2 (08:39→21:34)
[2022-05-25] MEDS: Cholecalciferol (Vitamin D3) 400 UNITS TAB PO SCH (08:40)
[2022-05-25] MEDS: Lisinopril 10 MG TAB PO SCH (08:40)
[2022-05-25] MEDS: Metoprolol Tartrate 25 MG TAB PO SCH ×2 (10:17→21:34)
[2022-05-25] MEDS: hydrALAZINE 20 MG/ML VIAL SLOW IVP PRN (21:34)
[2022-05-26 04:31] LABS: Anion Gap 14 mmol/L (10-20); BUN (Urea Nitrogen) 19 mg/dL (8.4-25.7); Calc. Creatinine Clearance 81 mL/min (70-130); Calcium 9.1 mg/dL (7.8-10.44); Carbon Dioxide 23 mmol/L (23-31); Chloride 104 mmol/L (98-107); Estimated GFR 100; Glucose 105 mg/dL (80-115); Potassium 3.6 mmol/L (3.5-5.1); Sodium 137 mmol/L (136-145)
[2022-05-26 04:42] LABS: #Eosinphils 0.1 thou/uL (0.0-0.7); #Lymphocytes 1.7 thou/uL (1.20-3.40); #Monocytes 0.8 thou/uL (0.11-0.59); #Neutrophils 6.8 thou/uL (1.40-6.50); %Basophils 0.3 % (0.0-1.0); %Lymphocytes 17.7 % (21.0-51.0); %Monocytes 8.4 % (0.0-10.0); %Neutrophils 72.6 % (42.0-75.0); Hemoglobin 14.8 g/dL (14.0-18.0); Mean Corpuscular HGB CONC 33.9 g/dL (32.0-36.0); Mean Corpuscular Hemoglobin 33.1 pg (27.0-31.0); Mean Corpuscular Volume 97.5 fL (78.0-98.0); Mean Platelet Volume 9.3 fL (7.4-10.4); Platelet Count 145 thou/uL (130-400); RBC Distribution Width 11.8 % (11.5-14.5); Red Blood Cell (RBC) Count 4.48 mill/uL (4.70-6.10); White Blood Cell (WBC) Count 9.3 thou/uL (4.8-10.8)
[2022-05-26] MEDS: hydrALAZINE 20 MG/ML VIAL SLOW IVP PRN (05:25)
[2022-05-26] MEDS: Amlodipine 5 MG TAB PO SCH (08:43)
[2022-05-26] MEDS: Multivitamin W/ Minerals 1 TAB PO SCH (08:43)
[2022-05-26] MEDS: Apixaban 5 MG TAB PO SCH ×2 (08:43→21:45)
[2022-05-26] MEDS: Ascorbic Acid 500 mg Chewable Tablet PO SCH (08:43)
[2022-05-26] MEDS: Metoprolol Tartrate 25 MG TAB PO SCH ×2 (08:43→21:46)
[2022-05-26] MEDS: Lisinopril 10 MG TAB PO SCH (08:43)
[2022-05-26] MEDS: Zinc Sulfate 220 MG CAP PO SCH (08:43)
[2022-05-26] MEDS: Cholecalciferol (Vitamin D3) 400 UNITS TAB PO SCH (08:44)
[2022-05-27] MEDS: Amlodipine 5 MG TAB PO SCH (10:27)
[2022-05-27] MEDS: Apixaban 5 MG TAB PO SCH ×2 (10:28→21:15)
[2022-05-27] MEDS: Cholecalciferol (Vitamin D3) 400 UNITS TAB PO SCH (10:28)
[2022-05-27] MEDS: Ascorbic Acid 500 mg Chewable Tablet PO SCH (10:28)
[2022-05-27] MEDS: Lisinopril 10 MG TAB PO SCH (10:28)
[2022-05-27] MEDS: Multivitamin W/ Minerals 1 TAB PO SCH (10:29)
[2022-05-27] MEDS: Metoprolol Tartrate 25 MG TAB PO SCH ×2 (10:29→21:15)
[2022-05-27] MEDS: Zinc Sulfate 220 MG CAP PO SCH (10:29)
[2022-05-28] MEDS: Amlodipine 5 MG TAB PO SCH (10:09)
[2022-05-28] MEDS: Metoprolol Tartrate 25 MG TAB PO SCH ×2 (10:10→20:54)
[2022-05-28] MEDS: Cholecalciferol (Vitamin D3) 400 UNITS TAB PO SCH (10:10)
[2022-05-28] MEDS: Ascorbic Acid 500 mg Chewable Tablet PO SCH (10:10)
[2022-05-28] MEDS: Apixaban 5 MG TAB PO SCH ×2 (10:10→20:54)
[2022-05-28] MEDS: Lisinopril 10 MG TAB PO SCH (10:10)
[2022-05-28] MEDS: Multivitamin W/ Minerals 1 TAB PO SCH (10:11)
[2022-05-28] MEDS: Zinc Sulfate 220 MG CAP PO SCH (10:11)
[2022-05-29] MEDS: Ascorbic Acid 500 mg Chewable Tablet PO SCH (10:40)
[2022-05-29] MEDS: Cholecalciferol (Vitamin D3) 400 UNITS TAB PO SCH (10:40)
[2022-05-29] MEDS: Metoprolol Tartrate 25 MG TAB PO SCH ×2 (10:40→20:59)
[2022-05-29] MEDS: Amlodipine 5 MG TAB PO SCH (10:40)
[2022-05-29] MEDS: Multivitamin W/ Minerals 1 TAB PO SCH (10:40)
[2022-05-29] MEDS: Zinc Sulfate 220 MG CAP PO SCH (10:40)
[2022-05-29] MEDS: Lisinopril 10 MG TAB PO SCH (10:40)
[2022-05-29] MEDS: Apixaban 5 MG TAB PO SCH ×2 (10:40→20:59)
[2022-05-30] MEDS: hydrALAZINE 20 MG/ML VIAL SLOW IVP PRN (04:10)
[2022-05-30] MEDS ORDERED: Amlodipine 5 MG TAB PO SCH (09:00)
[2022-05-30] MEDS: Multivitamin W/ Minerals 1 TAB PO SCH (09:20)
[2022-05-30] MEDS: Metoprolol Tartrate 25 MG TAB PO SCH (09:21)
[2022-05-30] MEDS: Zinc Sulfate 220 MG CAP PO SCH (09:21)
[2022-05-30] MEDS: Cholecalciferol (Vitamin D3) 400 UNITS TAB PO SCH (09:21)
[2022-05-30] MEDS: Apixaban 5 MG TAB PO SCH (09:21)
[2022-05-30] MEDS: Ascorbic Acid 500 mg Chewable Tablet PO SCH (09:22)
[2022-05-30] MEDS: Lisinopril 10 MG TAB PO SCH (09:23)
[2022-05-30 16:39] VITALS: BP 135/75; TEMP 98
== END 2022-05-30 16:25 | disposition home or self-care (01) | DRG 177 ==
LOC: ERS 21:19 → 2NO 05-19 00:14
PROVIDERS: ADMIT Student in an Organized Health Care Education/Training Program; ATTEND Internal Medicine
PROC: 8E0ZXY6 Isolation (ICD-10-PCS; principal; 2022-05-19)
DX: U07.1 COVID-19 (principal); J12.82 Pneumonia due to coronavirus disease 2019; G93.41 Metabolic encephalopathy; Z68.1 Body mass index [BMI] 19.9 or less, adult; I47.2 Ventricular tachycardia; N39.0 Urinary tract infection, site not specified; R64 Cachexia; I10 Essential (primary) hypertension; R62.7 Adult failure to thrive; F12.90 Cannabis use, unspecified, uncomplicated; R31.9 Hematuria, unspecified; I49.5 Sick sinus syndrome; B19.20 Unspecified viral hepatitis C without hepatic coma; I48.0 Paroxysmal atrial fibrillation; F17.210 Nicotine dependence, cigarettes, uncomplicated; Z71.6 Tobacco abuse counseling; Z79.899 Other long term (current) drug therapy
CPT/HCPCS: 36415; 36416; 51701; 70450; 71045; 74176; 80048; 80053; 80074; 80306; 81003; 81015; 83605; 83735; 84443; 85025; 86803; 87040; 87086; 87522; 93005; 93010; 93306; 96360; 96365; 96375; J0360; J0696; J1650; J7050; U0002

== ENCOUNTER 2022-06-02 20:52 | Emergency (ER) | payer OTHER ==
[2022-06-02 23:10] LABS: Bacteria/HPF None Seen HPF (None Seen); Bilirubin Negative (Negative); Blood, Urine 2+ (Negative); Clarity Clear (Clear); Glucose, Urine (Dipstick) Normal (Negative); Ketone, Urine Negative (Negative); Leukocyte Negative Leu/uL (Negative); Nitrite Negative (Negative); Protein, Urine (Dipstick) Negative (Neg-Trace); Specific Gravity, Urine 1.018 (1.002-1.036); Squamous Epithelial 0-3 HPF (0-3); Urobilinogen Normal mg/dL (Less than 2); WBC/HPF 0-3 HPF (0-3); pH, Urine 5.5 (5.0-9.0)
== END 2022-06-03 00:12 | disposition home or self-care (01) ==
LOC: ERS 20:52
DX: B35.6 Tinea cruris (principal); I10 Essential (primary) hypertension; F17.210 Nicotine dependence, cigarettes, uncomplicated
CPT/HCPCS: 81003; 81015; 99284

== ENCOUNTER 2022-09-16 11:08 | Inpatient (IN) | payer OTHER ==
[2022-09-16] MEDS ORDERED: Cefepime 2 GM VIAL ONE (11:27)
[2022-09-16 11:32] LABS: #Lymphocytes 1.4 thou/uL (1.20-3.40); #Monocytes 1.2 thou/uL (0.11-0.59); #Neutrophils 14.9 thou/uL (1.40-6.50); %Eosinophils 0.3 % (0.0-10.0); %Lymphocytes 8.2 % (21.0-51.0); %Monocytes 6.7 % (0.0-10.0); %Neutrophils 84.8 % (42.0-75.0); Hemoglobin 16.1 g/dL (14.0-18.0); Mean Corpuscular HGB CONC 33.5 g/dL (32.0-36.0); Mean Corpuscular Hemoglobin 32.7 pg (27.0-31.0); Mean Corpuscular Volume 97.5 fl (78.0-98.0); Mean Platelet Volume 8.6 fL (7.4-10.4); Platelet Count 162 thou/uL (130-400); RBC Distribution Width 11.5 % (11.5-14.5); Red Blood Cell (RBC) Count 4.93 mill/uL (4.70-6.10); White Blood Cell (WBC) Count 17.5 thou/uL (4.8-10.8)
[2022-09-16 11:45] LABS: INR-International Normal Ratio 1.1; PTT 32.1 sec (22.9-36.1); Prothrombin Time 14.3 sec (12.0-14.7)
[2022-09-16 11:52] LABS: ALT (SGPT) 22 U/L (8-55); AST (SGOT) 24 U/L (5-34); Albumin 3.8 g/dL (3.4-4.8); Alkaline Phosphatase 76 U/L (40-110); Anion Gap 15 mmol/L (10-20); BUN (Urea Nitrogen) 16 mg/dL (8.4-25.7); Bilirubin, Total 1.3 mg/dL (0.2-1.2); Calc. Creatinine Clearance 0 mL/min (70-130); Calcium 9.7 mg/dL (7.8-10.44); Carbon Dioxide 24 mmol/L (23-31); Chloride 102 mmol/L (98-107); Estimated GFR 79; Globulin 3.7 g/dL (2.4-3.5); Glucose 148 mg/dL (80-115); Potassium 3.6 mmol/L (3.5-5.1); Protein, Total 7.5 g/dL (5.8-8.1); Sodium 137 mmol/L (136-145)
[2022-09-16] MEDS ORDERED: Vancomycin 1.5 GRAM/300 ML BAG 1.5 GM in Premix Bag 1 BAG IVPB SCH (12:00)
[2022-09-16 13:28] LABS: Bacteria/HPF 3+ HPF (None Seen); Bilirubin Negative (Negative); Blood, Urine 2+ (Negative); Glucose, Urine (Dipstick) Normal (Negative); Ketone, Urine Negative (Negative); Leukocyte 500 Leu/uL (Negative); Nitrite 1+ (Negative); Protein, Urine (Dipstick) 30 mg/dL (Neg-Trace); RBC/HPF 21-50 HPF (0-3); Squamous Epithelial None Seen HPF (0-3); Urobilinogen Normal mg/dL (Less than 2); WBC/HPF Greater than 50 HPF (0-3); pH, Urine 7.5 (5.0-9.0)
[2022-09-16 13:29] LABS: Clarity Cloudy (Clear)
[2022-09-16 14:42] LABS: Lactic Acid 0.9 mmol/L (0.5-2.2)
[2022-09-16 15:27] LABS: SARS-CoV-2 NAA Rapid Test Not Detected (NotDetected)
[2022-09-16] MEDS ORDERED: Ondansetron PF 4 MG/2 ML Vial IVP PRN (16:14)
[2022-09-16] MEDS ORDERED: Ondansetron ODT 4 MG TAB PO PRN (16:14)
[2022-09-16] MEDS ORDERED: Acetaminophen 650 MG Suppository PR PRN (16:14)
[2022-09-16] MEDS: Sodium Chloride 0.9% 1,000 ML IV SCH (17:52)
[2022-09-16] MEDS ORDERED: Cefepime 2 GM in Sodium Chloride 0.9% 100 ML IVPB SCH (21:00)
[2022-09-17] MEDS ORDERED: hydrALAZINE 20 MG/ML VIAL SLOW IVP SCH (00:15)
[2022-09-17] MEDS: Sodium Chloride 0.9% 1,000 ML IV SCH ×3 (00:37→12:59)
[2022-09-17 06:45] LABS: #Eosinphils 0.1 thou/uL (0.0-0.7); #Lymphocytes 1.6 thou/uL (1.20-3.40); #Monocytes 1.3 thou/uL (0.11-0.59); #Neutrophils 14.4 thou/uL (1.40-6.50); %Basophils 0.2 % (0.0-1.0); %Eosinophils 0.4 % (0.0-10.0); %Lymphocytes 9.1 % (21.0-51.0); %Monocytes 7.5 % (0.0-10.0); %Neutrophils 82.8 % (42.0-75.0); Hemoglobin 13.8 g/dL (14.0-18.0); Mean Corpuscular HGB CONC 33.7 g/dL (32.0-36.0); Mean Corpuscular Hemoglobin 32.8 pg (27.0-31.0); Mean Corpuscular Volume 97.3 fl (78.0-98.0); Mean Platelet Volume 9.5 fL (7.4-10.4); Platelet Count 133 thou/uL (130-400); RBC Distribution Width 11.5 % (11.5-14.5); White Blood Cell (WBC) Count 17.4 thou/uL (4.8-10.8)
[2022-09-17 07:08] LABS: Anion Gap 9 mmol/L (10-20); BUN (Urea Nitrogen) 12 mg/dL (8.4-25.7); Calc. Creatinine Clearance 75 mL/min (70-130); Calcium 8.6 mg/dL (7.8-10.44); Carbon Dioxide 21 mmol/L (23-31); Chloride 109 mmol/L (98-107); Estimated GFR 99; Glucose 103 mg/dL (80-115); Potassium 3.2 mmol/L (3.5-5.1); Sodium 136 mmol/L (136-145)
[2022-09-17] MEDS ORDERED: Amlodipine 5 MG TAB PO SCH (09:00)
[2022-09-17] MEDS ORDERED: FLU VACC QS2022-23(65YR UP)/PF 240 MCG/0.7 ML SYRINGE IM ONE (09:00)
[2022-09-17] MEDS: Amlodipine 10 MG TAB PO SCH (09:37)
[2022-09-17] MEDS: Apixaban 5 MG TAB PO SCH ×2 (09:37→20:28)
[2022-09-17] MEDS: Lisinopril 10 MG TAB PO SCH (09:37)
[2022-09-17] MEDS: Metoprolol Tartrate 25 MG TAB PO SCH ×2 (09:37→20:42)
[2022-09-17] MEDS ORDERED: cefTRIAXone\\ROCEPHIN 1 GM in Sodium Chloride 0.9% 100 ML IVPB SCH (12:00)
[2022-09-17] MEDS ORDERED: diphenhydrAMINE 25 MG CAP PO PRN (12:11)
[2022-09-17] MEDS ORDERED: diphenhydrAMINE 25 MG CAP PO SCH (12:15)
[2022-09-17] MEDS ORDERED: Diltiazem 125 MG in Sodium Chloride 0.9% 100 ML IVPB SCH (17:00)
[2022-09-17] MEDS: metroNIDAZOLE 500 MG in Premix Bag 1 BAG IVPB SCH (22:23)
[2022-09-18 05:15] LABS: #Lymphocytes 1.5 thou/uL (1.20-3.40); #Monocytes 1.5 thou/uL (0.11-0.59); #Neutrophils 16.8 thou/uL (1.40-6.50); %Eosinophils 0.1 % (0.0-10.0); %Lymphocytes 7.8 % (21.0-51.0); %Monocytes 7.6 % (0.0-10.0); %Neutrophils 84.5 % (42.0-75.0); Hemoglobin 15.2 g/dL (14.0-18.0); Mean Corpuscular Hemoglobin 33.2 pg (27.0-31.0); Mean Corpuscular Volume 97.8 fl (78.0-98.0); Mean Platelet Volume 8.9 fL (7.4-10.4); Platelet Count 166 thou/uL (130-400); RBC Distribution Width 11.5 % (11.5-14.5); Red Blood Cell (RBC) Count 4.59 mill/uL (4.70-6.10); White Blood Cell (WBC) Count 19.8 thou/uL (4.8-10.8)
[2022-09-18 05:57] LABS: Anion Gap 12 mmol/L (10-20); BUN (Urea Nitrogen) 14 mg/dL (8.4-25.7); Calc. Creatinine Clearance 70 mL/min (70-130); Carbon Dioxide 22 mmol/L (23-31); Chloride 104 mmol/L (98-107); Estimated GFR 97; Glucose 135 mg/dL (80-115); Potassium 3.2 mmol/L (3.5-5.1); Sodium 135 mmol/L (136-145)
[2022-09-18] MEDS: metroNIDAZOLE 500 MG in Premix Bag 1 BAG IVPB SCH (06:25)
[2022-09-18] MEDS: Amlodipine 10 MG TAB PO SCH (08:57)
[2022-09-18] MEDS: Metoprolol Tartrate 25 MG TAB PO SCH (08:57)
[2022-09-18] MEDS: Lisinopril 10 MG TAB PO SCH (08:57)
[2022-09-18] MEDS: Apixaban 5 MG TAB PO SCH ×2 (08:58→20:32)
[2022-09-18] MEDS ORDERED: Meropenem 1 GM in Sodium Chloride 0.9% 100 ML IVPB SCH (10:00)
[2022-09-18] MEDS: Sodium Chloride 0.9% 1,000 ML IV SCH (10:35)
[2022-09-18] MEDS: Meropenem 1 GM in Sodium Chloride 0.9% 100 ML IVPB SCH (17:20)
[2022-09-19] MEDS: Meropenem 1 GM in Sodium Chloride 0.9% 100 ML IVPB SCH ×3 (02:51→17:14)
[2022-09-19] MEDS: Sodium Chloride 0.9% 1,000 ML IV SCH ×2 (06:01→17:14)
[2022-09-19 06:09] LABS: #Eosinphils 0.1 thou/uL (0.0-0.7); #Lymphocytes 1.5 thou/uL (1.20-3.40); #Monocytes 1.4 thou/uL (0.11-0.59); #Neutrophils 11.2 thou/uL (1.40-6.50); %Basophils 0.1 % (0.0-1.0); %Eosinophils 0.9 % (0.0-10.0); %Lymphocytes 10.4 % (21.0-51.0); %Monocytes 9.6 % (0.0-10.0); Mean Corpuscular HGB CONC 33.7 g/dL (32.0-36.0); Mean Corpuscular Volume 97.7 fl (78.0-98.0); Mean Platelet Volume 9.5 fL (7.4-10.4); Platelet Count 185 10x3/uL (130-400); RBC Distribution Width 11.5 % (11.5-14.5); Red Blood Cell (RBC) Count 4.55 mill/uL (4.70-6.10); White Blood Cell (WBC) Count 14.2 10x3/uL (4.8-10.8)
[2022-09-19 06:10] LABS: Anion Gap 13 mmol/L (10-20); BUN (Urea Nitrogen) 20 mg/dL (8.4-25.7); Calc. Creatinine Clearance 85 mL/min (70-130); Calcium 8.6 mg/dL (7.8-10.44); Carbon Dioxide 20 mmol/L (23-31); Chloride 107 mmol/L (98-107); Estimated GFR 99; Glucose 134 mg/dL (80-115); Potassium 3.2 mmol/L (3.5-5.1); Sodium 137 mmol/L (136-145)
[2022-09-19] MEDS: Apixaban 5 MG TAB PO SCH ×2 (08:48→21:10)
[2022-09-19] MEDS: Lisinopril 10 MG TAB PO SCH (08:48)
[2022-09-19] MEDS ORDERED: Acetaminophen 325 MG TAB PO SCH (09:35)
[2022-09-19] MEDS ORDERED: Potassium Chloride 20 MEQ TAB PO SCH (12:30)
[2022-09-20] MEDS: Meropenem 1 GM in Sodium Chloride 0.9% 100 ML IVPB SCH ×3 (02:23→17:12)
[2022-09-20 04:43] LABS: #Basophils 0.1 thou/uL (0.0-0.2); #Eosinphils 0.2 thou/uL (0.0-0.7); #Lymphocytes 1.7 thou/uL (1.20-3.40); #Monocytes 1.1 thou/uL (0.11-0.59); #Neutrophils 7.5 thou/uL (1.40-6.50); %Basophils 0.6 % (0.0-1.0); %Eosinophils 2.3 % (0.0-10.0); %Lymphocytes 15.6 % (21.0-51.0); %Monocytes 10.6 % (0.0-10.0); %Neutrophils 70.9 % (42.0-75.0); Hemoglobin 14.8 g/dL (14.0-18.0); Mean Corpuscular HGB CONC 33.5 g/dL (32.0-36.0); Mean Corpuscular Hemoglobin 32.8 pg (27.0-31.0); Mean Platelet Volume 9.2 fL (7.4-10.4); Platelet Count 188 10x3/uL (130-400); RBC Distribution Width 11.6 % (11.5-14.5); Red Blood Cell (RBC) Count 4.51 mill/uL (4.70-6.10); White Blood Cell (WBC) Count 10.6 10x3/uL (4.8-10.8)
[2022-09-20] MEDS ORDERED: Metoprolol Tartrate 5 MG/5 ML VIAL IVP SCH (04:44)
[2022-09-20 05:13] LABS: Anion Gap 13 mmol/L (10-20); BUN (Urea Nitrogen) 19 mg/dL (8.4-25.7); Calc. Creatinine Clearance 89 mL/min (70-130); Calcium 8.4 mg/dL (7.8-10.44); Carbon Dioxide 20 mmol/L (23-31); Chloride 109 mmol/L (98-107); Estimated GFR 101; Glucose 127 mg/dL (80-115); Magnesium 1.8 mg/dL (1.6-2.6); Potassium 3.7 mmol/L (3.5-5.1); Sodium 138 mmol/L (136-145)
[2022-09-20] MEDS: Apixaban 5 MG TAB PO SCH ×2 (09:24→20:35)
[2022-09-20] MEDS: Lisinopril 10 MG TAB PO SCH (09:24)
[2022-09-20] MEDS: Acetaminophen 325 MG TAB PO PRN (20:35)
[2022-09-20] MEDS: Sodium Chloride 0.9% 1,000 ML IV SCH (23:58)
[2022-09-21] MEDS: Meropenem 1 GM in Sodium Chloride 0.9% 100 ML IVPB SCH ×3 (02:02→18:27)
[2022-09-21] MEDS: Sodium Chloride 0.9% 1,000 ML IV SCH ×2 (02:03→17:10)
[2022-09-21 04:52] LABS: #Basophils 0.1 thou/uL (0.0-0.2); #Eosinphils 0.4 thou/uL (0.0-0.7); #Lymphocytes 1.9 thou/uL (1.20-3.40); %Basophils 0.8 % (0.0-1.0); %Eosinophils 3.9 % (0.0-10.0); %Monocytes 11.2 % (0.0-10.0); %Neutrophils 64.1 % (42.0-75.0); Hemoglobin 15.5 g/dL (14.0-18.0); Mean Corpuscular HGB CONC 33.7 g/dL (32.0-36.0); Mean Corpuscular Hemoglobin 33.4 pg (27.0-31.0); Mean Corpuscular Volume 98.9 fl (78.0-98.0); Platelet Count 198 10x3/uL (130-400); RBC Distribution Width 11.7 % (11.5-14.5); Red Blood Cell (RBC) Count 4.64 mill/uL (4.70-6.10); White Blood Cell (WBC) Count 9.3 10x3/uL (4.8-10.8)
[2022-09-21 05:32] LABS: Anion Gap 9 mmol/L (10-20); BUN (Urea Nitrogen) 17 mg/dL (8.4-25.7); Calc. Creatinine Clearance 86 mL/min (70-130); Calcium 8.7 mg/dL (7.8-10.44); Carbon Dioxide 24 mmol/L (23-31); Chloride 108 mmol/L (98-107); Estimated GFR 101; Glucose 117 mg/dL (80-115); Potassium 3.6 mmol/L (3.5-5.1); Sodium 137 mmol/L (136-145)
[2022-09-21] MEDS: Apixaban 5 MG TAB PO SCH ×2 (08:46→20:38)
[2022-09-21] MEDS: Lisinopril 10 MG TAB PO SCH (08:46)
[2022-09-21] MEDS: Acetaminophen 325 MG TAB PO PRN (20:37)
[2022-09-22] MEDS: Meropenem 1 GM in Sodium Chloride 0.9% 100 ML IVPB SCH ×3 (02:16→17:15)
[2022-09-22] MEDS: Apixaban 5 MG TAB PO SCH ×2 (09:11→21:09)
[2022-09-22] MEDS: Lisinopril 10 MG TAB PO SCH (09:11)
[2022-09-22] MEDS: Sodium Chloride 0.9% 1,000 ML IV SCH (15:30)
[2022-09-22] MEDS: Acetaminophen 325 MG TAB PO PRN (21:09)
[2022-09-23] MEDS: Meropenem 1 GM in Sodium Chloride 0.9% 100 ML IVPB SCH ×3 (00:47→17:35)
[2022-09-23] MEDS ORDERED: Lisinopril 10 MG TAB PO SCH (04:00)
[2022-09-23] MEDS: Acetaminophen 325 MG TAB PO PRN (04:29)
[2022-09-23] MEDS: Apixaban 5 MG TAB PO SCH ×2 (09:02→20:32)
[2022-09-23] MEDS: Tamsulosin HCl 0.4 MG CAP PO SCH (09:02)
[2022-09-23] MEDS: Sodium Chloride 0.9% 1,000 ML IV SCH (09:56)
[2022-09-23] MEDS ORDERED: Amlodipine 5 MG TAB PO SCH (13:45)
[2022-09-24] MEDS: Meropenem 1 GM in Sodium Chloride 0.9% 100 ML IVPB SCH ×2 (01:54→09:45)
[2022-09-24] MEDS ORDERED: Amlodipine 5 MG TAB PO SCH ×2 (09:00→10:45)
[2022-09-24] MEDS: Apixaban 5 MG TAB PO SCH ×2 (09:45→21:19)
[2022-09-24] MEDS: Tamsulosin HCl 0.4 MG CAP PO SCH (09:45)
[2022-09-24] MEDS: Sodium Chloride 0.9% 1,000 ML IV SCH ×2 (10:03→21:19)
[2022-09-24] MEDS ORDERED: Ciprofloxacin 500 MG TAB PO SCH (10:30)
[2022-09-24] MEDS: Ciprofloxacin 500 MG TAB PO SCH (21:19)
[2022-09-25] MEDS: Ciprofloxacin 500 MG TAB PO SCH ×2 (06:09→20:01)
[2022-09-25 06:27] LABS: #Basophils 0.1 thou/uL (0.0-0.2); #Eosinphils 0.3 thou/uL (0.0-0.7); #Lymphocytes 1.4 thou/uL (1.20-3.40); #Monocytes 0.6 thou/uL (0.11-0.59); #Neutrophils 4.8 thou/uL (1.40-6.50); %Basophils 0.9 % (0.0-1.0); %Lymphocytes 19.7 % (21.0-51.0); %Monocytes 8.2 % (0.0-10.0); %Neutrophils 67.3 % (42.0-75.0); Mean Corpuscular HGB CONC 31.9 g/dL (32.0-36.0); Mean Platelet Volume 7.8 fL (7.4-10.4); Platelet Count 208 10x3/uL (130-400); Red Blood Cell (RBC) Count 4.86 mill/uL (4.70-6.10); White Blood Cell (WBC) Count 7.1 10x3/uL (4.8-10.8)
[2022-09-25 07:36] LABS: Anion Gap 10 mmol/L (10-20); BUN (Urea Nitrogen) 16 mg/dL (8.4-25.7); Calc. Creatinine Clearance 89 mL/min (70-130); Calcium 9.2 mg/dL (7.8-10.44); Carbon Dioxide 26 mmol/L (23-31); Chloride 103 mmol/L (98-107); Estimated GFR 102; Glucose 103 mg/dL (80-115); Potassium 4.1 mmol/L (3.5-5.1); Sodium 135 mmol/L (136-145)
[2022-09-25] MEDS: Amlodipine 10 MG TAB PO SCH (08:36)
[2022-09-25] MEDS: Tamsulosin HCl 0.4 MG CAP PO SCH (08:36)
[2022-09-25] MEDS: Apixaban 5 MG TAB PO SCH ×2 (08:36→20:01)
[2022-09-25] MEDS: Sodium Chloride 0.9% 1,000 ML IV SCH (20:16)
[2022-09-25] MEDS: Acetaminophen 325 MG TAB PO PRN (21:56)
[2022-09-26] MEDS: Ciprofloxacin 500 MG TAB PO SCH ×2 (05:22→20:08)
[2022-09-26 07:47] LABS: #Eosinphils 0.3 thou/uL (0.0-0.7); #Lymphocytes 1.8 thou/uL (1.20-3.40); #Monocytes 0.6 thou/uL (0.11-0.59); #Neutrophils 3.9 thou/uL (1.40-6.50); %Basophils 0.6 % (0.0-1.0); %Eosinophils 4.4 % (0.0-10.0); %Lymphocytes 27.3 % (21.0-51.0); %Monocytes 8.6 % (0.0-10.0); %Neutrophils 59.1 % (42.0-75.0); Hemoglobin 15.5 g/dL (14.0-18.0); Mean Corpuscular HGB CONC 33.4 g/dL (32.0-36.0); Mean Corpuscular Hemoglobin 33.3 pg (27.0-31.0); Mean Corpuscular Volume 99.8 fl (78.0-98.0); Mean Platelet Volume 8.2 fL (7.4-10.4); Platelet Count 232 10x3/uL (130-400); RBC Distribution Width 11.8 % (11.5-14.5); Red Blood Cell (RBC) Count 4.64 mill/uL (4.70-6.10); White Blood Cell (WBC) Count 6.7 10x3/uL (4.8-10.8)
[2022-09-26 07:59] LABS: Anion Gap 10 mmol/L (10-20); BUN (Urea Nitrogen) 21 mg/dL (8.4-25.7); Calc. Creatinine Clearance 76 mL/min (70-130); Calcium 9.1 mg/dL (7.8-10.44); Carbon Dioxide 26 mmol/L (23-31); Chloride 101 mmol/L (98-107); Estimated GFR 97; Glucose 96 mg/dL (80-115); Potassium 4.3 mmol/L (3.5-5.1); Sodium 133 mmol/L (136-145)
[2022-09-26] MEDS: Tamsulosin HCl 0.4 MG CAP PO SCH (08:16)
[2022-09-26] MEDS: Amlodipine 10 MG TAB PO SCH (08:16)
[2022-09-26] MEDS: Apixaban 5 MG TAB PO SCH ×2 (08:17→20:06)
[2022-09-26] MEDS: Sodium Chloride 0.9% 1,000 ML IV SCH (11:00)
[2022-09-26] MEDS: Acetaminophen 325 MG TAB PO PRN (20:07)
[2022-09-27] MEDS: Ciprofloxacin 500 MG TAB PO SCH ×2 (05:53→20:18)
[2022-09-27] MEDS: Sodium Chloride 0.9% 1,000 ML IV SCH (05:54)
[2022-09-27 06:39] LABS: #Basophils 0.1 thou/uL (0.0-0.2); #Eosinphils 0.3 thou/uL (0.0-0.7); #Lymphocytes 2.2 thou/uL (1.20-3.40); #Monocytes 0.7 thou/uL (0.11-0.59); #Neutrophils 5.6 thou/uL (1.40-6.50); %Basophils 1.1 % (0.0-1.0); %Eosinophils 2.9 % (0.0-10.0); %Lymphocytes 25.2 % (21.0-51.0); %Monocytes 7.7 % (0.0-10.0); %Neutrophils 63.1 % (42.0-75.0); Hemoglobin 15.1 g/dL (14.0-18.0); Mean Corpuscular HGB CONC 34.3 g/dL (32.0-36.0); Mean Corpuscular Volume 99.2 fl (78.0-98.0); Platelet Count 237 10x3/uL (130-400); RBC Distribution Width 11.8 % (11.5-14.5); Red Blood Cell (RBC) Count 4.44 mill/uL (4.70-6.10); White Blood Cell (WBC) Count 8.8 10x3/uL (4.8-10.8)
[2022-09-27 07:09] LABS: Anion Gap 9 mmol/L (10-20); BUN (Urea Nitrogen) 22 mg/dL (8.4-25.7); Calc. Creatinine Clearance 83 mL/min (70-130); Calcium 9.1 mg/dL (7.8-10.44); Carbon Dioxide 24 mmol/L (23-31); Chloride 104 mmol/L (98-107); Estimated GFR 100; Glucose 92 mg/dL (80-115); Potassium 4.5 mmol/L (3.5-5.1); Sodium 132 mmol/L (136-145)
[2022-09-27] MEDS: Amlodipine 10 MG TAB PO SCH (09:01)
[2022-09-27] MEDS: Tamsulosin HCl 0.4 MG CAP PO SCH (09:01)
[2022-09-27] MEDS: Apixaban 5 MG TAB PO SCH ×2 (09:01→20:18)
[2022-09-27] MEDS: Acetaminophen 325 MG TAB PO PRN (20:21)
[2022-09-28] MEDS: Sodium Chloride 0.9% 1,000 ML IV SCH (01:31)
[2022-09-28] MEDS: Ciprofloxacin 500 MG TAB PO SCH ×2 (05:32→20:54)
[2022-09-28] MEDS: Tamsulosin HCl 0.4 MG CAP PO SCH (08:26)
[2022-09-28] MEDS: Amlodipine 10 MG TAB PO SCH (08:26)
[2022-09-28] MEDS: Apixaban 5 MG TAB PO SCH ×2 (08:26→20:54)
[2022-09-29] MEDS: Ciprofloxacin 500 MG TAB PO SCH (05:41)
[2022-09-29] MEDS: Sodium Chloride 0.9% 1,000 ML IV SCH (06:16)
[2022-09-29] MEDS: Amlodipine 10 MG TAB PO SCH (09:14)
[2022-09-29] MEDS: Apixaban 5 MG TAB PO SCH ×2 (09:14→20:28)
[2022-09-29] MEDS: Tamsulosin HCl 0.4 MG CAP PO SCH (09:14)
[2022-09-30] MEDS: Sodium Chloride 0.9% 1,000 ML IV SCH ×2 (04:40→22:02)
[2022-09-30] MEDS: Apixaban 5 MG TAB PO SCH ×2 (08:12→21:54)
[2022-09-30] MEDS: Amlodipine 10 MG TAB PO SCH (08:12)
[2022-09-30] MEDS: Tamsulosin HCl 0.4 MG CAP PO SCH (08:12)
[2022-10-01] MEDS: Amlodipine 10 MG TAB PO SCH (08:29)
[2022-10-01] MEDS: Tamsulosin HCl 0.4 MG CAP PO SCH (08:29)
[2022-10-01] MEDS: Apixaban 5 MG TAB PO SCH ×2 (08:29→20:29)
[2022-10-01 15:26] VITALS: BMI 17.9
[2022-10-02 08:42] VITALS: BP 142/74; TEMP 97.6
[2022-10-02] MEDS: Tamsulosin HCl 0.4 MG CAP PO SCH (09:16)
[2022-10-02] MEDS: Amlodipine 10 MG TAB PO SCH (09:16)
[2022-10-02] MEDS: Apixaban 5 MG TAB PO SCH (09:16)
== END 2022-10-02 16:55 | disposition home or self-care (01) | DRG 871 ==
LOC: ERS 11:08 → T4-A 15:16 → 2NO 09-17 19:39 → T4-A 09-24 13:35
PROVIDERS: ADMIT Internal Medicine; ATTEND Internal Medicine
DX: A41.4 Sepsis due to anaerobes (principal); G93.41 Metabolic encephalopathy; J69.0 Pneumonitis due to inhalation of food and vomit; N30.00 Acute cystitis without hematuria; E87.20 Acidosis, unspecified; Z20.822 Contact with and (suspected) exposure to COVID-19; R65.20 Severe sepsis without septic shock; M10.9 Gout, unspecified; N18.9 Chronic kidney disease, unspecified; I12.9 Hypertensive chronic kidney disease with stage 1 through stage 4 chronic kidney disease, or unspecified chronic kidney disease; F17.210 Nicotine dependence, cigarettes, uncomplicated; R29.6 Repeated falls; R13.10 Dysphagia, unspecified; R21 Rash and other nonspecific skin eruption; I48.0 Paroxysmal atrial fibrillation; R33.8 Other retention of urine; Z28.21 Immunization not carried out because of patient refusal; Z79.899 Other long term (current) drug therapy; Z79.01 Long term (current) use of anticoagulants; Z87.440 Personal history of urinary (tract) infections; Z91.81 History of falling; Z86.19 Personal history of other infectious and parasitic diseases
CPT/HCPCS: 36415; 51701; 70450; 71045; 72125; 72170; 74230; 80048; 80053; 81003; 81015; 82607; 83605; 83735; 85025; 85610; 85730; 87040; 87077; 87086; 87186; 87811; 93005; 93010; 94760; 96361; 96374; 96375; 97139; J0360; J0692; J0696; J2185; J3370; J3490; J7050

== ENCOUNTER 2022-11-26 14:08 | Inpatient (IN) | payer MEDICARE, OTHER ==
[2022-11-26] MEDS ORDERED: cefTRIAXone\\ROCEPHIN 2 GM VIAL ONE (15:14)
[2022-11-26] MEDS ORDERED: Vancomycin HCl 750 MG in Sodium Chloride 0.9% 100 ML IVPB SCH (15:15)
[2022-11-26 15:25] LABS: #Eosinphils 0.1 thou/uL (0.0-0.7); #Monocytes 0.6 thou/uL (0.11-0.59); #Neutrophils 5.9 thou/uL (1.40-6.50); %Basophils 0.1 % (0.0-1.0); %Eosinophils 0.8 % (0.0-10.0); %Lymphocytes 13.3 % (21.0-51.0); %Monocytes 8.1 % (0.0-10.0); %Neutrophils 77.8 % (42.0-75.0); Hemoglobin 15.5 g/dL (14.0-18.0); Mean Corpuscular HGB CONC 33.9 g/dL (32.0-36.0); Mean Corpuscular Hemoglobin 32.7 pg (27.0-31.0); Mean Corpuscular Volume 96.7 fl (78.0-98.0); Mean Platelet Volume 8.7 fL (7.4-10.4); Platelet Count 177 10x3/uL (130-400); RBC Distribution Width 11.9 % (11.5-14.5); Red Blood Cell (RBC) Count 4.73 mill/uL (4.70-6.10); White Blood Cell (WBC) Count 7.5 10x3/uL (4.8-10.8)
[2022-11-26 15:42] LABS: Bacteria/HPF 2+ HPF (None Seen); Bilirubin Negative (Negative); Blood, Urine 2+ (Negative); Clarity Turbid (Clear); Glucose, Urine (Dipstick) Normal (Negative); Ketone, Urine Negative (Negative); Leukocyte 500 Leu/uL (Negative); Nitrite 1+ (Negative); Protein, Urine (Dipstick) 30 mg/dL (Neg-Trace); RBC/HPF Greater than 50 HPF (0-3); Specific Gravity, Urine 1.015 (1.002-1.036); Squamous Epithelial None Seen HPF (0-3); Urobilinogen Normal mg/dL (Less than 2); WBC/HPF 21-50 HPF (0-3); Yeast-Budding 1+ HPF (None Seen); pH, Urine 8.5 (5.0-9.0)
[2022-11-26 15:56] LABS: ALT (SGPT) 27 U/L (8-55); AST (SGOT) 38 U/L (5-34); Albumin 3.9 g/dL (3.4-4.8); Alkaline Phosphatase 84 U/L (40-110); Anion Gap 14 mmol/L (10-20); BUN (Urea Nitrogen) 17 mg/dL (8.4-25.7); Bilirubin, Total 0.5 mg/dL (0.2-1.2); Calc. Creatinine Clearance 0 mL/min (70-130); Calcium 9.4 mg/dL (7.8-10.44); Carbon Dioxide 21 mmol/L (23-31); Chloride 107 mmol/L (98-107); Estimated GFR 95; Globulin 3.9 g/dL (2.4-3.5); Glucose 125 mg/dL (80-115); Lipase 25 U/L (8-78); Potassium 3.9 mmol/L (3.5-5.1); Protein, Total 7.8 g/dL (5.8-8.1); Sodium 138 mmol/L (136-145)
[2022-11-26] MEDS ORDERED: Acetaminophen 325 MG TAB PO PRN (17:20)
[2022-11-26] MEDS ORDERED: Ondansetron PF 4 MG/2 ML Vial IVP PRN (17:20)
[2022-11-26] MEDS: Sodium Chloride 0.9% 1,000 ML IV SCH (17:30)
[2022-11-26] MEDS ORDERED: Cefepime 2 GM in Sodium Chloride 0.9% 100 ML IVPB SCH (17:30)
[2022-11-26 18:50] LABS: Lactic Acid 1.6 mmol/L (0.5-2.2)
[2022-11-26] MEDS ORDERED: Vancomycin 1 GM in Premix Bag 1 BAG IVPB SCH (21:00)
[2022-11-27] MEDS: Sodium Chloride 0.9% 1,000 ML IV SCH ×3 (01:30→17:40)
[2022-11-27] MEDS: Apixaban 5 MG TAB PO SCH ×3 (01:30→19:49)
[2022-11-27] MEDS: Metoprolol Tartrate 25 MG TAB PO SCH ×3 (01:30→19:55)
[2022-11-27 05:17] VITALS: BMI 16.7
[2022-11-27] MEDS ORDERED: Cefepime 1 GM in Sodium Chloride 0.9% 100 ML IVPB SCH (06:00)
[2022-11-27] MEDS ORDERED: Cefepime 1 GM VIAL ONE ×2 (06:21→07:53)
[2022-11-27 07:46] LABS: Anion Gap 9 mmol/L (10-20); BUN (Urea Nitrogen) 10 mg/dL (8.4-25.7); Calc. Creatinine Clearance 72 mL/min (70-130); Carbon Dioxide 26 mmol/L (23-31); Chloride 107 mmol/L (98-107); Estimated GFR 98; Glucose 98 mg/dL (80-115); Potassium 3.9 mmol/L (3.5-5.1); Sodium 138 mmol/L (136-145)
[2022-11-27 07:52] LABS: #Eosinphils 0.2 thou/uL (0.0-0.7); #Lymphocytes 2.1 thou/uL (1.20-3.40); %Basophils 0.5 % (0.0-1.0); %Eosinophils 2.3 % (0.0-10.0); %Monocytes 11.6 % (0.0-10.0); %Neutrophils 60.7 % (42.0-75.0); Hemoglobin 14.1 g/dL (14.0-18.0); Mean Corpuscular HGB CONC 34.2 g/dL (32.0-36.0); Mean Corpuscular Hemoglobin 33.3 pg (27.0-31.0); Mean Corpuscular Volume 97.5 fl (78.0-98.0); Mean Platelet Volume 8.9 fL (7.4-10.4); Platelet Count 167 10x3/uL (130-400); RBC Distribution Width 11.8 % (11.5-14.5); Red Blood Cell (RBC) Count 4.22 mill/uL (4.70-6.10); White Blood Cell (WBC) Count 8.3 10x3/uL (4.8-10.8)
[2022-11-27] MEDS: Vancomycin HCl 750 MG in Sodium Chloride 0.9% 250 ML 250 ML IVPB SCH ×2 (09:19→19:49)
[2022-11-27] MEDS ORDERED: Metoprolol Tartrate 25 MG TAB ONE (09:30)
[2022-11-27] MEDS ORDERED: Lisinopril 10 MG TAB ONE (09:30)
[2022-11-27] MEDS: Amlodipine 10 MG TAB PO SCH (09:35)
[2022-11-27] MEDS: Lisinopril 10 MG TAB PO SCH (09:36)
[2022-11-27] MEDS: Cefepime 2 GM in Sodium Chloride 0.9% 100 ML IVPB SCH (17:40)
[2022-11-28] MEDS: Sodium Chloride 0.9% 1,000 ML IV SCH ×3 (01:08→15:39)
[2022-11-28] MEDS: Cefepime 2 GM in Sodium Chloride 0.9% 100 ML IVPB SCH ×2 (05:26→17:24)
[2022-11-28 08:40] LABS: Vancomycin, Trough 9.5 ug/mL
[2022-11-28] MEDS: Vancomycin HCl 750 MG in Sodium Chloride 0.9% 250 ML 250 ML IVPB SCH (08:48)
[2022-11-28] MEDS: Lisinopril 10 MG TAB PO SCH (08:50)
[2022-11-28] MEDS: Metoprolol Tartrate 25 MG TAB PO SCH ×2 (08:50→20:00)
[2022-11-28] MEDS: Vancomycin 1 GM in Premix Bag 1 BAG IVPB SCH ×2 (08:50→20:00)
[2022-11-28] MEDS: Apixaban 5 MG TAB PO SCH ×2 (08:50→20:00)
[2022-11-28] MEDS: Amlodipine 10 MG TAB PO SCH (08:50)
[2022-11-28] MEDS ORDERED: Electrolyte Replacement Protocol 1 EACH FS SCH (14:30)
[2022-11-28] MEDS ORDERED: Electrolyte Replacement Protocol FS PRN (14:45)
[2022-11-28] MEDS: Folic Acid 1 MG TAB PO SCH (20:00)
[2022-11-28] MEDS: Cyanocobalamin (Vitamin B-12) 1,000 MCG TAB PO SCH (20:01)
[2022-11-28] MEDS: Multivit, Therapeutic 1 TAB PO SCH (20:01)
[2022-11-29] MEDS: Cefepime 2 GM in Sodium Chloride 0.9% 100 ML IVPB SCH ×2 (05:22→17:28)
[2022-11-29 07:04] LABS: #Basophils 0.1 thou/uL (0.0-0.2); #Eosinphils 0.3 thou/uL (0.0-0.7); #Lymphocytes 2.6 thou/uL (1.20-3.40); #Monocytes 0.9 thou/uL (0.11-0.59); #Neutrophils 4.6 thou/uL (1.40-6.50); %Eosinophils 3.7 % (0.0-10.0); %Lymphocytes 30.2 % (21.0-51.0); %Monocytes 10.9 % (0.0-10.0); %Neutrophils 54.2 % (42.0-75.0); Hemoglobin 14.2 g/dL (14.0-18.0); Mean Corpuscular HGB CONC 34.3 g/dL (32.0-36.0); Mean Corpuscular Volume 96.2 fl (78.0-98.0); Mean Platelet Volume 8.5 fL (7.4-10.4); Platelet Count 179 10x3/uL (130-400); RBC Distribution Width 11.7 % (11.5-14.5); White Blood Cell (WBC) Count 8.5 10x3/uL (4.8-10.8)
[2022-11-29 07:28] LABS: Anion Gap 9 mmol/L (10-20); BUN (Urea Nitrogen) 15 mg/dL (8.4-25.7); Calc. Creatinine Clearance 69 mL/min (70-130); Calcium 8.8 mg/dL (7.8-10.44); Carbon Dioxide 22 mmol/L (23-31); Chloride 106 mmol/L (98-107); Estimated GFR 97; Glucose 96 mg/dL (80-115); Magnesium 1.8 mg/dL (1.6-2.6); Phosphorus 2.7 mg/dL (2.3-4.7); Potassium 3.6 mmol/L (3.5-5.1); Sodium 133 mmol/L (136-145)
[2022-11-29] MEDS: Amlodipine 10 MG TAB PO SCH (08:34)
[2022-11-29] MEDS: Apixaban 5 MG TAB PO SCH ×2 (08:34→22:06)
[2022-11-29] MEDS: Lisinopril 10 MG TAB PO SCH (08:34)
[2022-11-29] MEDS: Metoprolol Tartrate 25 MG TAB PO SCH ×2 (08:35→22:06)
[2022-11-29] MEDS: Saccharomyces boulardii 250 MG CAP PO SCH (08:36)
[2022-11-29] MEDS ORDERED: Magnesium 2 GM/50 ML(in water) 2 GM in Premix Bag 1 BAG IVPB SCH (09:00)
[2022-11-29] MEDS: Vancomycin 1 GM in Premix Bag 1 BAG IVPB SCH (10:20)
[2022-11-29] MEDS: Sodium Chloride 0.9% 1,000 ML IV SCH (10:21)
[2022-11-29] MEDS: Folic Acid 1 MG TAB PO SCH (22:06)
[2022-11-29] MEDS: Multivit, Therapeutic 1 TAB PO SCH (22:06)
[2022-11-29] MEDS: Cyanocobalamin (Vitamin B-12) 1,000 MCG TAB PO SCH (22:06)
[2022-11-30 06:38] LABS: #Eosinphils 0.3 thou/uL (0.0-0.7); #Lymphocytes 2.2 thou/uL (1.20-3.40); #Monocytes 0.8 thou/uL (0.11-0.59); #Neutrophils 5.1 thou/uL (1.40-6.50); %Basophils 0.4 % (0.0-1.0); %Eosinophils 3.5 % (0.0-10.0); %Lymphocytes 26.6 % (21.0-51.0); %Monocytes 8.9 % (0.0-10.0); %Neutrophils 60.6 % (42.0-75.0); Hemoglobin 14.7 g/dL (14.0-18.0); Mean Corpuscular HGB CONC 35.1 g/dL (32.0-36.0); Mean Corpuscular Hemoglobin 33.7 pg (27.0-31.0); Mean Platelet Volume 8.2 fL (7.4-10.4); Platelet Count 178 10x3/uL (130-400); RBC Distribution Width 11.7 % (11.5-14.5); Red Blood Cell (RBC) Count 4.36 mill/uL (4.70-6.10); White Blood Cell (WBC) Count 8.4 10x3/uL (4.8-10.8)
[2022-11-30 07:00] LABS: Anion Gap 10 mmol/L (10-20); BUN (Urea Nitrogen) 17 mg/dL (8.4-25.7); Calc. Creatinine Clearance 80 mL/min (70-130); Carbon Dioxide 21 mmol/L (23-31); Chloride 107 mmol/L (98-107); Estimated GFR 101; Glucose 98 mg/dL (80-115); Potassium 3.9 mmol/L (3.5-5.1); Sodium 134 mmol/L (136-145)
[2022-11-30] MEDS: Apixaban 5 MG TAB PO SCH ×2 (09:59→20:15)
[2022-11-30] MEDS: Amlodipine 10 MG TAB PO SCH (09:59)
[2022-11-30] MEDS: Lisinopril 10 MG TAB PO SCH (09:59)
[2022-11-30] MEDS: cefTRIAXone\\ROCEPHIN 1 GM in Sodium Chloride 0.9% 100 ML IVPB SCH (09:59)
[2022-11-30] MEDS: Metoprolol Tartrate 25 MG TAB PO SCH ×2 (09:59→20:15)
[2022-11-30] MEDS: Saccharomyces boulardii 250 MG CAP PO SCH (10:00)
[2022-11-30] MEDS: Sodium Chloride 0.9% 1,000 ML IV SCH (10:02)
[2022-11-30] MEDS: Cyanocobalamin (Vitamin B-12) 1,000 MCG TAB PO SCH (20:15)
[2022-11-30] MEDS: Folic Acid 1 MG TAB PO SCH (20:15)
[2022-11-30] MEDS: Multivit, Therapeutic 1 TAB PO SCH (20:15)
[2022-12-01] MEDS: cefTRIAXone\\ROCEPHIN 1 GM in Sodium Chloride 0.9% 100 ML IVPB SCH (09:00)
[2022-12-01] MEDS: Amlodipine 10 MG TAB PO SCH (09:01)
[2022-12-01] MEDS: Metoprolol Tartrate 25 MG TAB PO SCH ×2 (09:01→20:24)
[2022-12-01] MEDS: Apixaban 5 MG TAB PO SCH ×2 (09:01→20:24)
[2022-12-01] MEDS: Saccharomyces boulardii 250 MG CAP PO SCH (09:02)
[2022-12-01] MEDS: Lisinopril 10 MG TAB PO SCH (09:02)
[2022-12-01] MEDS: Multivit, Therapeutic 1 TAB PO SCH (20:24)
[2022-12-01] MEDS: Folic Acid 1 MG TAB PO SCH (20:24)
[2022-12-01] MEDS: Cyanocobalamin (Vitamin B-12) 1,000 MCG TAB PO SCH (20:25)
[2022-12-02 07:44] LABS: #Basophils 0.1 thou/uL (0.0-0.2); #Eosinphils 0.3 thou/uL (0.0-0.7); #Lymphocytes 2.2 thou/uL (1.20-3.40); #Monocytes 0.8 thou/uL (0.11-0.59); #Neutrophils 6.1 thou/uL (1.40-6.50); %Basophils 0.6 % (0.0-1.0); %Lymphocytes 22.8 % (21.0-51.0); %Monocytes 8.4 % (0.0-10.0); %Neutrophils 65.1 % (42.0-75.0); Hemoglobin 14.7 g/dL (14.0-18.0); Mean Corpuscular HGB CONC 34.6 g/dL (32.0-36.0); Mean Corpuscular Hemoglobin 33.7 pg (27.0-31.0); Mean Corpuscular Volume 97.3 fl (78.0-98.0); Mean Platelet Volume 8.6 fL (7.4-10.4); Platelet Count 199 10x3/uL (130-400); RBC Distribution Width 11.8 % (11.5-14.5); Red Blood Cell (RBC) Count 4.35 mill/uL (4.70-6.10); White Blood Cell (WBC) Count 9.4 10x3/uL (4.8-10.8)
[2022-12-02 07:53] LABS: Anion Gap 12 mmol/L (10-20); BUN (Urea Nitrogen) 20 mg/dL (8.4-25.7); Calc. Creatinine Clearance 79 mL/min (70-130); Calcium 9.5 mg/dL (7.8-10.44); Carbon Dioxide 24 mmol/L (23-31); Chloride 104 mmol/L (98-107); Estimated GFR 101; Glucose 101 mg/dL (80-115); Potassium 3.9 mmol/L (3.5-5.1); Sodium 136 mmol/L (136-145)
[2022-12-02] MEDS: Lisinopril 10 MG TAB PO SCH (08:31)
[2022-12-02] MEDS: Saccharomyces boulardii 250 MG CAP PO SCH (08:31)
[2022-12-02] MEDS: Amlodipine 10 MG TAB PO SCH (08:31)
[2022-12-02] MEDS: Metoprolol Tartrate 25 MG TAB PO SCH ×2 (08:31→20:33)
[2022-12-02] MEDS: Apixaban 5 MG TAB PO SCH ×2 (08:31→20:34)
[2022-12-02] MEDS: cefTRIAXone\\ROCEPHIN 1 GM in Sodium Chloride 0.9% 100 ML IVPB SCH (08:31)
[2022-12-02] MEDS: Folic Acid 1 MG TAB PO SCH (20:32)
[2022-12-02] MEDS: hydrALAZINE 25 MG TAB PO SCH (20:32)
[2022-12-02] MEDS: Cyanocobalamin (Vitamin B-12) 1,000 MCG TAB PO SCH (20:34)
[2022-12-02] MEDS: Multivit, Therapeutic 1 TAB PO SCH (20:34)
[2022-12-03 06:38] LABS: #Basophils 0.1 thou/uL (0.0-0.2); #Eosinphils 0.3 thou/uL (0.0-0.7); #Lymphocytes 2.4 thou/uL (1.20-3.40); #Monocytes 0.8 thou/uL (0.11-0.59); #Neutrophils 5.9 thou/uL (1.40-6.50); %Basophils 0.5 % (0.0-1.0); %Eosinophils 2.7 % (0.0-10.0); %Lymphocytes 25.4 % (21.0-51.0); %Monocytes 8.8 % (0.0-10.0); %Neutrophils 62.6 % (42.0-75.0); Hemoglobin 15.3 g/dL (14.0-18.0); Mean Corpuscular HGB CONC 34.4 g/dL (32.0-36.0); Mean Corpuscular Hemoglobin 33.5 pg (27.0-31.0); Mean Corpuscular Volume 97.3 fl (78.0-98.0); Mean Platelet Volume 8.1 fL (7.4-10.4); Platelet Count 199 10x3/uL (130-400); Red Blood Cell (RBC) Count 4.58 mill/uL (4.70-6.10); White Blood Cell (WBC) Count 9.5 10x3/uL (4.8-10.8)
[2022-12-03 06:52] LABS: Anion Gap 11 mmol/L (10-20); BUN (Urea Nitrogen) 25 mg/dL (8.4-25.7); Calc. Creatinine Clearance 77 mL/min (70-130); Carbon Dioxide 23 mmol/L (23-31); Chloride 105 mmol/L (98-107); Estimated GFR 100; Glucose 97 mg/dL (80-115); Potassium 4.2 mmol/L (3.5-5.1); Sodium 135 mmol/L (136-145)
[2022-12-03] MEDS: hydrALAZINE 25 MG TAB PO SCH ×2 (08:43→20:19)
[2022-12-03] MEDS: cefTRIAXone\\ROCEPHIN 1 GM in Sodium Chloride 0.9% 100 ML IVPB SCH (08:43)
[2022-12-03] MEDS: Amlodipine 10 MG TAB PO SCH (08:43)
[2022-12-03] MEDS: Apixaban 5 MG TAB PO SCH ×2 (08:43→20:19)
[2022-12-03] MEDS: Metoprolol Tartrate 25 MG TAB PO SCH ×2 (08:43→20:19)
[2022-12-03] MEDS: Lisinopril 10 MG TAB PO SCH (08:43)
[2022-12-03] MEDS: Saccharomyces boulardii 250 MG CAP PO SCH (08:43)
[2022-12-03] MEDS: Cyanocobalamin (Vitamin B-12) 1,000 MCG TAB PO SCH (20:18)
[2022-12-03] MEDS: Multivit, Therapeutic 1 TAB PO SCH (20:19)
[2022-12-03] MEDS: Folic Acid 1 MG TAB PO SCH (20:19)
[2022-12-04 07:16] LABS: #Basophils 0.1 thou/uL (0.0-0.2); #Eosinphils 0.2 thou/uL (0.0-0.7); #Lymphocytes 2.6 thou/uL (1.20-3.40); #Monocytes 0.9 thou/uL (0.11-0.59); #Neutrophils 5.9 thou/uL (1.40-6.50); %Basophils 0.9 % (0.0-1.0); %Eosinophils 2.4 % (0.0-10.0); %Monocytes 8.9 % (0.0-10.0); %Neutrophils 60.8 % (42.0-75.0); Hemoglobin 14.9 g/dL (14.0-18.0); Mean Corpuscular HGB CONC 33.9 g/dL (32.0-36.0); Mean Corpuscular Hemoglobin 33.2 pg (27.0-31.0); Mean Platelet Volume 8.1 fL (7.4-10.4); Platelet Count 203 10x3/uL (130-400); RBC Distribution Width 12.1 % (11.5-14.5); Red Blood Cell (RBC) Count 4.48 mill/uL (4.70-6.10); White Blood Cell (WBC) Count 9.8 10x3/uL (4.8-10.8)
[2022-12-04 07:31] LABS: Anion Gap 10 mmol/L (10-20); BUN (Urea Nitrogen) 30 mg/dL (8.4-25.7); Calc. Creatinine Clearance 71 mL/min (70-130); Calcium 9.9 mg/dL (7.8-10.44); Carbon Dioxide 23 mmol/L (23-31); Chloride 106 mmol/L (98-107); Estimated GFR 98; Glucose 90 mg/dL (80-115); Potassium 4.2 mmol/L (3.5-5.1); Sodium 135 mmol/L (136-145)
[2022-12-04 07:40] VITALS: TEMP 97.6
[2022-12-04] MEDS: cefTRIAXone\\ROCEPHIN 1 GM in Sodium Chloride 0.9% 100 ML IVPB SCH (08:09)
[2022-12-04] MEDS: Saccharomyces boulardii 250 MG CAP PO SCH (08:10)
[2022-12-04] MEDS: Metoprolol Tartrate 25 MG TAB PO SCH (08:10)
[2022-12-04] MEDS: hydrALAZINE 25 MG TAB PO SCH (08:10)
[2022-12-04] MEDS: Apixaban 5 MG TAB PO SCH (08:10)
[2022-12-04] MEDS: Lisinopril 10 MG TAB PO SCH (08:10)
[2022-12-04] MEDS: Amlodipine 10 MG TAB PO SCH (08:10)
[2022-12-04 11:58] VITALS: BP 163/81
[2022-12-04] MEDS ORDERED: Metoprolol Tartrate 25 MG TAB PO SCH (21:00)
== END 2022-12-04 14:23 | DRG 698 ==
LOC: ERS 14:08 → ERHOLD 18:00 → T4-B 11-27 09:53
PROVIDERS: ADMIT Internal Medicine; ATTEND Internal Medicine
PROC: 0T2BX0Z Change Drainage Device in Bladder, External Approach (ICD-10-PCS; principal; 2022-11-26)
DX: T83.518A Infection and inflammatory reaction due to other urinary catheter, initial encounter (principal); G93.41 Metabolic encephalopathy; N39.0 Urinary tract infection, site not specified; E87.20 Acidosis, unspecified; Z20.822 Contact with and (suspected) exposure to COVID-19; B18.2 Chronic viral hepatitis C; M10.9 Gout, unspecified; I48.91 Unspecified atrial fibrillation; I12.9 Hypertensive chronic kidney disease with stage 1 through stage 4 chronic kidney disease, or unspecified chronic kidney disease; N18.9 Chronic kidney disease, unspecified; F17.210 Nicotine dependence, cigarettes, uncomplicated; Y84.6 Urinary catheterization as the cause of abnormal reaction of the patient, or of later complication, without mention of misadventure at the time of the procedure; E86.0 Dehydration; I16.0 Hypertensive urgency; Z79.01 Long term (current) use of anticoagulants; Z79.899 Other long term (current) drug therapy; Z93.3 Colostomy status
CPT/HCPCS: 36415; 51702; 80048; 80053; 80202; 81003; 81015; 83605; 83690; 83735; 84100; 84443; 84484; 85025; 87040; 87077; 87086; 87186; 93005; 96374; 96375; J0692; J0696; J2405; J3370; J3370-JW; J3475; J3490; J7050; U0003; U0005